=== PATIENT | female | born 1985 | race Caucasian/White ===

== ENCOUNTER → 2016-11-27 | Outpatient (CLI) | payer OTHER ==
--- NOTE | 2016-11-27 10:11 | XR ---
EXAMINATION TYPE: XR ankle complete RT DATE OF EXAM: 11/27/2016 COMPARISON: NONE HISTORY: Pain FINDINGS: Three views of the ankle demonstrate the ankle mortise to be intact and symmetric. The joint spaces are preserved. The osseous structures are intact. IMPRESSION: 1. No definite acute fracture or dislocation, if symptoms persist follow-up study in 7 to 10 days wou ld be suggested. Fifth metatarsals not adequately seen by x-ray the ankle. If there is concern for fi fth metatarsal injury correlate with dedicated foot series. 2. There does appear to be soft tissue edema surrounding the ankle.
== END | disposition home or self-care (01) ==
LOC: RADXRMAIN 09:34
PROVIDERS: ATTEND Physician Assistant
DX: S99.911D Unspecified injury of right ankle, subsequent encounter (principal)

== ENCOUNTER 2017-08-21 18:54 | Emergency (ER) | payer OTHER ==
[2017-08-21] MEDS ORDERED: SODIUM CHLORIDE 0.9% 1,000 ML IV STA ×2 (18:59)
[2017-08-21] MEDS ORDERED: ACETAMINOPHEN IV (For NPO) 1,000 MG in EMPTY BAG 1 BAG IVPB STA (18:59)
[2017-08-21 19:01] VITALS: RESP 18
[2017-08-21 19:12] LABS: Glucose,Whole Blood 115 mg/dL (75-99)
[2017-08-21 19:19] LABS: Basophils # (A) 0.1 k/uL (0-0.2); Basophils % (A) 1 %; Eosinophils # (A) 0.3 k/uL (0-0.7); Eosinophils % (A) 2 %; HCT 43.7 % (34.0-46.0); HGB 15.1 gm/dL (11.4-16.0); Lymphocytes # (A) 2.6 k/uL (1.0-4.8); Lymphocytes % (A) 16 %; MCH 33.1 pg (25.0-35.0); MCHC 34.5 g/dL (31.0-37.0); MCV 95.9 fL (80.0-100.0); Mean Platelet Volume 6.7; Monocytes # (A) 0.8 k/uL (0-1.0); Monocytes % (A) 5 %; Neutrophils # (A) 12.2 k/uL (1.3-7.7); Neutrophils % (A) 75 %; Platelet Count 430 k/uL (150-450); RBC 4.56 m/uL (3.80-5.40); RDW 12.6 % (11.5-15.5); WBC 16.2 k/uL (3.8-10.6)
[2017-08-21 19:28] LABS: ALT 69 U/L (9-52); AST 99 U/L (14-36); Albumin 4.8 g/dL (3.5-5.0); Alcohol <10 mg/dL; Alkaline Phosphatase 82 U/L (38-126); Amylase 52 U/L (30-110); Anion Gap 15 mmol/L; Blood Urea Nitrogen 18 mg/dL (7-17); Calcium 10.5 mg/dL (8.4-10.2); Carbon Dioxide 24 mmol/L (22-30); Chloride 98 mmol/L (98-107); Glucose 101 mg/dL (74-99); Lipase 133 U/L (23-300); Potassium 4.2 mmol/L (3.5-5.1); Sodium 137 mmol/L (137-145); Total Bilirubin 2.6 mg/dL (0.2-1.3); Total Protein 7.7 g/dL (6.3-8.2)
--- NOTE | 2017-08-21 19:35 | XR ---
EXAMINATION TYPE: XR chest 1V portable DATE OF EXAM: 08/21/2017 COMPARISON: 09/22/2013 HISTORY: Crushed by a horse pain TECHNIQUE: Single frontal view of the chest is obtained. FINDINGS: Heart and mediastinum are normal. Lungs are clear. Diaphragm is normal. There is no sign o f pleural effusion or pneumothorax. Bony thorax appears intact. IMPRESSION: Normal chest. No change.
[2017-08-21 19:36] LABS: Creatine Kinase 377 U/L (30-135); INR 1.1 (<1.2); Prothrombin Time 10.3 sec (9.0-12.0)
--- NOTE | 2017-08-21 19:36 | XR ---
EXAMINATION TYPE: XR pelvis AP view DATE OF EXAM: 08/21/2017 COMPARISON: NONE HISTORY: Trauma. Crush by worse TECHNIQUE: Single view FINDINGS: The pelvic ring is intact. Proximal femurs and hip joints appear normal. Sacroiliac joints appear normal. IMPRESSION: Normal pelvis
--- NOTE | 2017-08-21 19:42 | ED ---
General Adult HPI - General Chief complaint: Trauma Stated complaint: LOWER BACK INJURY, HORSE FELL ON HER Time Seen by Provider: 08/21/17 18:58 Source: patient, RN notes reviewed, old records reviewed Mode of arrival: wheelchair Limitations: no limitations - History of Present Illness Initial comments: This is a 32-year-old female to the ER for evaluation. This patient presents for evaluation regarding found. Patient is no real significant medical history , patient comes in by family car for evaluation regarding course on outpatient. Patient already is back pain. No loss conscious did not hit her head, patient denies taking any current medications. Denies drugs or alcohol today. Patient is alert and oriented to chest pain. No nausea vomiting. No active bleeding - Related Data Home Medications Medication Instructions Recorded Confirmed LORazepam [Ativan] 1 mg PO TID PRN 08/21/17 08/21/17 Allergies Allergy/AdvReac Type Severity Reaction Status Date / Time No Known Allergies Allergy Verified 09/22/13 19:23 Review of Systems ROS Statement: Those systems with pertinent positive or pertinent negative responses have been documented in the HPI. ROS Other: All systems not noted in ROS Statement are negative. Past Medical History Additional Past Medical History / Comment(s): PNEUMOTHORAX, lupus History of Any Multi-Drug Resistant Organisms: None Reported Additional Past Surgical History / Comment(s): CHEST TUBE INSERTION Past Psychological History: Anxiety Smoking Status: Current some day smoker Past Alcohol Use History: Occasional Past Drug Use History: Heroin General Exam Limitations: no limitations General appearance: alert, in no apparent distress, anxious Head exam: Present: atraumatic, normocephalic, normal inspection Eye exam: Present: normal appearance, PERRL, EOMI. Absent: scleral icterus, conjunctival injection, periorbital swelling ENT exam: Present: normal exam, mucous membranes moist Neck exam: Present: normal inspection. Absent: tenderness, meningismus, lymphadenopathy Respiratory exam: Present: normal lung sounds bilaterally. Absent: respiratory distress, wheezes, rales, rhonchi, stridor Cardiovascular Exam: Present: regular rate, normal rhythm, normal heart sounds. Absent: systolic murmur, diastolic murmur, rubs, gallop, clicks GI/Abdominal exam: Present: soft, normal bowel sounds. Absent: distended, tenderness, guarding, rebound, rigid Extremities exam: Present: normal inspection, full ROM, normal capillary refill. Absent: tenderness, pedal edema, joint swelling, calf tenderness Back exam: Present: normal inspection Neurological exam: Present: alert, oriented X3, CN II-XII intact Psychiatric exam: Present: normal affect, normal mood Skin exam: Present: warm, dry, intact, normal color. Absent: rash Course Vital Signs 08/21/17 18:59 Temperature 98.5 F Pulse Rate 76 Respiratory 18 Rate Blood Pressure 83/51 O2 Sat by Pulse 100 Oximetry - Reevaluation(s) Reevaluation #1: 08/21/17 20:01 Surgeries patient regarding symptoms and event. they are aware Reevaluation #2: 08/21/17 20:02 patient has adequate pain control EKG Findings - EKG Comments: EKG Findings:: EKG shows normal sinus rhythm rate of 75, TN 1:30, QRS 86, QTc 428 Medical Decision Making - Medical Decision Making 32 female the ER status post ORIF regarding injury, patient does have back pain , back contusion, possible hairline sacral fracture. No treatment needed. Patient given pain control here in the ER, Motrin, for pain at home. No neurological deficit. Patient can be discharged - Lab Data Result diagrams: 08/21/17 19:10 08/21/17 19:10 Lab Results 08/21/17 08/21/17 08/21/17 Range/Units 19:10 19:10 19:10 WBC 16.2 H (3.8-10.6) k/uL RBC 4.56 (3.80-5.40) m/uL Hgb 15.1 (11.4-16.0) gm/dL Hct 43.7 (34.0-46.0) % MCV 95.9 (80.0-100.0) fL MCH 33.1 (25.0-35.0) pg MCHC 34.5 (31.0-37.0) g/dL RDW 12.6 (11.5-15.5) % Plt Count 430 (150-450) k/uL Neutrophils % 75 % Lymphocytes % 16 % Monocytes % 5 % Eosinophils % 2 % Basophils % 1 % Neutrophils # 12.2 H (1.3-7.7) k/uL Lymphocytes # 2.6 (1.0-4.8) k/uL Monocytes # 0.8 (0-1.0) k/uL Eosinophils # 0.3 (0-0.7) k/uL Basophils # 0.1 (0-0.2) k/uL PT (9.0-12.0) sec INR (<1.2) APTT (22.0-30.0) sec Sodium 137 (137-145) mmol/L Potassium 4.2 (3.5-5.1) mmol/L Chloride 98 (98-107) mmol/L Carbon Dioxide 24 (22-30) mmol/L Anion Gap 15 mmol/L BUN 18 H (7-17) mg/dL Creatinine 0.90 (0.52-1.04) mg/dL Est GFR (CKD-EPI)AfAm >90 (>60 ml/min/1.73 sqM) Est GFR (CKD-EPI)NonAf 85 (>60 ml/min/1.73 sqM) Glucose 101 H (74-99) mg/dL POC Glucose (mg/dL) 115 H (75-99) mg/dL POC Glu Data Collection Technician ID Petitjayden Becky Plasma Lactic Acid Brayden (0.7-2.0) mmol/L Calcium 10.5 H (8.4-10.2) mg/dL Total Bilirubin 2.6 H (0.2-1.3) mg/dL AST 99 H (14-36) U/L ALT 69 H (9-52) U/L Alkaline Phosphatase 82 (38-126) U/L Total Creatine Kinase (30-135) U/L CK-MB (CK-2) (0.0-2.4) ng/mL CK-MB (CK-2) Rel Index Troponin I (0.000-0.034) ng/mL Total Protein 7.7 (6.3-8.2) g/dL Albumin 4.8 (3.5-5.0) g/dL Amylase 52 (30-110) U/L Lipase 133 (23-300) U/L Serum Alcohol <10 mg/dL Blood Type Blood Type Recheck Antibody Screen Spec Expiration Date 08/21/17 08/21/17 08/21/17 Range/Units 19:10 19:10 19:10 WBC (3.8-10.6) k/uL RBC (3.80-5.40) m/uL Hgb (11.4-16.0) gm/dL Hct (34.0-46.0) % MCV (80.0-100.0) fL MCH (25.0-35.0) pg MCHC (31.0-37.0) g/dL RDW (11.5-15.5) % Plt Count (150-450) k/uL Neutrophils % % Lymphocytes % % Monocytes % % Eosinophils % % Basophils % % Neutrophils # (1.3-7.7) k/uL Lymphocytes # (1.0-4.8) k/uL Monocytes # (0-1.0) k/uL Eosinophils # (0-0.7) k/uL Basophils # (0-0.2) k/uL PT 10.3 (9.0-12.0) sec INR 1.1 (<1.2) APTT 21.0 L (22.0-30.0) sec Sodium (137-145) mmol/L Potassium (3.5-5.1) mmol/L Chloride (98-107) mmol/L Carbon Dioxide (22-30) mmol/L Anion Gap mmol/L BUN (7-17) mg/dL Creatinine (0.52-1.04) mg/dL Est GFR (CKD-EPI)AfAm (>60 ml/min/1.73 sqM) Est GFR (CKD-EPI)NonAf (>60 ml/min/1.73 sqM) Glucose (74-99) mg/dL POC Glucose (mg/dL) (75-99) mg/dL POC Glu Data Collection Technician ID Plasma Lactic Acid Brayden 3.2 H* (0.7-2.0) mmol/L Calcium (8.4-10.2) mg/dL Total Bilirubin (0.2-1.3) mg/dL AST (14-36) U/L ALT (9-52) U/L Alkaline Phosphatase (38-126) U/L Total Creatine Kinase 377 H (30-135) U/L CK-MB (CK-2) 9.2 H* (0.0-2.4) ng/mL CK-MB (CK-2) Rel Index 2.4 Troponin I <0.012 (0.000-0.034) ng/mL Total Protein (6.3-8.2) g/dL Albumin (3.5-5.0) g/dL Amylase (30-110) U/L Lipase (23-300) U/L Serum Alcohol mg/dL Blood Type Blood Type Recheck Antibody Screen Spec Expiration Date 08/21/17 Range/Units 19:10 WBC (3.8-10.6) k/uL RBC (3.80-5.40) m/uL Hgb (11.4-16.0) gm/dL Hct (34.0-46.0) % MCV (80.0-100.0) fL MCH (25.0-35.0) pg MCHC (31.0-37.0) g/dL RDW (11.5-15.5) % Plt Count (150-450) k/uL Neutrophils % % Lymphocytes % % Monocytes % % Eosinophils % % Basophils % % Neutrophils # (1.3-7.7) k/uL Lymphocytes # (1.0-4.8) k/uL Monocytes # (0-1.0) k/uL Eosinophils # (0-0.7) k/uL Basophils # (0-0.2) k/uL PT (9.0-12.0) sec INR (<1.2) APTT (22.0-30.0) sec Sodium (137-145) mmol/L Potassium (3.5-5.1) mmol/L Chloride (98-107) mmol/L Carbon Dioxide (22-30) mmol/L Anion Gap mmol/L BUN (7-17) mg/dL Creatinine (0.52-1.04) mg/dL Est GFR (CKD-EPI)AfAm (>60 ml/min/1.73 sqM) Est GFR (CKD-EPI)NonAf (>60 ml/min/1.73 sqM) Glucose (74-99) mg/dL POC Glucose (mg/dL) (75-99) mg/dL POC Glu Data Collection Technician ID Plasma Lactic Acid Brayden (0.7-2.0) mmol/L Calcium (8.4-10.2) mg/dL Total Bilirubin (0.2-1.3) mg/dL AST (14-36) U/L ALT (9-52) U/L Alkaline Phosphatase (38-126) U/L Total Creatine Kinase (30-135) U/L CK-MB (CK-2) (0.0-2.4) ng/mL CK-MB (CK-2) Rel Index Troponin I (0.000-0.034) ng/mL Total Protein (6.3-8.2) g/dL Albumin (3.5-5.0) g/dL Amylase (30-110) U/L Lipase (23-300) U/L Serum Alcohol mg/dL Blood Type O Positive Blood Type Recheck No Antibody Screen NEGATIVE Spec Expiration Date 08/24/2017 - 2309 - Radiology Data Radiology results: report reviewed (CT chest and pelvis is negative for traumatic injury possible sacral hairline fracture), image reviewed Disposition Clinical Impression: Back contusion, Back pain, Injury while horseback riding Narrative: Possible Sacrum Fx Disposition: HOME SELF-CARE Condition: Good Instructions: Contusion in Adults (ED) Is patient prescribed a controlled substance at d/c from ED?: No Referrals: Jude Barksdale DO [Primary Care Provider] - 1-2 days
[2017-08-21 19:50] LABS: Troponin I <0.012 ng/mL (0.000-0.034)
[2017-08-21 20:09] LABS: Creatine Kinase MB 9.2 ng/mL (0.0-2.4)
[2017-08-21] MEDS ORDERED: MORPHINE SULFATE 2 MG/ML SYRINGE IVP STA (20:40)
--- NOTE | 2017-08-21 20:40 | CT ---
EXAMINATION TYPE: CT ChestAbdPelvis w con DATE OF EXAM: 08/21/2017 COMPARISON: NONE HISTORY: Horse fell on top of patient CT DLP: 1176 mGycm Automated exposure control for dose reduction was used. CONTRAST: CT scan of the chest, abdomen and pelvis is performed without Oral Contrast and with IV Contrast, pat ient injected with 100 mL of Isovue 300. FINDINGS: The lungs are clear. There is no evidence of pleural effusion or pneumothorax. Heart size is normal. Mediastinum is normal. Thoracic and abdominal aorta appear intact. Liver spleen pancreas gallbladder appear normal. Bile ducts are not dilated. There is no adrenal mass . Kidneys show satisfactory contrast opacification. There is no hydronephrosis. Appendix appears norm al. I see no intestinal wall thickening. There are no dilated loops. Bladder distends smoothly. There is no evidence of a pelvic mass. There is no free fluid in the pelvis. The thoracic and lumbar spine appear intact.: There is a lucent line through the S1 vertebral body in the sagittal plane midline that could be a naik irline fracture. IMPRESSION: No evidence of traumatic injury within the chest abdomen pelvis. Possible hairline nondisplaced fracture of the midline sacrum at the S1 level.
[2017-08-21 21:21] LABS: Appearance,Urine Clear (Clear); Bilirubin,Urine Negative (Negative); Blood,Urine Trace (Negative); Color,Urine Yellow; Glucose,Urine (UA) Negative (Negative); Hyaline Casts,Urine 5 /lpf (0-2); Ketones,Urine 1+ (Negative); Leukocyte Esterase,Urine Negative (Negative); Nitrite,Urine Negative (Negative); PH, Urine 7.5 (5.0-8.0); Protein,Urine 1+ (Negative); RBC,Urine 2 /hpf (0-5); Squamous Epithelial Cell,Urine 5 /hpf (0-4); WBC,Urine 3 /hpf (0-5)
[2017-08-21 21:34] LABS: Cocaine Screen,Urine Not Detected (NotDetected); Opiate Screen,Urine Detected (NotDetected); Phencyclidine Screen,Urine Not Detected (NotDetected); Urn Cannabinoid Scrn Not Detected (NotDetected)
[2017-08-21 21:35] LABS: Amphetamine Screen,Urine Not Detected (NotDetected); Barbiturate Screen,Urine Not Detected (NotDetected); Benzodiazepines Screen,Urine Not Detected (NotDetected); Methadone Screen, Urine Not Detected (NotDetected); Oxycodone Screen, Urine Not Detected (NotDetected); Tricyclic Antidepressant,Urine Not Detected (NotDetected)
[2017-08-21 21:47] LABS: Specific Gravity,Urine >1.050 (1.001-1.035)
[2017-08-21 22:01] VITALS: BP 110/59; PULSE 70; TEMP 98
== END 2017-08-21 21:45 | disposition home or self-care (01) ==
LOC: EC 18:54
DX: S20.229A Contusion of unspecified back wall of thorax, initial encounter (principal); F17.200 Nicotine dependence, unspecified, uncomplicated; V80.010A Animal-rider injured by fall from or being thrown from horse in noncollision accident, initial encounter; W55.12XA Struck by horse, initial encounter; Y93.52 Activity, horseback riding
CPT/HCPCS: 36415; 93005; 86900; 86901; 80053; 82150; 82550; 82553; 83605; 83690; 84484; 85025; 85610; 85730; 86850; 81001; 81025; 80306; 80320; 72170; 71045; 71260; 74177; 99284; 96374; 96375; 96361 ×2; J2270; J0131; Q9967

== ENCOUNTER → 2018-06-21 | Outpatient (CLI) | payer OTHER ==
--- NOTE | 2018-06-21 22:45 | MR ---
EXAMINATION TYPE: MR abdomen wo/w con DATE OF EXAM: 06/21/2018 COMPARISON: CT chest abdomen pelvis August 21, 2017. HISTORY: Acute pancreatitis CONTRAST: Standard multiplanar, multisequence MRI departmental protocol utilizing 10 mL intravenous Gadavist ga dolinium contrast. Imaging is performed on the abdomen focusing on the pancreas. FINDINGS: Pancreas: Pancreas is overall normal in size. Postcontrast images show uniform enhancement without ar eas of nonenhancement or necrosis. No surrounding fluid or mesenteric inflammation is present. No julia picious solid or cystic mass is seen. Pancreatic duct is not well seen due to small caliber. No suspi cious dilatation is noted. Other: Lung bases are clear, no pleural or pericardial effusion is seen. The liver, gallbladder, sple en, and both adrenal glands are normal in size. There is no concerning renal mass or hydronephrosis. There is no suspicious small or large bowel dilatation. Osseous structures are intact. No abdominal a scites is seen. No suspicious abdominal adenopathy is noted. IMPRESSION: No MRI evidence for complication related to acute pancreatitis. Unremarkable study.
== END ==
LOC: RADMRIMAIN 11:10
PROVIDERS: ATTEND Internal Medicine
DX: K85.90 Acute pancreatitis without necrosis or infection, unspecified (principal)
CPT/HCPCS: 74183; A9585

== ENCOUNTER → 2018-07-05 | Outpatient (CLI) | payer OTHER ==
--- NOTE | 2018-07-05 21:49 | EST ---
EXERCISE STRESS AGE: 33 SEX: Female HT: 69 WT: 215 PROTOCOL: Ralph STAGE: 3 DURATION OF EXERCISE: 8:00 HEART RATE REST: 87 BLOOD PRESSURE REST: 119/75 MAXIMUM HEART RATE ACHIEVED: 166 MAXIMUM BLOOD PRESSURE: 183/90 85% MPHR: 158 100% MPHR: 186 METS: 9.7 INDICATIONS: Chest pain. CLINICAL INFORMATION: Baseline heart rate 87 beats per minute. Baseline blood pressure 119/75 mmHg. Patient exercised on Ralph protocol for 8 minutes, achieving a peak heart rate of 166 beats per minute. Normal blood pressure response to exercise. There was no ECG evidence for ischemia. No arrhythmias were noted. The patient complained of shortness of breath and chest pain the procedure. IMPRESSION: Average exercise capacity. Normal heart rate and blood pressure response to exercise. No arrhythmias noted. No ECG evidence for ischemia noted. Patient complained of shortness of breath and chest pain the procedure. MMODL / IJN: [id number] /
== END | disposition home or self-care (01) ==
LOC: RADNMMAIN 08:37
PROVIDERS: ATTEND Family Medicine
DX: R07.1 Chest pain on breathing (principal)
CPT/HCPCS: 93017

== ENCOUNTER 2018-10-24 10:19 | Day surgery (SDC) | payer OTHER ==
[2018-10-20 10:12] VITALS: BMI 31.0
[~2018-10-24 10:19] MED LIST: LACTATED RINGERS 1,000 ML IV SCH
[2018-10-24 10:48] VITALS: RESP 16; TEMP 97.8
[2018-10-24] MEDS ORDERED: LIDOCAINE 1% 20 ML VIAL (10MG/ML) FOR IV START INTRADERMA ONE (10:58)
[2018-10-24] MEDS ORDERED: LIDOCAINE 1% INJ 10MG/ML (20 ML MDV) ONE (11:26)
[2018-10-24] MEDS ORDERED: MIDAZOLAM 2 MG/2 ML VIAL ONE (11:26)
[2018-10-24] MEDS ORDERED: PROPOFOL 10 MG/ML 20 ML VIAL IV ONE (11:26)
[2018-10-24] MEDS ORDERED: fentaNYL (PF) 50 MCG/ML 2 ML AMP ONE (11:26)
--- NOTE | 2018-10-24 12:18 | P.PCN ---
Date of Procedure: 10/24/18 Description of Procedure: Brief history: Patient is a pleasant scheduled for an elective upper endoscopy as well as colonoscopy as a part of evaluation of GERD and a change in bowel habits. The patient reports breakthrough reflux on a daily basis. Currently the patient is on omeprazole 40 mg twice daily and ranitidine twice daily. She also had reported altered bowel functions with alternating constipation and diarrhea. Loose stools will occur up to 10 times per day. Stool studies in the hospital have been negative. Procedure performed: Esophagogastroduodenoscopy with biopsy Colonoscopy with biopsy and polypectomy Estimated blood loss: Minimal. Preoperative diagnosis: Gastroesophageal reflux disease, altered bowel function, abdominal pain Anesthesia: MAC Procedure: After informed consent was obtained from the patient was brought into the endoscopy unit and IV sedation was administered by anesthesia under continuous monitoring. Initially upper endoscopy was done. The Olympus GF 190 video endoscope was inserted inserted into the mouth and esophagus intubated without any difficulty and was gradually advanced into the stomach and duodenum and carefully examined. The bulb and second part of the duodenum appeared normal, with biopsies taken. The scope was then withdrawn into the stomach adequately insufflated with air and upon careful examination the antrum and body, cardia and fundus appeared normal, except for some mild scattered erythema in the antr um and body suggestive of mild gastritis with biopsies taken. The scope was then withdrawn into the esophagus. A 3 cm hiatal hernia was noted. The GE junction was located at 37 cm to the incisors. It appeared regular with no erythema erosions or ulcerations. Rest of the esophagus appeared normal, with biopsies of the midesophagus taken. Patient tolerated the procedure well. At this time the patient continued to remain sedation. Initial digital rectal examination was normal. Olympus CF 190 video colonoscope was then inserted into the rectum and gradually advanced to the cecum without any difficulty. Careful examination was performed as the scope was gradually being withdrawn. The prep was excellent. The cecum, ascending colon, transverse colon, descending colon, sigmoid colon and rectum appeared normal, with random biopsies taken of the right colon and left colon. The terminal ileum was also intubated and appeared normal with biopsies taken. 2 diminutive 2 mm rectal polyp was removed with cold forceps. Retroflexion was performed in the rectum and no lesions were noted, with mild internal hemorrhoids seen. Patient tolerated the procedure well. Impression: 1. Mild gastritis antrum and body, biopsied. 3 cm hiatal hernia. Duodenal biopsies. Mid esophageal biopsies. 2. Normal-appearing colon and terminal ileum, with biopsies of the terminal ileum, right colon and left colon. Mild internal hemorrhoids. Diminutive rectal polyp removed with cold forcep. Recommendations: Findings of this examination were discussed with the patient as well as her mother. Okay to resume diet. Await pathology from biopsies and polypectomy. Follow up with gastroenterology as previously scheduled. Continue current medical management.
[2018-10-24 12:44] VITALS: BP 130/84; PULSE 56
== END 2018-10-24 12:45 | disposition home or self-care (01) ==
LOC: ORWHC2ENDO 10:19
PROVIDERS: ATTEND Internal Medicine
DX: K62.1 Rectal polyp (principal); K44.9 Diaphragmatic hernia without obstruction or gangrene; K21.0 Gastro-esophageal reflux disease with esophagitis; K29.50 Unspecified chronic gastritis without bleeding; K64.8 Other hemorrhoids; M32.9 Systemic lupus erythematosus, unspecified; Z79.1 Long term (current) use of non-steroidal anti-inflammatories (NSAID); Z79.899 Other long term (current) drug therapy; Z87.891 Personal history of nicotine dependence; Z80.8 Family history of malignant neoplasm of other organs or systems
CPT/HCPCS: 81025; 88305; 45380; 43239; J2250; J2001; J3010; J2704

== ENCOUNTER 2019-03-01 01:42 | Observation (INO) | payer OTHER ==
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
[2019-03-01 02:59] LABS: Basophils # (A) 0.1 k/uL (0-0.2); Basophils % (A) 2 %; Eosinophils # (A) 0.2 k/uL (0-0.7); Eosinophils % (A) 4 %; HCT 44.1 % (34.0-46.0); HGB 14.9 gm/dL (11.4-16.0); Lymphocytes # (A) 2.5 k/uL (1.0-4.8); Lymphocytes % (A) 40 %; MCH 34.7 pg (25.0-35.0); MCHC 33.9 g/dL (31.0-37.0); MCV 102.5 fL (80.0-100.0); Mean Platelet Volume 7.1; Monocytes # (A) 0.4 k/uL (0-1.0); Monocytes % (A) 6 %; Neutrophils # (A) 2.8 k/uL (1.3-7.7); Neutrophils % (A) 46 %; Platelet Count 419 k/uL (150-450); RDW 11.8 % (11.5-15.5); WBC 6.2 k/uL (3.8-10.6)
[2019-03-01 03:07] LABS: ALT 57 U/L (4-34); AST 59 U/L (14-36); Acetaminophen <10.0 ug/mL; African American GFR (CKD) >90 (>60 ml/min/1.73 sqM); Albumin 4.6 g/dL (3.5-5.0); Alkaline Phosphatase 79 U/L (38-126); Anion Gap 12 mmol/L; Blood Urea Nitrogen 17 mg/dL (7-17); Calcium 9.7 mg/dL (8.4-10.2); Carbon Dioxide 24 mmol/L (22-30); Chloride 111 mmol/L (98-107); Glucose 121 mg/dL (74-99); Non-African American GFR(CKD) >90 (>60 ml/min/1.73 sqM); Salicylate <1.0 mg/dL; Sodium 147 mmol/L (137-145); Total Bilirubin 0.5 mg/dL (0.2-1.3); Total Protein 7.8 g/dL (6.3-8.2)
[2019-03-01 03:20] LABS: Alcohol 318 mg/dL
[2019-03-01] MEDS ORDERED: NALOXONE 0.4 MG/ML 1 ML VIAL IV PRN (03:29)
[2019-03-01] MEDS ORDERED: ONDANSETRON 4 MG/2 ML VIAL IVP PRN (04:54)
[2019-03-01] MEDS: diphenhydrAMINE 25 MG CAP PO STA ×2 (10:01→10:05)
[2019-03-01 13:33] VITALS: BP 109/74; PULSE 94; RESP 20; TEMP 97.8
--- NOTE | 2019-03-01 14:23 | P.CN ---
Psychiatric Consult - . Consult date: 03/01/19 Consult:: Reason for consultation: Suicidal ideation. Identifying data: Patient is a 33-year-old single female who currently lives with her boyfriend and 14-year-old daughter, and he reported history of depression and anxiety disorders. The patient was seen while she was at again floor. Chief complaint and history of present illness: The patient was admitted to observation unit because of alcohol intoxication, and she was brought to the hospital for psychiatric evaluation after what reported suicidal attempt. Patient was drowsy and not able to give informative history, but she minimizes the incident and he reports didn't intend to hurt herself but she was very agitated after had an argument with her 14-year-old daughter and felt nobody helps her or supports her at home. According to nursing staff and the medical floor the patient took extra Klonopin and he told the family that she doesn't want to wake up. The patient was brought into the hospital by police and petitioned for intoxication and suicidal attempt as per petition paper. Patient was very superficial and vague in her answers today, and even she tried to minimize the incident but continued to present depressed and probably she tried to overdose of impulsively overdosed in context of severe agitation and conflict with her family members. Patient couldn't recall how much Klonopin she talked last night or how much alcohol she drunk, but apparently she was intoxicated when she came to the hospital and her BAL was more than 300. Patient reports previous episodes of depression with lack of motivation, depressed mood, sometimes feeling hopeless and worthless which could last for a few days. She reports symptoms of severe anxiety for most of the days with racing thoughts, feeling tense and not easy to relax. She reports very severe panic attacks for which she takes Klonopin. She reports history of nightmares but she couldn't give any further information. She denies current or history of psychotic or manic symptoms. Patient reports sleep problems and history of depression and anxiety disorders. She reports been treated for depression in the past and she is currently prescribed Klonopin for anxiety symptoms. Past psychiatric history: Previous psychiatric hospitalization: Denies any previous hospitalizations. Previous suicidal attempts: Denies. Previous psychiatric treatment: Previous treatment for depression with [facility] but couldn't give further information. Used to see psychiatrist when she was younger and last time saw counselor was 8 months ago. Substance use history: Nicotine: Reports to smoking cigarettes "off and on. Alcohol: Reports history of severe alcohol use disorder, and she is trying to stop drinking. She was very vague about recent use of alcohol. Reports history of DUI, severe intoxication and previous treatment for alcohol use disorder. Denies history of severe alcohol withdrawal or previous detoxification. Cannabis: Reports previous use of marijuana with the last time long time ago. Reports history of using street drugs but she was very vague and did not give informative history. As per chart review the patient has history of opioid withdrawal in the past. Family history of psychiatric illness: Denies any family history of mental illness, substance use disorder, or suicide. Brief social history: Patient is currently living with her boyfriend and her 14-year-old daughter. She is currently unemployed. History of being in care home due to DUI. Mental status examination; Appearance: The patient appears stated age, fairly groomed, above average body built, no specific features. Gait/posture: Patient was lying in bed. Attitude and behavior: Not fully engaged, not fully cooperative, intermittent eye contact. Motor activity: Decreased psychomotor activity Speech: Slow rate, low volume, not pressured Mood: Anxious, irritable Affect: Restricted Thought form: goal-directed, linear, coherent. Thought content: Non-delusional, denies suicidal thoughts, denies homicidal thoughts, denies intentions or plans. Perception: Denies any auditory or visual hallucinations Attention: Impaired, drowsy. Orientation: Patient was oriented to time place person and situation. Insight: Patient has limited insight about her psychiatric disorder. Judgment: Patient has limited judgment about her psychiatric treatment. Assessment: Unspecified depressive disorder. Rule out generalized anxiety disorder. Alcohol use disorder, severe. Rule out alcohol withdrawal. Recommendations: Addressed and ensured patient's safety, even patient denies active suicidal thoughts, intention or plan, but she was brought to the hospital after what reported suicidal attempt by overdose on alcohol and prescription benzodiazepines. The patient was very vague giving the history and has limited insight about her act by overdosing on medications. No reports about social support at home, and even her daughter and boyfriend were the trigger for her to feel agitated and overdosed on pills. Patient is not psychiatrically stable, and does meet the criteria for psychiatric hospitalization. Transfer the patient to psychiatric unit once she is medically stable. Medication management: None at this time Continue one to one observation for safety. Continue monitoring for Alcohol withdrawal symptoms and consider PRN Ativan based on CIWA score. Discussed the treatment plan with the requesting physician/service. Brief supportive psychotherapy was provided regarding patient's acute and chronic stressors. Psychoeducation was provided to the patient. Thank you for permitting me to assist in this patient's treatment. Please call psychiatry department if you have any question or need further help with this case.
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
--- NOTE | 2019-03-01 14:50 | P.DS ---
Providers Date of admission: 03/01/19 03:29 Attending physician: Hero Pedersen Consults: 03/01/19 03:29 Consult Physician Urgent Consulting Provider: Jemima Arellano Consult Reason/Comments: suicidal, attempted sucide by alcohol and benzo Do you want consulting provider notified?: Yes, Notify in am Primary care physician: Jude Barksdale [place] [facility] Course: Refer to [facility] for further details Patient Condition at Discharge: Fair Plan - Discharge Summary New Discharge Prescriptions: Continue clonazePAM [KlonoPIN] 1 mg PO TID Ergocalciferol [Vitamin D2 (DRISDOL)] 50,000 unit PO Q7D Pantoprazole [Protonix] 40 mg PO DAILY Omeprazole 20 mg PO DAILY metFORMIN HCL ER [Glucophage Xr] 500 mg PO BID Estarylla 0.25mg-35mcg 1 tab PO DAILY Escitalopram [Lexapro] 10 mg PO DAILY Melatonin 10 mg PO HS Discharge Medication List Ergocalciferol [Vitamin D2 (DRISDOL)] 50,000 unit PO Q7D 10/20/18 [History] clonazePAM [KlonoPIN] 1 mg PO TID 10/20/18 [History] Escitalopram [Lexapro] 10 mg PO DAILY 03/01/19 [History] Estarylla 0.25mg-35mcg 1 tab PO DAILY 03/01/19 [History] Melatonin 10 mg PO HS 03/01/19 [History] Omeprazole 20 mg PO DAILY 03/01/19 [History] Pantoprazole [Protonix] 40 mg PO DAILY 03/01/19 [History] metFORMIN HCL ER [Glucophage Xr] 500 mg PO BID 03/01/19 [History] Follow up Appointment(s)/Referral(s): Jude Barksdale DO [Primary Care Provider] - 1-2 days Discharge Disposition: TRANSFER TO PSYCH HOSP/UNIT
== END 2019-03-01 16:33 ==
LOC: EC 01:42 → 6NMEDSUR 03:29
PROVIDERS: ADMIT Hospitalist; ATTEND Hospitalist
DX: F32.9 Major depressive disorder, single episode, unspecified (principal); F10.929 Alcohol use, unspecified with intoxication, unspecified; K70.10 Alcoholic hepatitis without ascites; K21.9 Gastro-esophageal reflux disease without esophagitis; M32.9 Systemic lupus erythematosus, unspecified; K44.9 Diaphragmatic hernia without obstruction or gangrene; F41.9 Anxiety disorder, unspecified; F41.0 Panic disorder [episodic paroxysmal anxiety]; F17.210 Nicotine dependence, cigarettes, uncomplicated; E66.9 Obesity, unspecified; Z68.30 Body mass index [BMI] 30.0-30.9, adult; Z79.899 Other long term (current) drug therapy; Z87.09 Personal history of other diseases of the respiratory system; Z87.19 Personal history of other diseases of the digestive system; Z86.19 Personal history of other infectious and parasitic diseases; Z87.440 Personal history of urinary (tract) infections; Z98.890 Other specified postprocedural states; Z87.898 Personal history of other specified conditions; Z79.84 Long term (current) use of oral hypoglycemic drugs; Y90.8 Blood alcohol level of 240 mg/100 ml or more
CPT/HCPCS: 82075; 99285; 36415; 80053; 85025; 83520; G0378; G0480 ×2; 80320; 80329

== ENCOUNTER 2019-03-01 15:21 | Inpatient (IN) | payer MEDICAID ==
[2019-03-01] MEDS ORDERED: ZIPRASIDONE 20 MG VIAL IM PRN (16:38)
[2019-03-01] MEDS ORDERED: MAGNESIUM HYDROXIDE 2,400 MG/10 ML CUP PO PRN (16:38)
[2019-03-01] MEDS ORDERED: MAG HYDROX/AL HYDROX/SIMETH 30 ML CUP PO PRN (16:38)
[2019-03-01] MEDS ORDERED: LORazepam 1 MG TAB PO PRN (16:38)
[2019-03-01] MEDS ORDERED: traZODone HCL 50 MG TAB PO PRN (16:42)
[2019-03-01] MEDS: ACETAMINOPHEN TAB 325 MG TAB PO PRN ×2 (17:16→20:08)
[2019-03-01] MEDS: LORazepam 1 MG TAB PO PRN (20:10)
[2019-03-02] MEDS: ACETAMINOPHEN TAB 325 MG TAB PO PRN ×3 (01:57→20:33)
[2019-03-02] MEDS: LORazepam 1 MG TAB PO PRN (01:58)
[2019-03-02] MEDS: NICOTINE 14MG/24HR PATCH TRANSDERM SCH (09:49)
[2019-03-02] MEDS: hydrOXYzine PAMOATE 25 MG CAP PO PRN (09:49)
[2019-03-02] MEDS: VORTIOXETINE HYDROBROMIDE 10 MG TABLET PO SCH (10:28)
--- NOTE | 2019-03-02 10:55 | P.HP ---
Psychiatric H&P - . 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 The patient has been admitted to our inpatient psychiatric services after been transferred from medical floor-observation unit-at the patient was initially admitted because of alcohol intoxication and possible suicidal behavior. The patient has been admitted on voluntary basis to our service. CHIEF COMPLAINT: "I just was overwhelmed and frustrated." HISTORY OF PRESENT ILLNESS: I evaluated the patient yesterday for psychiatric consultation when she was at the medical floor, and she was drowsy, not able to give informative history, with very superficial and vague answers. Today the patient is fully alert, oriented, and fully engaged and cooperative with the evaluation. Patient reports that she never tried to kill herself and she never meant to end her life when she told her daughter "I don't want to be around anymore". Patient explained that she was feeling overwhelmed and distressed because she didn't get any help from her daughter or her boyfriend and she was extremely frustrated and upset. Patient admitted that because she talk all her medications (Trintillex, omeprazole, control, metformin, and Klonopin) after the argument with her daughter, so her daughter thought that she tried to overdose. Patient admitted that she took 1 extra tablet of Klonopin to help with the anxiety and agitation. Patient admits for drinking heavily same night she came to the hospital and explained that she was invited to constitution party for [employer] and she lost control and drunk more than she should. She reports history of alcohol use disorder and she has been sober for more than 6 years besides a few incidents of heavy drinking mainly because of loss of control and feel pressured to drink during events or parts. She reports the last time she had similar incident of heavy drinking was 6 months ago. Patient denies any suicidal thoughts, intention, or plan currently or when she broke her medications before this hospitalization. She denies any previous suicidal thoughts, or attempt. Patient reports she would never think about hurting herself because she loves her life, her daughter and she was stalking very positive about her daughter "she is the sweetest and his smartest girl", and patient reports her Sabianism believes are against suicide. Patient reports history of depression symptoms with times feeling loss of motivation, depressed mood, and isolating herself which usually lasts for 1 or 2 days, and she reports Trintillex is helping with her depression symptoms. She reports history of severe anxiety for most of the days with racing thoughts, sometimes feeling extremely tense and not easy to relax. She reports history of severe panic attacks and she is prescribed Klonopin to help with these attacks. She denies any history of nightmares, flashbacks, avoidance behavior or other PTSD symptoms. She denies history of psychosis including auditory, visual hallucinations, paranoid ideation, and no delusions could be elicited. She denies any current or previous symptoms of eleanor including euphoric mood, bouts of unusual increased energy, lack need to sleep due to increased activities, grandiosity, or irrational behavior. She denies any history of self-injurious behavior. Patient denies any current symptoms of alcohol withdrawal. PAST PSYCHIATRIC HISTORY: Previous diagnoses: Depression, anxiety disorders Previous psychiatric hospitalizations: Denies any previous psychiatric hospitalizations. Previous suicide attempts: Denies. Previous outpatient psychiatric treatment: History of previous counseling and therapy, last time was few month ago. Current psychiatric medications: Currently receives antidepressant medication Trintillex, and Klonopin as needed for panic attacks. SUBSTANCE ABUSE HISTORY: Nicotine: Occasionally smokes cigarettes. Alcohol: Admitted for history of alcohol use disorder. She has been sober for more than 6 years besides a few incidents of heavy drinking "almost 1 or 2 incidents every year". 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 Reports history of inpatient alcohol use disorder treatment 6 years ago. History of previous DUIs. Denies any current history of using street drugs including marijuana Social History: Patient was born in [place] and raised up by both parents. Parents are still . Housing: Currently lives with her boyfriend and 14-year-old daughter. The patient is currently for 3 years. 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 Receives Social Security Education: Patient reports attaining an educational level of high school and some college. Children: Patient reports having 1 child 14-year-old daughter Legal history: Reveals addressed and being in snf due to DUIs, last time was more than 6 years ago History of psychological trauma: Denies any history of abuse or psychological trauma FAMILY HISTORY: Psychiatric Illness: Reports her mother and 2 sisters suffering from depression symptoms. Substance abuse: Her paternal grandmother was suffering from alcohol problems. Completed Suicides: Denies. Medical History: Systemic lupus, polycystic ovary MENTAL STATUS EVALUATION: Appearance: Appears stated age, fairly groomed, above average body built, and no specific features. Gait/ posture: Steady gait, normal arm swinging, no abnormal movements, with relaxed posture. Attitude and Behavior: Cooperative , fairly related to the interviewer in socially accepted manner, fair eye contact during course of interview. Motor Activity: normal psychomotor activity. Speech: spontaneous, normal rate, rhythm, and articulation. normal volume. not pressured. Language: Articulating, naming objects and repeat phrases. Mood: "fine" Affect: Appropriate. Thought process: Linear, goal-directed. Association: Intact. Thought content: no delusions, Denies suicidal thoughts, Denies homicidal thoughts, Denies intentions, or plans. Perception: Denies any hallucinations Alertness: No impairment. Concentration: No impairment Orientation: Oriented to time, person, place and situation Insight regarding psychiatric condition: fair Judgment regarding daily activities and social situation: fair Impulse control: fair Strengths: Housing. Social support. Financial stability. Stable general medical condition Challenges: Alcohol drinking. Poor coping skills Review of Lab results: Assessment: Unspecified depressive disorder. Rule out generalized anxiety disorder. Alcohol use disorder, severe. Rule out alcohol withdrawal. TREATMENT PLAN/RECOMMENDATIONS: Medical Decision making: The patient presented with severe alcohol intoxication and it was reported patient had suicidal ideation. The patient is showing stability of her psychiatric symptoms, and currently denies any suicidal or homicidal thoughts, intention, or plan. The patient was admitted to the psychiatric floor for further monitoring and arrange for safe discharge. Therefore, the patient could be discharged tomorrow. Continue the patient inpatient for safety. Continue the patient under 15 minutes safe check for safety. The patient will also be provided with individual therapy, group therapy, substance abuse counseling, gain insight, and coping skills. Consider medical consultation if any acute medical issue arise. Medications: Continue Trintellix 10 mg daily for depression and anxiety symptoms. Continue Vistaril when necessary for anxiety. Continue monitoring for alcohol withdrawal symptoms and use when necessary Ativan based on CIWA score. Patient didn't show any severe withdrawal symptoms. Prognosis is fair, contingent on patient has been compliant with his medications and has been followed up closely with outpatient mental health provider after discharge. The patient will be assessed on daily basis for his depression, suicidal ideation, and will be discharged back to his outpatient mental health provider upon stabilization. EXPECTED LENGTH OF STAY: 1-2 days. Allergies Allergy/AdvReac Type Severity Reaction Status Date / Time No Known Allergies Allergy Verified 03/01/19 18:33 Vital Signs Temp 100.1 F H 03/02/19 09:52 Pulse 115 H 03/02/19 09:52 Resp 20 03/02/19 09:52 BP 153/85 03/02/19 09:52 Pulse Ox 97 03/02/19 09:52 Intake & Output 03/01/19 03/02/19 03/02/19 18:59 06:59 18:59 Weight 94.34 kg Laboratory Last Values Triglycerides 558 mg/dL (<150) H 03/01/19 02:46 Cholesterol 164 mg/dL (<200) 03/01/19 02:46 LDL Cholesterol, Calc mg/dL (0-99) 03/01/19 02:46 HDL Cholesterol 48 mg/dL (40-60) 03/01/19 02:46 TSH 0.496 mIU/L (0.465-4.680) 03/01/19 02:46 03/02/19 10:26
[2019-03-02 12:57] VITALS: TEMP 99.1
[2019-03-02] MEDS ORDERED: MELATONIN 5 MG TABLET PO SCH (21:00)
[2019-03-02] MEDS ORDERED: diphenhydrAMINE 50 MG CAP PO SCH (21:00)
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
[2019-03-03] MEDS: hydrOXYzine PAMOATE 25 MG CAP PO PRN ×2 (02:35→09:28)
[2019-03-03] MEDS: LORazepam 1 MG TAB PO PRN ×2 (02:35→10:08)
[2019-03-03 04:11] VITALS: BP 126/79; PULSE 96; RESP 16
[2019-03-03] MEDS: VORTIOXETINE HYDROBROMIDE 10 MG TABLET PO SCH (09:26)
[2019-03-03] MEDS: NICOTINE 14MG/24HR PATCH TRANSDERM SCH (09:26)
[2019-03-03 09:56] LABS: Albumin 4.4 g/dL (3.5-5.0); Bilirubin,Unconjugated 0.9 mg/dL (0.0-1.1); Total Bilirubin 1.2 mg/dL (0.2-1.3); Total Protein 7.5 g/dL (6.3-8.2)
[2019-03-03 09:57] LABS: Bilirubin, Delta 0.3 mg/dL (0.0-0.2)
--- NOTE | 2019-03-03 11:22 | P.DS ---
Providers Date of admission: 03/01/19 16:31 Expected date of discharge: 03/03/19 Attending physician: Elizabeth Sanchez MD Consults: 03/01/19 16:38 Consult Physician Routine Consulting Provider: Hero Pedersen Consult Reason/Comments: H & P and medical care Do you want consulting provider notified?: Yes Primary care physician: [facility] Course: Brief HPI: As per the HPI from initial psychiatric evaluation during this hospital stay: " I evaluated the patient yesterday for psychiatric consultation when she was at the medical floor, and she was drowsy, not able to give informative history, with very superficial and vague answers. Today the patient is fully alert, oriented, and fully engaged and cooperative with the evaluation. Patient reports that she never tried to kill herself and she never meant to end her life when she told her daughter "I don't want to be around anymore". Patient explained that she was feeling overwhelmed and distressed because she didn't get any help from her daughter or her boyfriend and she was extremely frustrated and upset. Patient admitted that because she talk all her medications (Trintillex, omeprazole, control, metformin, and Klonopin) after the argument with her daughter, so her daughter thought that she tried to overdose. Patient admitted that she took 1 extra tablet of Klonopin to help with the anxiety and agitation. Patient admits for drinking heavily same night she came to the hospital and explained that she was invited to alliance party for [employer] and she lost control and drunk more than she should. She reports history of alcohol use disorder and she has been sober for more than 6 years besides a few incidents of heavy drinking mainly because of loss of control and feel pressured to drink during events or parts. She reports the last time she had similar incident of heavy drinking was 6 months ago. Patient denies any suicidal thoughts, intention, or plan currently or when she broke her medications before this hospitalization. She denies any previous suicidal thoughts, or attempt. Patient reports she would never think about hurting herself because she loves her life, her daughter and she was stalking very positive about her daughter "she is the sweetest and his smartest girl", and patient reports her Worship believes are against suicide. Patient reports history of depression symptoms with times feeling loss of motivation, depressed mood, and isolating herself which usually lasts for 1 or 2 days, and she reports Trintillex is helping with her depression symptoms. She reports history of severe anxiety for most of the days with racing thoughts, sometimes feeling extremely tense and not easy to relax. She reports history of severe panic attacks and she is prescribed Klonopin to help with these attacks. She denies any history of nightmares, flashbacks, avoidance behavior or other PTSD symptoms. She denies history of psychosis including auditory, visual naik llucinations, paranoid ideation, and no delusions could be elicited. She denies any current or previous symptoms of eleanor including euphoric mood, bouts of unusual increased energy, lack need to sleep due to increased activities, grandiosity, or irrational behavior. She denies any history of self-injurious behavior. Patient denies any current symptoms of alcohol withdrawal. " Hospital Course: Psychiatric: The patient was continued on Trintillex which was home medication, and Benadryl was added to help with insomnia. The medication doses has been adjusted to optimize the stability of the psychiatric symptoms, and to avoid side effects. Patient tolerated the above medication/s very well, without side effects. The patient was admitted for a safe and supportive environment. A psychiatric, medical, and psychosocial evaluations were done on admission. The patient's hospital stay is unremarkable. Patient did not exhibit any aggression towards herself or others during this hospitalization, and there was no requirements for emergency medications or restraints. The patient attended groups to obtain coping skills and process stress. Patient was compliant with her medications. Patient got along with peers and staff. The objective signs of depression and anxiety have been improved. She denies any suicidal ideation, not made any hopelessness/helplessness statements for more than 2 days prior to discharge. Maximum hospitalization benefit was reached and subsequently discharge was planned, and patient is appropriate to continue treatment on an outpatient basis. On the day of discharge the patient was able to create an appropriate safety plan and denies any side effect of medications. Discussion was held about need to stop use of alcohol , including its effects on mood, interaction with psychiatric medications, and its role in events leading up to admission. Patient is in the contemplative stage of a change. Medical: Patient continued the medical management of her medical conditions. Patient will continued managing her medical condition as per her outpatient PCP including Metformin for PCO and omeprazole/ pantoprazole for GERD. Patient was educated about lab results for TG which was elevated and need to follow up with her PCP after discharge. Patient was educated about smoking cessation and a prescription for nicotine replacement therapy was given at time of discharge. Assessment: Assessment at the day of discharge: The patient was seen at the day of discharge. Patient denies any sleep or appetite disturbances, denies feeling hopeless, worthless or helpless. Also, patient denies any other depressive or manic symptoms. Patient denies any psychotic symptoms. Patient denies suicidal or homicidal thoughts, intention or plans. Nurses and therapist reported patient is psychiatrically stable, and agreed to discharge plan. Mental status examination on discharge: Appearance: The patient appears stated age, adequately groomed and dressed, no specific features. Gait/posture: Normal gait, Normal arm swinging: No abnormal movements. Attitude and behavior: engaged, cooperative, eye contact. Motor activity: Normal psychomotor activity Speech: Normal rate, tone. Mood: "good" Affect: Constricted Thought form: goal-directed, linear, coherent. Thought content: Non-delusional, denies suicidal thoughts, denies homicidal thoughts, denies intentions or plans. Perception: Denies any auditory or visual hallucinations Attention: No impairment. Orientation: Patient patient was fully oriented to time place person and situation. Insight: Patient has fair insight about her psychiatric disorder. Judgment: Patient has fair judgment about her psychiatric treatment. Discharge diagnoses: Unspecified depressive disorder. Rule out generalized anxiety disorder. Alcohol use disorder, severe. Rule out alcohol withdrawal. Health Concerns: Activity: as tolerated Diet: Regular. Educated about managing weight, portions, and healthy life style. Special Instructions: Labs to be completed after discharge: As clinically indicated by outpatient psychiatrist and PCP. Discharge checklist for suicide and violence to determine stability: Safety plan was discussed with the patient. Patient denies any current suicidal/ homicidal or violent ideation/plan/ intent. Patient has ability to address stressors/emotions. Patient understands and is comfortable with discharge plan. Outpatient appointments is [facility] Emergency number (911, crisis number) provided to the patient. Avoid the use of street drugs and alcohol. Take all medications as prescribed. When you are in need of refills please contact your medical provider and/or outpatient psychiatrist to have this done. Please go to scheduled outpatient appointment for aftercare. If symptoms return or become worse call the crisis line at and/or go to the nearest emergency room for an evaluation. Pertinent Studies: Laboratory Tests Range/Units 03/01/19 03/01/19 03/03/19 02:46 02:46 09:[address] Glu mg/dL 97 Hemoglobin A1c (4.0-6.0) % 5.0 Total Bilirubin (0.2-1.3) mg/dL 1.2 Conjugated Bilirubin (0.0-0.3) mg/dL 0.0 Unconjugated Bilirubin (0.0-1.1) mg/dL 0.9 Delta Bilirubin (0.0-0.2) mg/dL 0.3 H AST (14-36) U/L 87 H ALT (4-34) U/L 51 H Alkaline Phosphatase (38-126) U/L 75 Total Protein (6.3-8.2) g/dL 7.5 Albumin (3.5-5.0) g/dL 4.4 Triglycerides (<150) mg/dL 558 H Cholesterol (<200) mg/dL 164 LDL Cholesterol, Calc (0-99) mg/dL HDL Cholesterol (40-60) mg/dL 48 TSH (0.465-4.680) mIU/L 0.496 Procedures: Plan: Patient will continue follow-up at-. As per discharge plan Continue the following medications: As per discharge plan Patient Condition at Discharge: Stable Patient will be discharge to home Patient Condition at Discharge: Stable Plan - Discharge Summary New Discharge Prescriptions: New diphenhydrAMINE [Benadryl] 50 mg PO HS #30 cap Nicotine 14Mg/24Hr Patch [Habitrol] 1 patch TRANSDERM DAILY #30 patch Vortioxetine Hydrobromide [Trintellix] 10 mg PO DAILY #30 tablet hydrOXYzine PAMOATE [Vistaril] 25 mg PO QID PRN #120 cap PRN Reason: Anxiety Continue clonazePAM [KlonoPIN] 1 mg PO TID Ergocalciferol [Vitamin D2 (DRISDOL)] 50,000 unit PO Q7D Pantoprazole [Protonix] 40 mg PO DAILY Omeprazole 20 mg PO DAILY metFORMIN HCL ER [Glucophage Xr] 500 mg PO BID Estarylla 0.25mg-35mcg 1 tab PO DAILY Melatonin 10 mg PO HS #30 tab Discontinued Escitalopram [Lexapro] 10 mg PO DAILY Discharge Medication List Ergocalciferol [Vitamin D2 (DRISDOL)] 50,000 unit PO Q7D 10/20/18 [History] clonazePAM [KlonoPIN] 1 mg PO TID 10/20/18 [History] Estarylla 0.25mg-35mcg 1 tab PO DAILY 03/01/19 [History] Omeprazole 20 mg PO DAILY 03/01/19 [History] Pantoprazole [Protonix] 40 mg PO DAILY 03/01/19 [History] metFORMIN HCL ER [Glucophage Xr] 500 mg PO BID 03/01/19 [History] Melatonin 10 mg PO HS #30 tab 03/03/19 [Rx] Nicotine 14Mg/24Hr Patch [Habitrol] 1 patch TRANSDERM DAILY #30 patch 03/03/19 [Rx] Vortioxetine Hydrobromide [Trintellix] 10 mg PO DAILY #30 tablet 03/03/19 [Rx] diphenhydrAMINE [Benadryl] 50 mg PO HS #30 cap 03/03/19 [Rx] hydrOXYzine PAMOATE [Vistaril] 25 mg PO QID PRN #120 cap 03/03/19 [Rx] Follow up Appointment(s)/Referral(s): [facility]Outside[facility] - 03/14/19 10:30 am ([facility]) Discharge Disposition: HOME SELF-CARE
[2019-03-03] MEDS: ACETAMINOPHEN TAB 325 MG TAB PO PRN (13:05)
== END 2019-03-03 14:45 | disposition home or self-care (01) | DRG 881 ==
LOC: 3MHU 16:31
PROVIDERS: ADMIT Psychiatry & Neurology Psychiatry; ATTEND Psychiatry & Neurology Psychiatry
DX: F32.9 Major depressive disorder, single episode, unspecified (principal); R45.851 Suicidal ideations; F10.239 Alcohol dependence with withdrawal, unspecified; F41.0 Panic disorder [episodic paroxysmal anxiety]; G47.00 Insomnia, unspecified; F10.229 Alcohol dependence with intoxication, unspecified; Z71.6 Tobacco abuse counseling; F17.210 Nicotine dependence, cigarettes, uncomplicated; K21.9 Gastro-esophageal reflux disease without esophagitis; M32.9 Systemic lupus erythematosus, unspecified; Z79.84 Long term (current) use of oral hypoglycemic drugs; Z79.899 Other long term (current) drug therapy; Z87.440 Personal history of urinary (tract) infections; F11.11 Opioid abuse, in remission; R94.5 Abnormal results of liver function studies; E28.2 Polycystic ovarian syndrome
CPT/HCPCS: 80061; 80076; 83036; 84443

== ENCOUNTER 2020-08-26 08:57 | Inpatient (IN) | payer OTHER ==
[2020-08-26] MEDS ORDERED: SODIUM CHLORIDE 0.9% 1,000 ML IV STA (09:14)
[2020-08-26] MEDS ORDERED: MORPHINE SULFATE 4 MG/ML SYRINGE IV STA (09:14)
[2020-08-26] MEDS ORDERED: ONDANSETRON 4 MG/2 ML VIAL IVP STA (09:14)
[2020-08-26] MEDS ORDERED: HYDROmorphone 1 MG/ML 1 ML SYRINGE IVP STA ×2 (09:23→11:03)
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
[2020-08-26 09:52] LABS: Basophils # (A) 0.1 k/uL (0-0.2); Basophils % (A) 1 %; Eosinophils # (A) 0.2 k/uL (0-0.7); Eosinophils % (A) 2 %; HCT 38.6 % (34.0-46.0); HGB 13.2 gm/dL (11.4-16.0); Lymphocytes # (A) 1.3 k/uL (1.0-4.8); Lymphocytes % (A) 14 %; MCHC 34.2 g/dL (31.0-37.0); MCV 96.5 fL (80.0-100.0); Mean Platelet Volume 6.7; Monocytes # (A) 0.4 k/uL (0-1.0); Monocytes % (A) 4 %; Neutrophils # (A) 7.3 k/uL (1.3-7.7); Neutrophils % (A) 78 %; Platelet Count 433 k/uL (150-450); WBC 9.3 k/uL (3.8-10.6)
[2020-08-26 09:56] LABS: Appearance,Urine Clear (Clear); Bacteria,Urine Occasional /hpf; Bilirubin,Urine Negative (Negative); Blood,Urine Negative (Negative); Color,Urine Yellow; Glucose,Urine (UA) Negative (Negative); Ketones,Urine Trace (Negative); Leukocyte Esterase,Urine Small (Negative); Nitrite,Urine Positive (Negative); Protein,Urine Trace (Negative); RBC,Urine 2 /hpf (0-5); Squamous Epithelial Cell,Urine 2 /hpf (0-4); Urobilinogen,Urine <2.0 mg/dL (<2.0); WBC,Urine 12 /hpf (0-5)
[2020-08-26 10:05] LABS: ALT 40 U/L (4-34); AST 67 U/L (14-36); African American GFR (CKD) >90 (>60 ml/min/1.73 sqM); Albumin 4.2 g/dL (3.5-5.0); Alkaline Phosphatase 90 U/L (38-126); Amylase 117 U/L (30-110); Anion Gap 10 mmol/L; Blood Urea Nitrogen 8 mg/dL (7-17); Carbon Dioxide 22 mmol/L (22-30); Chloride 107 mmol/L (98-107); Glucose 116 mg/dL (74-99); Lipase 662 U/L (23-300); Non-African American GFR(CKD) >90 (>60 ml/min/1.73 sqM); Partial Thromboplastin Time 24.2 sec (22.0-30.0); Potassium 4.3 mmol/L (3.5-5.1); Prothrombin Time 10.6 sec (9.0-12.0); Sodium 139 mmol/L (137-145); Total Bilirubin 1.8 mg/dL (0.2-1.3); Total Protein 7.4 g/dL (6.3-8.2)
[2020-08-26] MEDS ORDERED: cefTRIAXone IN SWFI 1,000 MG/10 ML SYRINGE IVP STA (10:14)
[2020-08-26] MEDS ORDERED: KETOROLAC 15 MG/ML 1 ML VIAL IVP STA (10:14)
--- NOTE | 2020-08-26 10:52 | XR ---
EXAMINATION TYPE: XR KUB DATE OF EXAM: 08/26/2020 Comparison: Correlation CT 08/21/2017 Clinical History: 35-year-old female abdominal pain Findings: There is some mild patchy density in the periphery of both lung bases. No evidence for free intraperitoneal air. No dilated small bowel or air-fluid levels. No significant stool burden. Scattered air is present thr oughout the colon. Faint pelvic phleboliths. Old healed fracture deformities of the right superior and inferior pubic rami. Impression: 1. Mild patchy density in the periphery of both lung bases, either mild or early infiltrates or areas of atelectasis. Clinically correlate. 2. No evidence for free air or bowel obstruction. No significant stool burden. 3. Old healed fracture deformities of the right superior and inferior pubic rami.
[2020-08-26 11:05] LABS: Amphetamine Screen,Urine Not Detected (NotDetected); Barbiturate Screen,Urine Not Detected (NotDetected); Benzodiazepines Screen,Urine Not Detected (NotDetected); Cocaine Screen,Urine Not Detected (NotDetected); Methadone Screen, Urine Not Detected (NotDetected); Opiate Screen,Urine Detected (NotDetected); Oxycodone Screen, Urine Not Detected (NotDetected); Phencyclidine Screen,Urine Not Detected (NotDetected); Tricyclic Antidepressant,Urine Not Detected (NotDetected); Urn Cannabinoid Scrn Not Detected (NotDetected)
[2020-08-26] MEDS ORDERED: diphenhydrAMINE 50 MG/ML 1 ML VIAL IVP STA (11:09)
[2020-08-26] MEDS ORDERED: ONDANSETRON 4 MG/2 ML VIAL IVP PRN (11:22)
[2020-08-26] MEDS ORDERED: MORPHINE SULFATE 4 MG/ML SYRINGE IV PRN (11:22)
[2020-08-26] MEDS ORDERED: NALOXONE 0.4 MG/ML 1 ML VIAL IV PRN (11:22)
[2020-08-26] MEDS: SODIUM CHLORIDE 0.9% 1,000 ML IV SCH ×2 (12:39→22:00)
[2020-08-26] MEDS: HYDROmorphone 0.5 MG/0.5 ML SYRINGE IVP PRN ×2 (13:47→17:58)
[2020-08-26] MEDS: KETOROLAC 15 MG/ML 1 ML VIAL IVP PRN ×2 (15:15→21:59)
[2020-08-26] MEDS ORDERED: ACETAMINOPHEN IV (For NPO) 1,000 MG in EMPTY BAG 1 BAG IVPB PRN (15:47)
[2020-08-26] MEDS ORDERED: LOPERAMIDE 2 MG CAP PO PRN (19:42)
[2020-08-26] MEDS ORDERED: FLUTICASONE 50MCG/SPRAY NASAL 16GM EA NOSTRIL PRN (19:42)
[2020-08-26] MEDS ORDERED: BACLOFEN 10 MG TAB PO PRN (19:42)
[2020-08-26] MEDS ORDERED: Acetaminophen-Codeine 300-30mg TAB PO PRN (19:42)
[2020-08-26] MEDS ORDERED: hydrOXYzine pamoate 25 MG CAP PO PRN (19:42)
[2020-08-26] MEDS: HYDROmorphone 1 MG/ML 1 ML SYRINGE IVP PRN (20:32)
[2020-08-26] MEDS: PANTOPRAZOLE 40 MG/10 ML VIAL IVP SCH (20:33)
[2020-08-26] MEDS: HEPARIN SODIUM,PORCINE/PF 5,000 UNIT/0.5 ML SYRINGE SQ SCH (20:33)
[2020-08-26 20:45] LABS: ALT 30 U/L (4-34); AST 49 U/L (14-36); African American GFR (CKD) >90 (>60 ml/min/1.73 sqM); Albumin 3.6 g/dL (3.5-5.0); Albumin/Globulin Ratio 1.2; Alkaline Phosphatase 79 U/L (38-126); Amylase 135 U/L (30-110); Anion Gap 9 mmol/L; Blood Urea Nitrogen 10 mg/dL (7-17); Carbon Dioxide 21 mmol/L (22-30); Chloride 107 mmol/L (98-107); Glucose 168 mg/dL (74-99); Lipase 960 U/L (23-300); Non-African American GFR(CKD) >90 (>60 ml/min/1.73 sqM); Potassium 3.8 mmol/L (3.5-5.1); Sodium 137 mmol/L (137-145); Total Bilirubin 1.1 mg/dL (0.2-1.3); Total Protein 6.6 g/dL (6.3-8.2)
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
[2020-08-26] MEDS: MEROPENEM 2 GM in SODIUM CHLORIDE 0.9% 100 ML IVPB SCH (21:59)
[2020-08-26] MEDS: LORazepam 2 MG/ML INJ IV PRN (22:14)
[2020-08-27] MEDS: HYDROmorphone 1 MG/ML 1 ML SYRINGE IVP PRN ×8 (00:10→22:47)
[2020-08-27] MEDS: clonazePAM 1 MG TAB PO PRN (00:18)
[2020-08-27] MEDS: LORazepam 2 MG/ML INJ IV PRN ×3 (04:22→21:40)
[2020-08-27] MEDS: MEROPENEM 2 GM in SODIUM CHLORIDE 0.9% 100 ML IVPB SCH ×3 (04:27→21:26)
[2020-08-27] MEDS: KETOROLAC 15 MG/ML 1 ML VIAL IVP PRN ×3 (05:29→20:25)
[2020-08-27 06:06] LABS: Basophils # (A) 0.1 k/uL (0-0.2); Basophils % (A) 1 %; Eosinophils # (A) 0.2 k/uL (0-0.7); Eosinophils % (A) 4 %; HCT 38.5 % (34.0-46.0); HGB 12.3 gm/dL (11.4-16.0); Lymphocytes # (A) 1.7 k/uL (1.0-4.8); Lymphocytes % (A) 30 %; MCH 32.8 pg (25.0-35.0); MCHC 32.1 g/dL (31.0-37.0); Macrocytosis Slight; Monocytes # (A) 0.5 k/uL (0-1.0); Monocytes % (A) 9 %; Neutrophils % (A) 54 %; Platelet Count 313 k/uL (150-450); RBC 3.76 m/uL (3.80-5.40); RDW 13.8 % (11.5-15.5); WBC 5.6 k/uL (3.8-10.6)
[2020-08-27 06:20] LABS: MCV 102.4 fL (80.0-100.0)
[2020-08-27] MEDS: SODIUM CHLORIDE 0.9% 1,000 ML IV SCH ×2 (07:07→21:27)
[2020-08-27] MEDS: PANTOPRAZOLE 40 MG/10 ML VIAL IVP SCH (07:07)
[2020-08-27] MEDS: CHOLECALCIFEROL 25 MCG (1000 IU) TABLET PO SCH (07:07)
[2020-08-27] MEDS: SPIRONOLACTONE 25 MG TAB PO SCH (07:07)
[2020-08-27] MEDS: HEPARIN SODIUM,PORCINE/PF 5,000 UNIT/0.5 ML SYRINGE SQ SCH ×2 (07:08→21:26)
[2020-08-27] MEDS ORDERED: LORazepam 2 MG/ML INJ ONE (11:42)
[2020-08-27] MEDS: IOPAMIDOL CONTRAST (ORAL USE) VIAL PO PRN ×2 (12:42→13:36)
[2020-08-27] MEDS: FOLIC ACID 1 MG TAB PO SCH (12:44)
--- NOTE | 2020-08-27 14:39 | CT ---
EXAMINATION TYPE: CT abdomen pelvis wo con DATE OF EXAM: 08/27/2020 COMPARISON: 08/21/2017 HISTORY: Pancreatitis, abdominal pain. CT DLP: 904.60 mGycm Examination of the solid and hollow viscera is limited given the lack of contrast. FINDINGS: LUNG BASES: Basilar infiltrates and linear atelectasis noted. LIVER/GB: The gallbladder is unremarkable. No space-occupying hepatic lesion. PANCREAS: Mild peripancreatic stranding suggested. Correlate with amylase and lipase to exclude acute pancreatitis. A couple focal calcifications within the pancreatic head may reflect changes of early chronic pancreatitis. SPLEEN: No evidence for splenomegaly. No intrasplenic lesions seen. ADRENALS: No adrenal nodules identified. No evidence for thickening. KIDNEYS: No evidence for renal mass. No nephrolithiasis. No hydronephrosis. BOWEL: Appendix has a normal appearance. No evidence of bowel obstruction. No inflammatory process. Lymph nodes: No evidence for adenopathy greater than 1 cm. Abdominal aorta: Atheromatous changes seen. No evidence for aneurysm. Genital organs: No significant abnormality. Other: No significant abnormality. IMPRESSION: 1.Mild peripancreatic stranding suggested. Correlate with amylase and lipase to exclude acute pancrea titis. 2.Basilar infiltrates and linear atelectasis noted.
[2020-08-27 17:10] LABS: ALT 30 U/L (4-34); AST 54 U/L (14-36); African American GFR (CKD) >90 (>60 ml/min/1.73 sqM); Albumin 3.4 g/dL (3.5-5.0); Albumin/Globulin Ratio 1.1; Alkaline Phosphatase 70 U/L (38-126); Anion Gap 9 mmol/L; Blood Urea Nitrogen 11 mg/dL (7-17); Calcium 9.2 mg/dL (8.4-10.2); Carbon Dioxide 21 mmol/L (22-30); Chloride 109 mmol/L (98-107); Globulin 3.2 g/dL; Glucose 116 mg/dL (74-99); Lipase 461 U/L (23-300); Non-African American GFR(CKD) >90 (>60 ml/min/1.73 sqM); Sodium 139 mmol/L (137-145); Total Bilirubin 0.9 mg/dL (0.2-1.3); Total Protein 6.6 g/dL (6.3-8.2)
[2020-08-27 17:14] LABS: Potassium 4.2 mmol/L (3.5-5.1)
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
[2020-08-27] MEDS: PANTOPRAZOLE 40 MG TABLET PO SCH (21:26)
[2020-08-28] MEDS: HYDROmorphone 1 MG/ML 1 ML SYRINGE IVP PRN ×3 (02:32→08:42)
[2020-08-28] MEDS: KETOROLAC 15 MG/ML 1 ML VIAL IVP PRN ×2 (02:52→11:45)
[2020-08-28] MEDS: MEROPENEM 2 GM in SODIUM CHLORIDE 0.9% 100 ML IVPB SCH (04:58)
[2020-08-28] MEDS: SODIUM CHLORIDE 0.9% 1,000 ML IV SCH ×2 (05:39→12:56)
[2020-08-28 05:59] LABS: Basophils # (A) 0.1 k/uL (0-0.2); Basophils % (A) 1 %; Eosinophils # (A) 0.2 k/uL (0-0.7); Eosinophils % (A) 3 %; HCT 37.7 % (34.0-46.0); HGB 12.2 gm/dL (11.4-16.0); Lymphocytes # (A) 1.8 k/uL (1.0-4.8); Lymphocytes % (A) 27 %; MCH 32.8 pg (25.0-35.0); MCHC 32.4 g/dL (31.0-37.0); MCV 101.1 fL (80.0-100.0); Macrocytosis Slight; Mean Platelet Volume 6.9; Monocytes # (A) 0.5 k/uL (0-1.0); Monocytes % (A) 8 %; Neutrophils # (A) 3.9 k/uL (1.3-7.7); Neutrophils % (A) 59 %; Platelet Count 348 k/uL (150-450); RBC 3.73 m/uL (3.80-5.40); RDW 13.7 % (11.5-15.5); WBC 6.5 k/uL (3.8-10.6)
[2020-08-28] MEDS: HYDROcodone/APAP 5-325MG 1 EACH TAB PO PRN ×2 (07:28→13:46)
[2020-08-28] MEDS: CHOLECALCIFEROL 25 MCG (1000 IU) TABLET PO SCH (07:29)
[2020-08-28] MEDS: SPIRONOLACTONE 25 MG TAB PO SCH (07:30)
[2020-08-28] MEDS: PANTOPRAZOLE 40 MG TABLET PO SCH (07:30)
[2020-08-28] MEDS: HEPARIN SODIUM,PORCINE/PF 5,000 UNIT/0.5 ML SYRINGE SQ SCH (07:40)
[2020-08-28 09:06] LABS: ALT 27 U/L (4-34); AST 46 U/L (14-36); African American GFR (CKD) >90 (>60 ml/min/1.73 sqM); Albumin 3.5 g/dL (3.5-5.0); Albumin/Globulin Ratio 1.2; Alkaline Phosphatase 71 U/L (38-126); Amylase 69 U/L (30-110); Anion Gap 7 mmol/L; Blood Urea Nitrogen 9 mg/dL (7-17); Calcium 9.3 mg/dL (8.4-10.2); Carbon Dioxide 22 mmol/L (22-30); Chloride 110 mmol/L (98-107); Globulin 2.9 g/dL; Glucose 131 mg/dL (74-99); Lipase 520 U/L (23-300); Non-African American GFR(CKD) >90 (>60 ml/min/1.73 sqM); Potassium 4.6 mmol/L (3.5-5.1); Sodium 139 mmol/L (137-145); Total Bilirubin 0.6 mg/dL (0.2-1.3); Total Protein 6.4 g/dL (6.3-8.2)
[2020-08-28] MEDS: clonazePAM 1 MG TAB PO PRN (09:47)
[2020-08-28 11:28] VITALS: BP 106/66; PULSE 72; RESP 20; TEMP 98.6
[2020-08-28] MEDS: FOLIC ACID 1 MG TAB PO SCH (11:45)
[2020-08-28] MEDS ORDERED: FLUCONAZOLE 100 MG TAB PO ONE (14:00)
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
--- NOTE | 2020-08-28 17:43 | P.DS ---
Providers Date of admission: 08/26/20 11:20 Attending physician: Hero Pedersen Consults: 08/27/20 15:25 Consult Physician Routine Consulting Provider: Cornelio Wing Consult Reason/Comments: pancreatitis Do you want consulting provider notified?: Yes Primary care physician: Jude Shamir [facility] Course: 35-year-old the female was admitted for a pancreatitis patient had multiple hospitalizations for pancreatitis. Patient lipase is only minimally elevated. Patient does have some fast stranding on the CT although that was minimal. Patient will not require any meropenem this will be discontinued. Patient urine did show E. coli pansensitive unsure whether patient had symptoms on admission. We'll give 1 more dose of Rocephin thereby patient will complete 3 days of antibiotic and patient will be discharged today patient is able to tolerate full liquid diet. Patient was evaluated by gastroenterology no further recommendations from their perspective recommended follow-up as an outpatient. Patient is on 2 pump inhibitors one of which will be discontinued. PHYSICAL EXAMINATION: GENERAL: The patient is alert and oriented x3, not in any acute distress. Well developed, well nourished. HEENT: Pupils are round and equally reacting to light. EOMI. No scleral icterus. No conjunctival pallor. Normocephalic, atraumatic. No pharyngeal erythema. No thyromegaly. CARDIOVASCULAR: S1 and S2 present. No murmurs, rubs, or gallops. PULMONARY: Chest is clear to auscultation, no wheezing or crackles. ABDOMEN: Soft, nontender, nondistended, normoactive bowel sounds. No palpable organomegaly. MUSCULOSKELETAL: No joint swelling or deformity. EXTREMITIES: No cyanosis, clubbing, or pedal edema. NEUROLOGICAL: Gross neurological examination did not reveal any focal deficits. SKIN: No rashes. -Abdominal pain with mildly elevated lipase, low suspicion for pancreatitis -Gastroesophageal reflux disease -Possibility of urinary tract infection -Hiatal hernia -Anxiety disorder Patient Condition at Discharge: Stable Plan - Discharge Summary Discharge Rx Participant: No New Discharge Prescriptions: Continue clonazePAM [KlonoPIN] 1 mg PO TID PRN PRN Reason: Anxiety Pantoprazole [Protonix] 40 mg PO DAILY Vortioxetine Hydrobromide [Trintellix] 10 mg PO DAILY #30 tablet hydrOXYzine pamoate [Vistaril] 25 mg PO QID PRN #120 cap PRN Reason: Anxiety Folic Acid (Unknown Dose) 1 tab PO DAILY Cholecalciferol (Vitamin D3) [Vitamin D3 (3000 Iu)] 75 mcg PO DAILY Baclofen [Lioresal] 5 - 10 mg PO TID PRN PRN Reason: Muscle Spasm Fluticasone Nasal [place] [Flonase Nasal [place]] 1 spray EA NOSTRIL DAILY PRN PRN Reason: Congestion Loperamide HCl [Loperamide] 4 mg PO QID PRN PRN Reason: Diarrhea Spironolactone [Aldactone] 25 mg PO DAILY Acetaminophen with Codeine [Tylenol w/Codeine #4 Tablet] 1 tab PO Q8H PRN PRN Reason: Pain Discontinued Omeprazole 20 mg PO DAILY Discharge Medication List clonazePAM [KlonoPIN] 1 mg PO TID PRN 10/20/18 [History] Pantoprazole [Protonix] 40 mg PO DAILY 03/01/19 [History] Vortioxetine Hydrobromide [Trintellix] 10 mg PO DAILY #30 tablet 03/03/19 [Rx] hydrOXYzine pamoate [Vistaril] 25 mg PO QID PRN #120 cap 03/03/19 [Rx] Acetaminophen with Codeine [Tylenol w/Codeine #4 Tablet] 1 tab PO Q8H PRN 08/26/20 [History] Baclofen [Lioresal] 5 - 10 mg PO TID PRN 08/26/20 [History] Cholecalciferol (Vitamin D3) [Vitamin D3 (3000 Iu)] 75 mcg PO DAILY 08/26/20 [Hi story] Fluticasone Nasal [place] [Flonase Nasal [place]] 1 spray EA NOSTRIL DAILY PRN 08/26/20 [History] Folic Acid (Unknown Dose) 1 tab PO DAILY 08/26/20 [History] Loperamide HCl [Loperamide] 4 mg PO QID PRN 08/26/20 [History] Spironolactone [Aldactone] 25 mg PO DAILY 08/26/20 [History] Follow up Appointment(s)/Referral(s): Jude Barksdale DO [Primary Care Provider] - 3 Days Sharon Rios NPC [Nurse Practitioner] - 1 Week Patient Instructions/Handouts: Pancreatitis (DC), Urinary Tract Infection in Women (DC) Discharge Disposition: HOME SELF-CARE
--- NOTE | 2020-09-17 10:06 | CDI ---
Documentation Clarification Form Date: 09/17/2020 09:55:00 AM From: Karin Borrero Admit Date: 08/26/2020 11:20:00 AM Patient Name: Chantel Delgado Visit Number: [id number] Discharge Date: 08/28/2020 06:16:00 PM ATTENTION: The Clinical Documentation Specialists (CDI) and [facility] Coding Staff appreciate your assistance in clarifying documentation. Please respond to the clarification below the line at the bottom and electronically sign. The CDI & [facility] Coding staff will review the response and follow-up if needed. Please note: Queries are made part of the Legal Health Record. If you have any questions, please contact the author of this message via ITS. Dr. Hero Pedersen Pancreatitis is documented throughout the chart. PER [facility] "suspicion for pancreatitis is low". Please clarify if patient had pancreatitis or was it ruled out. History/risk factors: Clinical Indicators: Radiology: mild peripancreatic stranding Amylase/Lipase: amylase 117 and Lipase 662-960 Treatment: IV fluids clear liquid diet advanced pain medications Please clarify if the patient had acute pancreatitis or was it ruled out. Acuity [ ] Acute pancreatitis [ ] Acute on Chronic pancreatitis [ ] Chronic pancreatitis [ ] Pancreatitis ruled out [ ] Other, please specify ____ [ ] Unable to determine Etiology [ ] Alcohol induced pancreatitis [ ] Biliary pancreatitis [ ] Cytomegaloviral pancreatitis [ ] Drug induced pancreatitis [ ] Gallstone pancreatitis [ ] Idiopathic pancreatitis [ ] Other, please specify [ ] Unable to determine Acute pancreatitis Unable to determine MTDD
--- NOTE | 2020-09-17 10:16 | CDI ---
Documentation Clarification Form Date: 09/17/2020 10:06:00 AM From: Karin Borrero Admit Date: 08/26/2020 11:20:00 AM Patient Name: Chantel Delgado Visit Number: [id number] Discharge Date: 08/28/2020 06:16:00 PM ATTENTION: The Clinical Documentation Specialists (CDI) and [facility] Coding Staff appreciate your assistance in clarifying documentation. Please respond to the clarification below the line at the bottom and electronically sign. The CDI & [facility] Coding staff will review the response and follow-up if needed. Please note: Queries are made part of the Legal Health Record. If you have any questions, please contact the author of this message via ITS. Dr. Hero Pedersen Documentation of possible sepsis due to pancreatitis is in the H and P and progress notes. Sepsis is not carried to [facility]. Please clarify if patient had sepsis or was it ruled out. History/Risk Factors: Patient with UTI Clinical Indicators: WBC: 9.3 Lactic acid: 1.0 Vitals signs: 98.2 F, - 102.2F, 102, 18, 119/85, 96% RA Treatment: IV bolus, IV antibiotics positive UTI Antibiotics: broad spectrum In your professional opinion, please clarify if these findings signify one of the following conditions: [ ] Sepsis POA [ ] Sepsis, Not POA [ ] Sepsis ruled out [ ] Severe Sepsis with organ failure [ ] Septic Shock [ ] SIRS, without underlying infectious process [ ] Other, please specify [ ] Unable to determine SIRS Criteria: 2 or more of the following may indicate SIRS -Temperature < 96.8F (36C) or > 101.0F (38.3C) -Heart Rate > 90 bpm -Respiratory Rate > 20 breaths/min or PaCO2 < 32 mmHg -White Blood Cell Count > 12,000 or < 4,000 cells/mm3 or > 10% bands Unable to determine MTDD
== END 2020-08-28 18:16 | disposition home or self-care (01) | DRG 689 ==
LOC: EC 08:57 → 5NMEDONC 11:20
PROVIDERS: ADMIT Hospitalist; ATTEND Hospitalist
DX: N39.0 Urinary tract infection, site not specified (principal); K85.90 Acute pancreatitis without necrosis or infection, unspecified; J98.11 Atelectasis; B17.9 Acute viral hepatitis, unspecified; F32.9 Major depressive disorder, single episode, unspecified; B96.20 Unspecified Escherichia coli [E. coli] as the cause of diseases classified elsewhere; F11.11 Opioid abuse, in remission; E66.9 Obesity, unspecified; F41.9 Anxiety disorder, unspecified; F17.210 Nicotine dependence, cigarettes, uncomplicated; K21.9 Gastro-esophageal reflux disease without esophagitis; K44.9 Diaphragmatic hernia without obstruction or gangrene; Z87.19 Personal history of other diseases of the digestive system; Z87.11 Personal history of peptic ulcer disease; Z79.899 Other long term (current) drug therapy; Z20.822 Contact with and (suspected) exposure to COVID-19; Z68.31 Body mass index [BMI] 31.0-31.9, adult; Z81.8 Family history of other mental and behavioral disorders; Z82.49 Family history of ischemic heart disease and other diseases of the circulatory system; Z82.0 Family history of epilepsy and other diseases of the nervous system; Z88.5 Allergy status to narcotic agent
CPT/HCPCS: 36415; 74018; 74176; 80053; 80306; 81001; 81025; 82140; 82150; 83605; 83690; 84484; 85025; 85610; 85730; 87040; 87077; 87086; 87186; 87635; 93005; 96361; 96374; 96375; 96376; 99285

== ENCOUNTER 2020-09-11 05:02 | Inpatient (IN) | payer OTHER ==
[2020-09-11] MEDS ORDERED: ACETAMINOPHEN IV (For NPO) 1,000 MG in EMPTY BAG 1 BAG IVPB STA (05:31)
[2020-09-11] MEDS ORDERED: SODIUM CHLORIDE 0.9% 1,000 ML IV STA ×3 (05:31→07:20)
[2020-09-11] MEDS ORDERED: IBUPROFEN IV 800 MG in SODIUM CHLORIDE 0.9% 250 ML IV ONE (05:31)
[2020-09-11] MEDS ORDERED: SODIUM CHLORIDE 0.9% 500 ML 500 ML IV STA (05:31)
[2020-09-11] MEDS ORDERED: MORPHINE SULFATE 4 MG/ML SYRINGE IVP STA (05:31)
[2020-09-11] MEDS ORDERED: HYDROmorphone 1 MG/ML 1 ML SYRINGE IVP STA ×2 (05:32→07:16)
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
[2020-09-11] MEDS ORDERED: ONDANSETRON 4 MG/2 ML VIAL IVP STA (05:52)
[2020-09-11] MEDS ORDERED: LORazepam 2 MG/ML INJ IV STA (05:52)
[2020-09-11 06:11] LABS: Basophils # (A) 0.1 k/uL (0-0.2); Basophils % (A) 1 %; Eosinophils # (A) 0.1 k/uL (0-0.7); Eosinophils % (A) 1 %; HCT 42.5 % (34.0-46.0); HGB 14.2 gm/dL (11.4-16.0); Lymphocytes # (A) 1.1 k/uL (1.0-4.8); Lymphocytes % (A) 8 %; MCH 32.7 pg (25.0-35.0); MCHC 33.4 g/dL (31.0-37.0); MCV 97.8 fL (80.0-100.0); Mean Platelet Volume 7.2; Monocytes # (A) 0.7 k/uL (0-1.0); Monocytes % (A) 5 %; Neutrophils # (A) 12.3 k/uL (1.3-7.7); Neutrophils % (A) 85 %; Platelet Count 429 k/uL (150-450); RBC 4.35 m/uL (3.80-5.40); RDW 13.5 % (11.5-15.5); WBC 14.5 k/uL (3.8-10.6)
[2020-09-11 06:13] LABS: AST 57 U/L (14-36); African American GFR (CKD) >90 (>60 ml/min/1.73 sqM); Albumin 4.2 g/dL (3.5-5.0); Alcohol <10 mg/dL; Alkaline Phosphatase 109 U/L (38-126); Anion Gap 14 mmol/L; Blood Urea Nitrogen 3 mg/dL (7-17); C Reactive Protein 4.2 mg/dL (<1.0); Calcium 9.4 mg/dL (8.4-10.2); Carbon Dioxide 19 mmol/L (22-30); Chloride 101 mmol/L (98-107); Creatine Kinase 40 U/L (30-135); Glucose 116 mg/dL (74-99); LDH 621 U/L (313-618); Magnesium 1.2 mg/dL (1.6-2.3); Non-African American GFR(CKD) >90 (>60 ml/min/1.73 sqM); Phosphorus 2.8 mg/dL (2.5-4.5); Potassium 4.7 mmol/L (3.5-5.1); Sodium 134 mmol/L (137-145); Total Bilirubin 1.3 mg/dL (0.2-1.3); Total Protein 7.7 g/dL (6.3-8.2)
[2020-09-11 06:19] LABS: Partial Thromboplastin Time 23.2 sec (22.0-30.0); Prothrombin Time 10.3 sec (9.0-12.0)
[2020-09-11 06:20] LABS: ALT 36 U/L (4-34)
--- NOTE | 2020-09-11 06:48 | XR ---
EXAMINATION TYPE: XR chest 2V DATE OF EXAM: 09/11/2020 COMPARISON: 08/21/2017 HISTORY: Abdominal pain TECHNIQUE: 2 views FINDINGS: Heart and mediastinum are normal. There is some increased linear density left lower lobe. T he other lung jimenez are clear. There are no hilar masses. Bony thorax is intact. IMPRESSION: There is some new mild atelectasis left lower lobe compared to old exam. Normal heart.
--- NOTE | 2020-09-11 07:04 | CT ---
EXAMINATION TYPE: CT abdomen pelvis w con DATE OF EXAM: 09/11/2020 HISTORY: Abdominal pain and fever CT DLP: 1329.1mGycm Automated Exposure Control for Dose Reduction was Utilized. CONTRAST: CT scan of the abdomen and pelvis is performed without oral but with IV Contrast, patient injected wi th 100 ml mL of Isovue 300. COMPARISON: CT abdomen and pelvis August 27, 2020 FINDINGS: LUNG BASES: Some scattered dependent and linear atelectasis improved from prior. LIVER/GB: Mild Hepatomegaly redemonstrated. Liver diffusely low density consistent with diffuse fatty infiltration. PANCREAS: No significant abnormality is seen currently. SPLEEN: No significant abnormality is seen. ADRENALS: No significant abnormality is seen. KIDNEYS: No significant abnormality is seen. BOWEL: Suboptimal evaluation without enteric contrast. No suspicious small or large bowel dilatation. Fairly moderately wall thickening throughout majority of colon. Normal-appearing appendix. No free a ir. No significant fat stranding. UTERUS/ADNEXA: No gross abnormality seen. LYMPH NODES: No greater than 1cm abdominal or pelvic lymph nodes are appreciated. OSSEOUS STRUCTURES: No significant abnormality is seen. OTHER: No significant additional abnormality is seen. IMPRESSION: New fairly moderate diffuse colonic wall thickening consistent with colitis. Consider inf ectious, inflammatory, and/or ischemic etiologies. Pseudomembranous colitis is in differential.
[2020-09-11] MEDS ORDERED: AMPICILLIN-SULBACTAM 3 GM in SODIUM CHLORIDE 0.9% 100 ML IVPB STA (07:12)
[2020-09-11] MEDS ORDERED: AZITHROMYCIN 500 MG in SODIUM CHLORIDE 0.9% 250 ML IVPB STA (07:12)
[2020-09-11] MEDS ORDERED: ONDANSETRON 4 MG/2 ML VIAL IVP PRN (07:16)
[2020-09-11] MEDS ORDERED: KETOROLAC 15 MG/ML 1 ML VIAL IVP STA (07:17)
[2020-09-11] MEDS ORDERED: PROCHLORPERAZINE INJ 10 MG/2 ML VIAL IVP PRN (07:17)
[2020-09-11] MEDS ORDERED: PROCHLORPERAZINE INJ 10 MG/2 ML VIAL IVP STA (07:17)
[2020-09-11] MEDS ORDERED: NALOXONE 0.4 MG/ML 1 ML VIAL IV PRN (07:23)
[2020-09-11] MEDS ORDERED: ACETAMINOPHEN TAB 325 MG TAB PO PRN (07:23)
[2020-09-11] MEDS ORDERED: LORazepam 2 MG/ML INJ IV PRN ×3 (07:24)
[2020-09-11] MEDS ORDERED: THIAMINE 100 MG/ML 2 ML VIAL IM STA (07:24)
[2020-09-11] MEDS: MAGNESIUM SULFATE-D5W PMX 1 GM in DEXTROSE/WATER 1 100ML.BAG IVPB SCH ×3 (07:43→11:23)
[2020-09-11 08:36] LABS: Appearance,Urine Cloudy (Clear); Bacteria,Urine Occasional /hpf; Bilirubin,Urine Negative (Negative); Blood,Urine Moderate (Negative); Color,Urine Yellow; Glucose,Urine (UA) Negative (Negative); Ketones,Urine Negative (Negative); Leukocyte Esterase,Urine Trace (Negative); Mucus,Urine Rare /hpf; Nitrite,Urine Negative (Negative); PH, Urine 8.5 (5.0-8.0); Protein,Urine Trace (Negative); RBC,Urine 2 /hpf (0-5); Squamous Epithelial Cell,Urine 44 /hpf (0-4); Urobilinogen,Urine <2.0 mg/dL (<2.0); WBC,Urine 1 /hpf (0-5)
[2020-09-11 09:17] LABS: Specific Gravity,Urine >1.050 (1.001-1.035)
[2020-09-11] MEDS: HYDROmorphone 1 MG/ML 1 ML SYRINGE IVP PRN ×3 (12:10→20:39)
[2020-09-11] MEDS: VANCOMYCIN 125 MG CAPSULE PO SCH ×3 (15:12→22:27)
[2020-09-11] MEDS: IBUPROFEN 400 MG TAB PO PRN (15:12)
[2020-09-11] MEDS: AMPICILLIN-SULBACTAM 3 GM in SODIUM CHLORIDE 0.9% 100 ML IVPB SCH (15:13)
[2020-09-11] MEDS: THIAMINE 100 MG TAB PO SCH (16:35)
[2020-09-11] MEDS ORDERED: MAGNESIUM SULFATE-D5W PMX 1 GM in DEXTROSE/WATER 1 100ML.BAG IVPB ONE (16:54)
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
[2020-09-11] MEDS: SODIUM CHLORIDE 0.9% 1,000 ML IV SCH (17:36)
[2020-09-12] MEDS: HYDROmorphone 1 MG/ML 1 ML SYRINGE IVP PRN ×7 (00:04→21:45)
[2020-09-12] MEDS: AMPICILLIN-SULBACTAM 3 GM in SODIUM CHLORIDE 0.9% 100 ML IVPB SCH ×3 (00:05→15:38)
[2020-09-12] MEDS: SODIUM CHLORIDE 0.9% 1,000 ML IV SCH ×4 (04:35→20:24)
[2020-09-12] MEDS: THIAMINE 100 MG TAB PO SCH ×2 (07:59→17:10)
[2020-09-12] MEDS: VANCOMYCIN 125 MG CAPSULE PO SCH ×4 (08:33→20:23)
[2020-09-12] MEDS: IBUPROFEN 400 MG TAB PO PRN (10:28)
[2020-09-12] MEDS: PANTOPRAZOLE 40 MG/10 ML VIAL IVP SCH ×2 (10:28→20:23)
[2020-09-12 11:36] LABS: Basophils # (A) 0.04 X 10*3/uL (0.00-0.10); Basophils % (A) 0.5 %; Eosinophils # (A) 0.11 X 10*3/uL (0.04-0.35); Eosinophils % (A) 1.4 %; HCT 35.3 % (37.2-46.3); HGB 11.4 g/dL (12.0-15.0); Lymphocytes # (A) 1.68 X 10*3/uL (0.90-5.00); Lymphocytes % (A) 21.6 %; MCH 32.8 pg (27.0-32.0); MCHC 32.3 g/dL (32.0-37.0); MCV 101.4 fL (80.0-97.0); Monocytes # (A) 0.67 X 10*3/uL (0.20-1.00); Monocytes % (A) 8.6 %; Neutrophils # (A) 5.23 X 10*3/uL (1.80-7.70); Neutrophils % (A) 67.5 %; Platelet Count 354 X 10*3/uL (140-440); RBC 3.48 X 10*6/uL (4.10-5.20); RDW 13.2 % (11.5-14.5); WBC 7.76 X 10*3/uL (4.50-10.00)
[2020-09-12 14:03] LABS: African American GFR (CKD) 144.3 (60.0-200.0); Albumin 3.2 g/dL (3.80-4.90); Albumin/Globulin Ratio 1.28 (1.60-3.17); Anion Gap 5.9 mmol/L (4.00-12.00); Calcium 8.1 mg/dL (8.7-10.3); Carbon Dioxide 21.1 mmol/L (21.6-31.8); Globulin 2.5 g/dL (1.6-3.3); Non-African American GFR(CKD) 124.5 (60.0-200.0); Potassium 4.1 mmol/L (3.5-5.5); Total Bilirubin 0.8 mg/dL (0.2-1.2); Total Protein 5.7 g/dL (6.2-8.2)
[2020-09-12] MEDS: HYDROmorphone 0.5 MG/0.5 ML SYRINGE IVP PRN ×3 (14:21→20:24)
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
[2020-09-12] MEDS: LACTOBACILLUS ACIDOPH & BULGAR 1 EACH PACKET PO SCH ×2 (15:38→20:23)
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
[2020-09-12] MEDS: diphenhydrAMINE 50 MG CAP PO PRN (21:53)
--- NOTE | 2020-09-12 22:51 | P.PN ---
Subjective Progress Note Date: 09/12/20 Principal diagnosis: Acute Colitis Ms. Delgado is a 35-year-old female with a past medical history of GERD, hiatal hernia, gastric ulcers, mortality, lack stent at age 16 years with bilateral pneumothorax/bilateral chest tubes, anxiety with depression coming into the hospital with a chief complaint of abdominal pain, nausea and vomiting. Patient states for the past 3-4 days she had decreased appetite along with fevers then eventually she noticed that she was having diffuse abdominal pain. Patient states that she could not eat or keep anything down for the past 2 days. She was throwing up yellow colored stuff which she thinks is bile. Patient denies having any blood in her vomitus. She had a recent hospital admission one week back and was treated for acute pancreatitis and also for UTI with ceftriaxone and also received meropenem. She denies any sick contacts or recent travel. Patient states that she has history of GERD and takes Protonix on and off. Patient denied having any constipation or diarrhea. She states that her abdominal pain is diffuse, in all quadrants, feels like cramping pain. She states that the pain medications given in the ED help her and her pain is little better. Patient denied having any chest pain or palpitations. No cough or d ifficulty in breathing. No dysuria or hematuria. She denies having any headaches, blurring of vision or weakness in her extremities. She denies having any joint swelling or pain. In the ER, patient at the time of admission had a fever of 103.3, heart rate 133, respiratory 28, blood pressure 117/71, saturating at 98% on room air. She had a CAT scan of the abdomen showing mild left lower lobe atelectasis. CAT scan of the abdomen and pelvis showed fairly moderate diffuse colonic wall thickening consistent with colitis, constant infectious, inflammatory and or ischemic etiologies. Pseudomembranous colitis is in differential. On reviewing her labs white count of 14.5, hemoglobin 14.2, platelets 429. Sodium 134, potential 4.7, chloride 101, bicarb 19, BUN 3, creatinine 0.57 magnesium 1.2 . CRP 4.2, LDH 621, AST 57, ALT 36. Coronary negative serum alcohol less than 10 urine analysis negative for nitrites, trace leukocyte esterase. On 09/12/2020 -patient is grandson at bedside she states her abdominal pain is much better. She denies having any fevers chills or rigors denies having any chest pain or palpitations. No cough or difficulty in breathing. No dysuria and hematuria. On reviewing the vitals T-max 99.2, heart rate 70s to 80s, respiratory rate 16, blood pressure 113/76 saturating at 97% on room air. Reviewing the patient's labs white count of 7.6, hemoglobin 9.4, platelets 354 macrocytosis with MCV of 100.4 sodium 140, potassium 4.1, chloride 13, bicarb 21, BUN 6, creatinine 0.5. Albumin 3.2. Patient's medications have been reviewed she is on Tylenol, Zosyn, Benadryl, Dilaudid, Motrin, lactobacillus, Ativan, Narcan, Zofran, Protonix, thiamine, van comycin p.o. Objective - Vital Signs Vital signs: Vital Signs Temp 97.9 F 09/12/20 07:54 Pulse 73 09/12/20 07:54 Resp 16 09/12/20 07:54 BP 120/81 09/12/20 07:54 Pulse Ox 98 09/12/20 07:54 Intake & Output 09/11/20 09/12/20 09/12/20 18:59 06:59 18:59 Intake Total 20 Balance 20 Weight 97.522 kg Intake: Oral 20 Other: Voiding Method Toilet # Voids 3 - Exam PHYSICAL EXAMINATION: GENERAL: Acutely ill-appearing, covered in blankets HEENT: Pupils are round and equally reacting to light. EOMI. No scleral icterus. No conjunctival pallor. CARDIOVASCULAR: S1 and S2 present. Tachycardia PULMONARY: Bilateral breath sounds positive. No wheeze or crackles.. ABDOMEN: Soft, positive for tenderness in left lower quadrant mostly . hyperactive bowel sounds MUSCULOSKELETAL: No joint swelling or deformity. EXTREMITIES: No edema NEUROLOGICAL: Alert awake oriented 3. Gross neurological examination did not reveal any focal deficits. SKIN:No rash - Labs CBC & Chem 7: 09/12/20 07:03 09/12/20 07:03 Labs: Abnormal Lab Results - Last 24 Hours (Table) 09/12/20 09/12/20 Range/Units 07:03 07:03 RBC 3.48 L (4.10-5.20) X 10*6/uL Hgb 11.4 L (12.0-15.0) g/dL Hct 35.3 L (37.2-46.3) % MCV 101.4 H (80.0-97.0) fL MCH 32.8 H (27.0-32.0) pg Chloride 113 H (96-109) mmol/L Carbon Dioxide 21.1 L (21.6-31.8) mmol/L BUN 6.0 L (9.0-27.0) mg/dL Creatinine 0.5 L (0.6-1.5) mg/dL Calcium 8.1 L (8.7-10.3) mg/dL Total Protein 5.7 L (6.2-8.2) g/dL Albumin 3.20 L (3.80-4.90) g/dL Albumin/Globulin Ratio 1.28 L (1.60-3.17) g/dL Assessment and Plan Assessment: ASSESSMENT Sepsis-secondary to colitis Abdominal pain due to acute colitis Recent antibiotic use concerns for pseudomembranous colitis Hypomagnesemia Hyponatremia-hypovolemic Elevated AST ALT Elevated lactate dehydrogenase Recent UTI History of recurrent pancreatitis Alcohol dependence Anxiety with depression History of gastric ulcers GERD History of hiatal hernia History of bilateral pneumothorax and bilateral chest tube placement History of nicotine dependence History of marijuana abuse Obesity with BMI of 31.7 PLAN: Patient had a CAT scan of the abdomen and pelvis showing concerns for colitis, possibility of pseudomembranous colitis. Patient received a dose of Unasyn in the ED, which be being continued C.diff negative, stool studies pending Continue vancomycin 125 mg by mouth 4 times a day. Continue with IV fluids. Advance the diet as tolerated Symptomatic management of nausea and vomiting with antiemetics GI and surgery on board and following Overall prognosis is guarded because of multiple complex medical issues Further recommendations to follow depending on the progress of the patient Treatment plan discussed with the patient and mom at bed side.
[2020-09-13] MEDS: HYDROmorphone 1 MG/ML 1 ML SYRINGE IVP PRN ×8 (00:56→22:38)
[2020-09-13] MEDS: AMPICILLIN-SULBACTAM 3 GM in SODIUM CHLORIDE 0.9% 100 ML IVPB SCH ×4 (00:56→23:11)
[2020-09-13] MEDS: HYDROmorphone 0.5 MG/0.5 ML SYRINGE IVP PRN ×7 (02:36→21:01)
[2020-09-13] MEDS: SODIUM CHLORIDE 0.9% 1,000 ML IV SCH ×3 (04:00→21:02)
[2020-09-13] MEDS: LACTOBACILLUS ACIDOPH & BULGAR 1 EACH PACKET PO SCH ×3 (07:22→21:02)
[2020-09-13] MEDS: THIAMINE 100 MG TAB PO SCH ×2 (07:22→16:34)
[2020-09-13] MEDS: diphenhydrAMINE 50 MG CAP PO PRN ×2 (07:57→21:02)
[2020-09-13 09:17] LABS: Basophils # (A) 0.04 X 10*3/uL (0.00-0.10); Basophils % (A) 0.9 %; Eosinophils # (A) 0.18 X 10*3/uL (0.04-0.35); Eosinophils % (A) 3.9 %; HCT 34.3 % (37.2-46.3); HGB 10.9 g/dL (12.0-15.0); Lymphocytes # (A) 2.31 X 10*3/uL (0.90-5.00); Lymphocytes % (A) 49.7 %; MCH 32.6 pg (27.0-32.0); MCHC 31.8 g/dL (32.0-37.0); MCV 102.7 fL (80.0-97.0); Mean Platelet Volume 10.1 fL (9.5-12.2); Monocytes # (A) 0.45 X 10*3/uL (0.20-1.00); Monocytes % (A) 9.7 %; Neutrophils # (A) 1.66 X 10*3/uL (1.80-7.70); Neutrophils % (A) 35.6 %; Platelet Count 319 X 10*3/uL (140-440); RBC 3.34 X 10*6/uL (4.10-5.20); RDW 13.1 % (11.5-14.5); WBC 4.65 X 10*3/uL (4.50-10.00)
[2020-09-13] MEDS: PANTOPRAZOLE 40 MG/10 ML VIAL IVP SCH ×2 (09:17→21:00)
[2020-09-13] MEDS: VANCOMYCIN 125 MG CAPSULE PO SCH (09:17)
--- NOTE | 2020-09-13 10:05 | P.PN ---
Subjective Progress Note Date: 09/13/20 Principal diagnosis: Colitis, abdominal pain Patient seen and examined lying in bed. States she still having severe pain, now also in the epigastric region. States her bowel movements are improving she had only 3-4 through the night with less amount of stool, no blood in her stool. Has some nausea but no vomiting. She has been afebrile. Objective - Vital Signs Vital signs: Vital Signs Temp 98.4 F 09/13/20 07:25 Pulse 70 09/13/20 07:25 Resp 18 09/13/20 07:25 BP 129/88 09/13/20 07:25 Pulse Ox 98 09/13/20 07:25 Intake & Output 09/12/20 09/13/20 09/13/20 18:59 06:59 18:59 Other: Voiding Method Toilet Toilet # Voids 3 1 # Bowel Movements 2 - Exam General appearance: The patient is alert, oriented, appears in no acute distress. HET: Head is normocephalic and atraumatic. Conjunctiva pink. Sclera anicteric. Neck: Supple without lymphadenopathy. Abdomen: Soft, epigastric and lower abdominal tenderness, nondistended with bowel sounds. No guarding or rigidity. Extremities: Normal skin color and turgor. No pedal edema Skin: No rashes, no jaundice Neurological: No focal deficits. Alert and oriented 3. - Labs CBC & Chem 7: 09/13/20 06:14 09/13/20 06:14 Labs: Abnormal Lab Results - Last 24 Hours (Table) 09/12/20 09/12/20 09/13/20 Range/Units 07:03 07:03 06:14 RBC 3.48 L 3.34 L (4.10-5.20) X 10*6/uL Hgb 11.4 L 10.9 L (12.0-15.0) g/dL Hct 35.3 L 34.3 L (37.2-46.3) % MCV 101.4 H 102.7 H (80.0-97.0) fL MCH 32.8 H 32.6 H (27.0-32.0) pg MCHC 31.8 L (32.0-37.0) g/dL Neutrophils # 1.66 L (1.80-7.70) X 10*3/uL Chloride 113 H (96-109) mmol/L Carbon Dioxide 21.1 L (21.6-31.8) mmol/L BUN 6.0 L (9.0-27.0) mg/dL Creatinine 0.5 L (0.6-1.5) mg/dL Calcium 8.1 L (8.7-10.3) mg/dL Total Protein 5.7 L (6.2-8.2) g/dL Albumin 3.20 L (3.80-4.90) g/dL Albumin/Globulin Ratio 1.28 L (1.60-3.17) g/dL Microbiology - Last 24 Hours (Table) 09/12/20 18:49 Stool Culture - Preliminary Stool 09/11/20 13:07 Blood Culture - Preliminary Blood No Growth after 24 hours 09/11/20 13:06 Blood Culture - Preliminary Blood No Growth after 24 hours Assessment and Plan (1) Colitis Narrative/Plan: 35-year-old female presented to the emergency department with complaints of sharp abdominal pain associated with nausea, vomiting, and fever. Patient was recently admitted for acute pancreatitis and urinary tract infection and was on ceftriaxone and meropenen area she has a history of heavy alcohol use and multiple episodes of pancreatitis. She had a max temperature of 103.3 on admission, she's had abdominal pain for 2-3 days associated with nausea and vomiting that has been nonbloody as well as diarrhea up to 60 times a day with no reported blood in stool or per rectum. She had a previous EGD and colonoscop and 10/2018 showing mild gastritis in antrum and body, hiatal hernia, and a normal colon with mild internal hemorrhoids and a diminutive rectal polyp. CT of the abdomen showed new fairly moderate diffuse colonic wall thickening consistent with colitis. Infectious, inflammatory, and or ischemic etiologies are possible. Pseudomembranous colitis is in the differential. Likely we are dealing with infectious colitis related to recent antibiotic use, however need to consider inflammatory and ischemic etiologies as well. Continue current IV antibiotics, no plans on endoscopic evaluation at this time. Current Visit: Yes Status: Acute Code(s): K52.9 - NONINFECTIVE GASTROENTERITIS AND COLITIS, UNSPECIFIED SNOMED Code(s): 60014837 (2) Community acquired pneumonia Current Visit: Yes Status: Acute Code(s): J18.9 - PNEUMONIA, UNSPECIFIED ORGANISM SNOMED Code(s): 315303410 (3) Fever Current Visit: Yes Status: Acute Code(s): R50.9 - FEVER, UNSPECIFIED SN OMED Code(s): 255359921 (4) Abdominal pain Current Visit: No Status: Acute Code(s): R10.9 - UNSPECIFIED ABDOMINAL PAIN SNOMED Code(s): 51346816 Plan: 1. May advance to full liquid 2. Continue IV antibiotics as ordered 3. Protonix 40 mg twice a day 4. Stool studies ordered but pending 5. Antiemetics as needed 6. No plans on endoscopic evaluation at this time, patient will need outpatient colonoscopy in 6-8 weeks 7. Continue pain medication as needed per primary medicine team Thank you for this consultation, we will continue to follow Dr. Elvin Hutson I agree with the dictator's note, documented as a scribe by Madison Black.
[2020-09-13 10:47] LABS: ALT 19 U/L (8-44); AST 24 U/L (13-35); African American GFR (CKD) 144.3 (60.0-200.0); Albumin/Globulin Ratio 1.35 (1.60-3.17); Alkaline Phosphatase 69 U/L (41-126); Blood Urea Nitrogen <5.0 mg/dL (9.0-27.0); Calcium 8.2 mg/dL (8.7-10.3); Carbon Dioxide 16.3 mmol/L (21.6-31.8); Chloride 112 mmol/L (96-109); Globulin 2.3 g/dL (1.6-3.3); Glucose 85 mg/dL (70-110); Non-African American GFR(CKD) 124.5 (60.0-200.0); Potassium 4.1 mmol/L (3.5-5.5); Sodium 138 mmol/L (135-145); Total Bilirubin 0.4 mg/dL (0.2-1.2); Total Protein 5.4 g/dL (6.2-8.2)
--- NOTE | 2020-09-13 13:41 | P.PN ---
Subjective Progress Note Date: 09/13/20 CHIEF COMPLAINT: Abdominal pain HISTORY OF PRESENT ILLNESS: Surgical service is following regards to patient's colitis. Patient is complaining of diffuse abdominal pain. Patient is still having diarrhea. But she reports a decrease in frequency of stools. She denies any vomiting. She has been having some nausea. Patient is complaining that the nurses are not giving her the pain medication as prescribed. Patient asking for more pain medication. Afebrile. WBC is 4.65 hemoglobin 10.9 platelets 319 sodium 138 potassium 4.1 creatinine 0.5 Patient seen and examined with Dr. redd PHYSICAL EXAM: VITAL SIGNS: Reviewed. GENERAL: Well-developed in no acute distress. HEENT: No sclera icterus. Extraocular movements grossly intact. Moist buccal mucosa. Head is atraumatic, normocephalic. ABDOMEN: Soft. Nondistended. Diffuse tenderness NEUROLOGIC: Alert and oriented. Cranial nerves II through XII grossly intact. ASSESSMENT: 1. Colitis 2. Abdominal pain with nausea, vomiting and diarrhea PLAN: -No surgical intervention planned -Patient will need outpatient colonoscopy in about 6 weeks after current infection is treated -Agree with advancing diet to full liquids -Continue antibiotics -Continue IV fluids Physician Form Setter/Driver note has been reviewed by physician. Signing provider agrees with the documented findings, assessment, and plan of care. Objective - Vital Signs Vital signs: Vital Signs Temp 98.4 F 09/13/20 07:25 Pulse 70 09/13/20 07:25 Resp 18 09/13/20 07:25 BP 129/88 09/13/20 07:25 Pulse Ox 98 09/13/20 07:25 Intake & Output 09/12/20 09/13/20 09/13/20 18:59 06:59 18:59 Other: Voiding Method Toilet Toilet # Voids 3 1 # Bowel Movements 2 - Labs CBC & Chem 7: 09/13/20 06:14 09/13/20 06:14 Labs: Abnormal Lab Results - Last 24 Hours (Table) 09/12/20 09/13/20 09/13/20 Range/Units 07:03 06:14 06:14 RBC 3.34 L (4.10-5.20) X 10*6/uL Hgb 10.9 L (12.0-15.0) g/dL Hct 34.3 L (37.2-46.3) % MCV 102.7 H (80.0-97.0) fL MCH 32.6 H (27.0-32.0) pg MCHC 31.8 L (32.0-37.0) g/dL Neutrophils # 1.66 L (1.80-7.70) X 10*3/uL Chloride 113 H 112 H (96-109) mmol/L Carbon Dioxide 21.1 L 16.3 L (21.6-31.8) mmol/L BUN 6.0 L <5.0 L (9.0-27.0) mg/dL Creatinine 0.5 L 0.5 L (0.6-1.5) mg/dL Calcium 8.1 L 8.2 L (8.7-10.3) mg/dL Total Protein 5.7 L 5.4 L (6.2-8.2) g/dL Albumin 3.20 L 3.10 L (3.80-4.90) g/dL Albumin/Globulin Ratio 1.28 L 1.35 L (1.60-3.17) g/dL Microbiology - Last 24 Hours (Table) 09/12/20 18:49 Stool Culture - Preliminary Stool 09/11/20 13:07 Blood Culture - Preliminary Blood No Growth after 24 hours 09/11/20 13:06 Blood Culture - Preliminary Blood No Growth after 24 hours
[2020-09-13] MEDS: HYDROcodone/APAP 5-325MG 1 EACH TAB PO PRN ×2 (15:08→23:11)
[2020-09-14] MEDS: HYDROmorphone 0.5 MG/0.5 ML SYRINGE IVP PRN ×6 (01:26→18:13)
[2020-09-14] MEDS: HYDROmorphone 1 MG/ML 1 ML SYRINGE IVP PRN ×8 (02:16→23:24)
[2020-09-14] MEDS: SODIUM CHLORIDE 0.9% 1,000 ML IV SCH ×3 (05:07→22:19)
[2020-09-14] MEDS: LACTOBACILLUS ACIDOPH & BULGAR 1 EACH PACKET PO SCH ×3 (08:19→20:28)
[2020-09-14] MEDS: PANTOPRAZOLE 40 MG/10 ML VIAL IVP SCH (08:19)
[2020-09-14] MEDS: THIAMINE 100 MG TAB PO SCH ×2 (08:19→15:56)
[2020-09-14] MEDS: HEPARIN SODIUM,PORCINE/PF 5,000 UNIT/0.5 ML SYRINGE SQ SCH ×3 (08:19→23:05)
[2020-09-14] MEDS: AMPICILLIN-SULBACTAM 3 GM in SODIUM CHLORIDE 0.9% 100 ML IVPB SCH ×3 (08:20→23:24)
[2020-09-14] MEDS: HYDROcodone/APAP 5-325MG 1 EACH TAB PO PRN (08:33)
[2020-09-14 08:47] LABS: Basophils # (A) 0.1 k/uL (0-0.2); Basophils % (A) 1 %; Eosinophils # (A) 0.2 k/uL (0-0.7); Eosinophils % (A) 4 %; HCT 36.3 % (34.0-46.0); HGB 12.1 gm/dL (11.4-16.0); Lymphocytes # (A) 2.1 k/uL (1.0-4.8); Lymphocytes % (A) 44 %; MCH 33.5 pg (25.0-35.0); MCHC 33.2 g/dL (31.0-37.0); MCV 100.8 fL (80.0-100.0); Mean Platelet Volume 8.9; Monocytes # (A) 0.3 k/uL (0-1.0); Monocytes % (A) 6 %; Neutrophils # (A) 2.1 k/uL (1.3-7.7); Neutrophils % (A) 43 %; Platelet Count 330 k/uL (150-450); RDW 12.9 % (11.5-15.5); WBC 4.8 k/uL (3.8-10.6)
--- NOTE | 2020-09-14 10:11 | P.PN ---
Subjective Progress Note Date: 09/14/20 Principal diagnosis: Colitis Patient says her pain is somewhat improved. She had about 7 episodes of diarrhea yesterday. Requesting more to eat. No nausea or vomiting. Objective - Vital Signs Vital signs: Vital Signs Temp 98.5 F 09/14/20 06:39 Pulse 56 L 09/14/20 06:39 Resp 18 09/14/20 06:39 BP 142/89 09/14/20 06:39 Pulse Ox 96 09/14/20 06:39 Intake & Output 09/13/20 09/14/20 09/14/20 18:59 06:59 18:59 Other: Voiding Method Toilet # Voids 3 4 - Exam Abdomen: Soft, nondistended, mild diffuse tenderness - Labs CBC & Chem 7: 09/14/20 07:46 09/13/20 06:14 Labs: Abnormal Lab Results - Last 24 Hours (Table) 09/13/20 09/14/20 Range/Units 06:14 07:46 RBC 3.60 L (3.80-5.40) m/uL MCV 100.8 H (80.0-100.0) fL Chloride 112 H (96-109) mmol/L Carbon Dioxide 16.3 L (21.6-31.8) mmol/L BUN <5.0 L (9.0-27.0) mg/dL Creatinine 0.5 L (0.6-1.5) mg/dL Calcium 8.2 L (8.7-10.3) mg/dL Total Protein 5.4 L (6.2-8.2) g/dL Albumin 3.10 L (3.80-4.90) g/dL Albumin/Globulin Ratio 1.35 L (1.60-3.17) g/dL Microbiology - Last 24 Hours (Table) 09/11/20 13:07 Blood Culture - Preliminary Blood No Growth after 48 hours 09/11/20 13:06 Blood Culture - Preliminary Blood No Growth after 48 hours Assessment and Plan (1) Colitis Narrative/Plan: Patient gradually improving. Continue antibiotics. Follow stool cultures. Agree with advancing diet. Will follow. Current Visit: Yes Status: Acute Code(s): K52.9 - NONINFECTIVE GASTROENT ERITIS AND COLITIS, UNSPECIFIED SNOMED Code(s): 27417086
--- NOTE | 2020-09-14 11:16 | P.PN ---
Subjective Acute Colitis Ms. Delgado is a 35-year-old female with a past medical history of GERD, hiatal hernia, gastric ulcers, mortality, lack stent at age 16 years with bilateral pneumothorax/bilateral chest tubes, anxiety with depression coming into the hospital with a chief complaint of abdominal pain, nausea and vomiting. Patient states for the past 3-4 days she had decreased appetite along with fevers then eventually she noticed that she was having diffuse abdominal pain. Patient states that she could not eat or keep anything down for the past 2 days. She was throwing up yellow colored stuff which she thinks is bile. Patient denies having any blood in her vomitus. She had a recent hospital admission one week back and was treated for acute pancreatitis and also for UTI with ceftriaxone and also received meropenem. She denies any sick contacts or recent travel. Patient states that she has history of GERD and takes Protonix on and off. Patient denied having any constipation or diarrhea. She states that her abdominal pain is diffuse, in all quadrants, feels like cramping pain. She states that the pain medications given in the ED help her and her pain is little better. Patient denied having any chest pain or palpitations. No cough or difficulty in breathing. No dysuria or hematuria. She denies having any headaches, blurring of vision or weakness in her extremities. She denies having any joint swelling or pain. In the ER, patient at the time of admission had a fever of 103.3, heart rate 133, respiratory 28, blood pressure 117/71, saturating at 98% on room air. She had a CAT scan of the abdomen showing mild left lower lobe atelectasis. CAT scan of the abdomen and pelvis showed fairly moderate diffuse colonic wall thickening consistent with colitis, constant infectious, inflammatory and or ischemic etiologies. Pseudomembranous colitis is in differential. On reviewing her labs white count of 14.5, hemoglobin 14.2, platelets 429. Sodium 134, potential 4.7, chloride 101, bicarb 19, BUN 3, creatinine 0.57 magnesium 1.2 . CRP 4.2, LDH 621, AST 57, ALT 36. Coronary negative serum alcohol less than 10 urine analysis negative for nitrites, trace leukocyte esterase. On 09/12/2020 -patient is grandson at bedside she states her abdominal pain is much better. She denies having any fevers chills or rigors denies having any chest pain or palpitations. No cough or difficulty in breathing. No dysuria and hematuria. On reviewing the vitals T-max 99.2, heart rate 70s to 80s, respiratory rate 16, blood pressure 113/76 saturating at 97% on room air. Reviewing the patient's labs white count of 7.6, hemoglobin 9.4, platelets 354 macrocytosis with MCV of 100.4 sodium 140, potassium 4.1, chloride 13, bicarb 21, BUN 6, creatinine 0.5. Albumin 3.2. 09/14/2020 Patient's C. diff EIA is negative. Patient was later Unasyn or vancomycin was discussed in your. There is no evidence of pseudomembranous colitis clinically. Patient is still complaining of left lower quadrant abdominal pain. PHYSICAL EXAMINATION: GENERAL: Acutely ill-appearing, covered in blankets HEENT: Pupils are round and equally reacting to light. EOMI. No scleral icterus. No conjunctival pallor. CARDIOVASCULAR: S1 and S2 present. Tachycardia PULMONARY: Bilateral breath sounds positive. No wheeze or crackles.. ABDOMEN: Soft, positive for tenderness in left lower quadrant mostly . hyperactive bowel sounds MUSCULOSKELETAL: No joint swelling or deformity. EXTREMITIES: No edema NEUROLOGICAL: Alert awake oriented 3. Gross neurological examination did not reveal any focal deficits. SKIN:No rash Assessment and Plan Assessment: ASSESSMENT Sepsis-secondary to colitis and on Unasyn, ruled out for C. diff, patient is on diet now. Abdominal pain due to acute colitis Hypomagnesemia Hyponatremia-hypovolemic and can you with IV fluids Elevated AST ALT: Secondary to sepsis, only mild elevation improved now Recent UTI History of recurrent pancreatitis Alcohol dependence Anxiety with depression History of gastric ulcers GERD History of hiatal hernia History of bilateral pneumothorax and bilateral chest tube placement History of nicotine dependence History of marijuana abuse Obesity with BMI of 31.7 Objective - Vital Signs Vital signs: Vital Signs Temp 98.5 F 09/14/20 06:39 Pulse 56 L 09/14/20 06:39 Resp 18 09/14/20 06:39 BP 142/89 09/14/20 06:39 Pulse Ox 96 09/14/20 06:39 Intake & Output 09/13/20 09/14/20 09/14/20 18:59 06:59 18:59 Other: Voiding Method Toilet # Voids 3 4 - Labs CBC & Chem 7: 09/14/20 07:46 09/13/20 06:14 Labs: Abnormal Lab Results - Last 24 Hours (Table) 09/14/20 Range/Units 07:46 RBC 3.60 L (3.80-5.40) m/uL MCV 100.8 H (80.0-100.0) fL Microbiology - Last 24 Hours (Table) 09/11/20 13:07 Blood Culture - Preliminary Blood No Growth after 48 hours 09/11/20 13:06 Blood Culture - Preliminary Blood No Growth after 48 hours
--- NOTE | 2020-09-14 13:04 | PN ---
PROGRESS NOTE PROGRESS NOTE: Patient is a 35-year-old pleasant white female admitted to the hospital with abdominal pain, nausea, vomiting and diarrhea with a high-grade fever of 103.3. CT scan of the abdomen showed diffuse colitis. Patient presently on broad-spectrum antibiotics for acute infectious colitis. Stool studies so far have been negative. She is feeling much better. Nausea, vomiting have resolved. She still continues to have some abdominal pain. She had about 8 loose bowel movements yesterday and 2 so far this morning. On a clear liquid diet, tolerating well. PHYSICAL EXAMINATION: She appears comfortable. No apparent distress. Vital signs are stable. Blood pressure is 133/86, pulse rate 82 per minute and afebrile. HEENT Examination unremarkable. Conjunctivae pink. Sclerae anicteric. Oral cavity, no lesions. Neck: No JVD or lymph node enlargement. Chest: Clear to auscultation. Heart: Regular rate and rhythm. Abdomen: Soft, there was mild tenderness in the epigastric area. Rest of the abdomen was benign. Extremities: No pedal edema. Skin: No rashes. Neuro: She is alert and oriented x3. No focal deficits. LABS: Lab done today, WBC 4.8, hemoglobin 12.1, platelets are normal. Basic metabolic panel is within normal limits. IMPRESSION: 1. This is a lady who presents to the hospital with acute onset of diffuse abdominal pain associated with nausea, vomiting and diarrhea for the last 3 days' duration. Most likely, the clinical picture is consistent with acute infectious colitis. Patient on broad-spectrum antibiotics with Zofran. The symptoms are gradually improving. She continues to have persistent diarrhea, which is also improving. Stool studies so far have been negative. Cultures have been negative and C difficile toxin is negative. 2. Remote history of acute pancreatitis. 3. History of anxiety and depression. RECOMMENDATIONS: 1. Continue with broad-spectrum antibiotics. 2. Continue to advance diet as tolerated. 3. Repeat labs in the morning. 4. Will follow with you closely. Thank you for this consultation. MMODL / IJN: [id number] /
[2020-09-14 14:33] VITALS: RESP 17
[2020-09-14] MEDS: HYDROcodone/APAP 7.5-325MG 1 EACH TAB PO PRN ×2 (14:40→22:19)
[2020-09-14] MEDS: PANTOPRAZOLE 40 MG TABLET PO SCH (20:28)
[2020-09-15] MEDS: HYDROmorphone 1 MG/ML 1 ML SYRINGE IVP PRN ×2 (01:30→05:48)
[2020-09-15] MEDS: SODIUM CHLORIDE 0.9% 1,000 ML IV SCH (05:19)
[2020-09-15] MEDS: PANTOPRAZOLE 40 MG TABLET PO SCH (07:19)
[2020-09-15] MEDS: LACTOBACILLUS ACIDOPH & BULGAR 1 EACH PACKET PO SCH (07:19)
[2020-09-15] MEDS: THIAMINE 100 MG TAB PO SCH (07:19)
[2020-09-15] MEDS: HYDROmorphone 0.5 MG/0.5 ML SYRINGE IVP PRN (07:19)
[2020-09-15] MEDS: AMPICILLIN-SULBACTAM 3 GM in SODIUM CHLORIDE 0.9% 100 ML IVPB SCH (07:19)
[2020-09-15] MEDS: HEPARIN SODIUM,PORCINE/PF 5,000 UNIT/0.5 ML SYRINGE SQ SCH (07:20)
[2020-09-15 07:36] VITALS: PULSE 56; TEMP 98.3
[2020-09-15 07:58] VITALS: BP 134/90
--- NOTE | 2020-09-15 08:50 | P.PN ---
Subjective Progress Note Date: 09/15/20 Principal diagnosis: Colitis Patient says she feels slightly better today. Hepatitis improved. Still with crampy pain at times. Still with loose stools at times. She is afebrile. White blood cell count normal yesterday. Objective - Vital Signs Vital signs: Vital Signs Temp 98.3 F 09/15/20 06:50 Pulse 56 L 09/15/20 06:50 Resp 17 09/15/20 06:50 BP 134/90 09/15/20 07:57 Pulse Ox 95 09/15/20 06:50 Intake & Output 09/14/20 09/15/20 09/15/20 18:59 06:59 18:59 Intake Total 2009 Balance 2009 Intake: Intake, IV Titration 1330 Amount Sodium Chloride 0.9% 1, 1330 000 ml @ 130 mls/hr IV . Q7H42M [facility] Rx#:[id number] Oral 680 Other: Voiding Method Toilet Toilet # Voids 3 2 # Bowel Movements 1 - Exam Abdomen: Soft, nondistended, mild diffuse tenderness - Labs CBC & Chem 7: 09/14/20 07:46 09/13/20 06:14 Labs: Microbiology - Last 24 Hours (Table) 09/14/20 10:15 Urine Culture - Preliminary Urine,Clean Catch 09/11/20 13:07 Blood Culture - Preliminary Blood No Growth after 72 hours 09/11/20 13:06 Blood Culture - Preliminary Blood No Growth after 72 hours Assessment and Plan (1) Colitis Narrative/Plan: Patient gradually improving. Outpatient follow-up for endoscopy with either GI or Dr. George. Low fiber diet for now. Current Visit: Yes Status: Acute Code(s): K52.9 - NONINFECTIVE GASTROENTERITIS AND COLITIS, UNSPECIFIED SNOMED Code(s): 58188352
--- NOTE | 2020-09-15 09:26 | P.DS ---
Providers Date of admission: 09/11/20 07:23 Attending physician: Hero Pedersen Consults: 09/11/20 14:03 Consult Physician Urgent Consulting Provider: Cornelio Wing Consult Reason/Comments: colitis Do you want consulting provider notified?: Yes 09/11/20 14:49 Consult Physician Routine Consulting Provider: Min George Consult Reason/Comments: Psueudomembraneous colitis Do you want consulting provider notified?: Yes Primary care physician: [facility] Course: Ms. Delgado is a 35-year-old female with a past medical history of GERD, hiatal hernia, gastric ulcers, mortality, lack stent at age 16 years with bilateral pneumothorax/bilateral chest tubes, anxiety with depression coming into the hospital with a chief complaint of abdominal pain, nausea and vomiting. Patient states for the past 3-4 days she had decreased appetite along with fevers then eventually she noticed that she was having diffuse abdominal pain. Patient states that she could not eat or keep anything down for the past 2 days. She was throwing up yellow colored stuff which she thinks is bile. Patient denies having any blood in her vomitus. She had a recent hospital admission one week back and was treated for acute pancreatitis and also for UTI with ceftriaxone and also received meropenem. She denies any sick contacts or recent travel. Patient states that she has history of GERD and takes Protonix on and off. Patient denied having any constipation or diarrhea. She states that her abdominal pain is diffuse, in all quadrants, feels like cramping pain. She states that the pain medications given in the ED help her and her pain is little better. Patient denied having any chest pain or palpitations. No cough or difficulty in breathing. No dysuria or hematuria. She denies having any heada ches, blurring of vision or weakness in her extremities. She denies having any joint swelling or pain. In the ER, patient at the time of admission had a fever of 103.3, heart rate 133, respiratory 28, blood pressure 117/71, saturating at 98% on room air. She had a CAT scan of the abdomen showing mild left lower lobe atelectasis. CAT scan of the abdomen and pelvis showed fairly moderate diffuse colonic wall thickening consistent with colitis, constant infectious, inflammatory and or ischemic etiologies. Pseudomembranous colitis is in differential. On reviewing her labs white count of 14.5, hemoglobin 14.2, platelets 429. Sodium 134, potential 4.7, chloride 101, bicarb 19, BUN 3, creatinine 0.57 magnesium 1.2 . CRP 4.2, LDH 621, AST 57, ALT 36. Coronary negative serum alcohol less than 10 urine analysis negative for nitrites, trace leukocyte esterase. On 09/12/2020 -patient is grandson at bedside she states her abdominal pain is much better. She denies having any fevers chills or rigors denies having any chest pain or palpitations. No cough or difficulty in breathing. No dysuria and hematuria. On reviewing the vitals T-max 99.2, heart rate 70s to 80s, respiratory rate 16, blood pressure 113/76 saturating at 97% on room air. Reviewing the patient's labs white count of 7.6, hemoglobin 9.4, platelets 354 macrocytosis with MCV of 100.4 sodium 140, potassium 4.1, chloride 13, bicarb 21, BUN 6, creatinine 0.5. Albumin 3.2. 09/14/2020 Patient's C. diff EIA is negative. Patient was later Unasyn or vancomycin was discussed in your. There is no evidence of pseudomembranous colitis clinically. Patient is still complaining of left lower quadrant abdominal pain. 09/15/2020 Patient had overall significant improvement. Patient although still complaining of abdominal pain patient does have chronic pain. Patient will be discharged on Augmentin for 7 more days for infectious colitis. Patient will follow-up with her GI and general surgery as an outpatient PHYSICAL EXAMINATION: GENERAL: Acutely ill-appearing, covered in blankets HEENT: Pupils are round and equally reacting to light. EOMI. No scleral icterus. No conjunctival pallor. CARDIOVASCULAR: S1 and S2 present. Tachycardia PULMONARY: Bilateral breath sounds positive. No wheeze or crackles.. ABDOMEN: Soft, subjectively no tenderness. Normoactive bowel sounds MUSCULOSKELETAL: No joint swelling or deformity. EXTREMITIES: No edema NEUROLOGICAL: Alert awake oriented 3. Gross neurological examination did not reveal any focal deficits. SKIN:No rash Assessment and Plan Assessment: ASSESSMENT Sepsis-secondary to colitis and on Unasyn, ruled out for C. diff, patient is a softer diet which she will continue upon discharge Abdominal pain due to acute colitis and discharged on Augmentin Hypomagnesemia Hyponatremia-hypovolemic, improved with IV fluids Elevated AST ALT: Secondary to sepsis, only mild elevation improved now Recent UTI History of recurrent pancreatitis Alcohol dependence Anxiety with depression History of gastric ulcers GERD History of hiatal hernia History of bilateral pneumothorax and bilateral chest tube placement History of nicotine dependence History of marijuana abuse Obesity with BMI of 31.7 Patient Condition at Discharge: Fair Plan - Discharge Summary Discharge Rx Participant: No New Discharge Prescriptions: New Amoxic-Pot Clav 875-125Mg [Augmentin 875-125] 1 tab PO Q12HR 7 Days #14 tab Continue clonazePAM [KlonoPIN] 1 mg PO TID PRN PRN Reason: Anxiety Pantoprazole [Protonix] 40 mg PO DAILY Vortioxetine Hydrobromide [Trintellix] 10 mg PO DAILY #30 tablet hydrOXYzine pamoate [Vistaril] 25 mg PO QID PRN #120 cap PRN Reason: Anxiety Folic Acid (Unknown Dose) 1 tab PO DAILY Cholecalciferol (Vitamin D3) [Vitamin D3 (3000 Iu)] 75 mcg PO DAILY Baclofen [Lioresal] 5 - 10 mg PO TID PRN PRN Reason: Muscle Spasm Fluticasone Nasal [place] [Flonase Nasal [place]] 1 spray EA NOSTRIL DAILY PRN PRN Reason: Congestion Loperamide HCl [Loperamide] 4 mg PO QID PRN PRN Reason: Diarrhea Spironolactone [Aldactone] 25 mg PO DAILY Acetaminophen with Codeine [Tylenol w/Codeine #4 Tablet] 1 tab PO Q8H PRN PRN Reason: Pain Discharge Medication List clonazePAM [KlonoPIN] 1 mg PO TID PRN 10/20/18 [History] Pantoprazole [Protonix] 40 mg PO DAILY 03/01/19 [History] Vortioxetine Hydrobromide [Trintellix] 10 mg PO DAILY #30 tablet 03/03/19 [Rx] hydrOXYzine pamoate [Vistaril] 25 mg PO QID PRN #120 cap 03/03/19 [Rx] Acetaminophen with Codeine [Tylenol w/Codeine #4 Tablet] 1 tab PO Q8H PRN 0 08/26/20 [History] Baclofen [Lioresal] 5 - 10 mg PO TID PRN 08/26/20 [History] Cholecalciferol (Vitamin D3) [Vitamin D3 (3000 Iu)] 75 mcg PO DAILY 08/26/20 [History] Fluticasone Nasal [place] [Flonase Nasal [place]] 1 spray EA NOSTRIL DAILY PRN 08/26/20 [History] Folic Acid (Unknown Dose) 1 tab PO DAILY 08/26/20 [History] Loperamide HCl [Loperamide] 4 mg PO QID PRN 08/26/20 [History] Spironolactone [Aldactone] 25 mg PO DAILY 08/26/20 [History] Amoxic-Pot Clav 875-125Mg [Augmentin 875-125] 1 tab PO Q12HR 7 Days #14 tab 09/15/20 [Rx] Follow up Appointment(s)/Referral(s): Anabell Hutson MD [STAFF PHYSICIAN] - 1 Week Jude Barksdale DO [Primary Care Provider] - 3 Days Min George MD [STAFF PHYSICIAN] - 1 Week Patient Instructions/Handouts: Low Fiber Diet (GEN), Infectious Colitis (GEN) Discharge Disposition: HOME SELF-CARE
--- NOTE | 2020-09-15 10:01 | PN ---
PROGRESS NOTE DATE OF SERVICE: 09/15/2020 INTERVAL HISTORY: The patient is a 35-year-old white female admitted to the hospital with acute infectious colitis, on broad-spectrum antibiotics. Symptoms improving. Diarrhea has improved. She had 2 bowel movements today somewhat soft in consistency. She continues to have occasional nausea, vomiting. Has some epigastric pain. No fever, chills, night sweats. PHYSICAL EXAMINATION: GENERAL: Appears comfortable. VITAL SIGNS: Stable. Blood pressure 134/90, pulse rate 56, temperature 98.3 HEENT: Examination unremarkable. Conjunctivae are pink. Sclerae anicteric. Oral cavity no lesions. NECK: No JVD or lymph node enlargement. CHEST: Clear to auscultation. HEART: Regular rate and rhythm. ABDOMEN: Slightly distended. There was mild tenderness in the epigastric area. The rest of the abdomen was benign. Bowel sounds are positive. No organomegaly. EXTREMITIES: No pedal edema. NEURO: She is alert and oriented x3. No focal deficits. LABS: No labs available from today. IMPRESSION: 1. Acute infectious colitis on broad-spectrum antibiotics. Symptoms are gradually improving. 2. History of recurrent pancreatitis in the past with epigastric pain, improving. 3. History of anxiety and depression. RECOMMENDATIONS: 1. Advance diet as tolerated. 2. She can be discharged home today with outpatient followup in a couple of weeks. 3. Continue with antibiotics on an outpatient basis for 5 days. Thank you for this consultation. MMNAYANAL / MIGUELANGELN: [id number] /
== END 2020-09-15 09:51 | disposition home or self-care (01) | DRG 872 ==
LOC: EC 05:02 → 4SSUR 07:23
PROVIDERS: ADMIT Hospitalist; ATTEND Hospitalist
DX: A41.9 Sepsis, unspecified organism (principal); A09 Infectious gastroenteritis and colitis, unspecified; E87.1 Hypo-osmolality and hyponatremia; K86.1 Other chronic pancreatitis; J98.11 Atelectasis; R10.9 Unspecified abdominal pain; K21.9 Gastro-esophageal reflux disease without esophagitis; Z87.891 Personal history of nicotine dependence; G89.29 Other chronic pain; E83.42 Hypomagnesemia; F10.20 Alcohol dependence, uncomplicated; F41.9 Anxiety disorder, unspecified; F32.9 Major depressive disorder, single episode, unspecified; Z20.822 Contact with and (suspected) exposure to COVID-19; E66.9 Obesity, unspecified; Z68.31 Body mass index [BMI] 31.0-31.9, adult; Z87.11 Personal history of peptic ulcer disease; Z87.440 Personal history of urinary (tract) infections; K75.9 Inflammatory liver disease, unspecified; K44.9 Diaphragmatic hernia without obstruction or gangrene; Z86.010 Personal history of colon polyps; E86.1 Hypovolemia; Z79.899 Other long term (current) drug therapy
CPT/HCPCS: 36415; 71046; 74177; 80053; 80320; 81001; 82550; 83615; 83690; 83735; 84100; 84484; 85025; 85610; 85730; 86140; 87040; 87045; 87046; 87086; 87324; 87635; 93005; 94760; 96365; 96367; 96375; 99285

== ENCOUNTER 2020-09-19 16:55 | Observation (INO) | payer OTHER ==
[2020-09-19] MEDS ORDERED: ACETAMINOPHEN TAB 500 MG TAB PO STA (18:09)
[2020-09-19] MEDS ORDERED: SODIUM CHLORIDE 0.9% 1,000 ML IV STA (18:09)
[2020-09-19] MEDS ORDERED: HYDROmorphone 0.5 MG/0.5 ML SYRINGE IVP STA (18:10)
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
[2020-09-19 19:23] LABS: Basophils # (A) 0.2 k/uL (0-0.2); Basophils % (A) 1 %; Eosinophils # (A) 0.1 k/uL (0-0.7); Eosinophils % (A) 1 %; HCT 37.3 % (34.0-46.0); HGB 12.8 gm/dL (11.4-16.0); Lymphocytes # (A) 1.7 k/uL (1.0-4.8); Lymphocytes % (A) 14 %; MCH 32.9 pg (25.0-35.0); MCHC 34.4 g/dL (31.0-37.0); Mean Platelet Volume 6.9; Monocytes # (A) 0.7 k/uL (0-1.0); Monocytes % (A) 6 %; Neutrophils # (A) 9.5 k/uL (1.3-7.7); Neutrophils % (A) 77 %; Platelet Count 524 k/uL (150-450); RBC 3.89 m/uL (3.80-5.40); RDW 12.8 % (11.5-15.5); WBC 12.4 k/uL (3.8-10.6)
--- NOTE | 2020-09-19 19:27 | XR ---
EXAMINATION TYPE: XR chest 2V DATE OF EXAM: 09/19/2020 COMPARISON: NONE HISTORY: 09/11/2020 TECHNIQUE: 2 views FINDINGS: Heart and mediastinum are normal. Lungs are clear of infiltrate. There is no heart failure. There are no hilar masses. There is small linear density left lung base. IMPRESSION: Minimal subsegmental atelectasis left lung base.. Normal heart. No change.
[2020-09-19 19:34] LABS: ALT 27 U/L (4-34); AST 45 U/L (14-36); African American GFR (CKD) >90 (>60 ml/min/1.73 sqM); Albumin 4.3 g/dL (3.5-5.0); Alkaline Phosphatase 95 U/L (38-126); Anion Gap 12 mmol/L; Blood Urea Nitrogen 4 mg/dL (7-17); C Reactive Protein 3.7 mg/dL (<1.0); Calcium 10.3 mg/dL (8.4-10.2); Carbon Dioxide 26 mmol/L (22-30); Chloride 102 mmol/L (98-107); Glucose 107 mg/dL (74-99); Non-African American GFR(CKD) >90 (>60 ml/min/1.73 sqM); Potassium 3.9 mmol/L (3.5-5.1); Sodium 140 mmol/L (137-145); Total Bilirubin 1.6 mg/dL (0.2-1.3); Total Protein 7.5 g/dL (6.3-8.2)
[2020-09-19] MEDS ORDERED: KETOROLAC 15 MG/ML 1 ML VIAL IVP STA (20:01)
[2020-09-19] MEDS ORDERED: ONDANSETRON 4 MG/2 ML VIAL IVP STA (20:10)
[2020-09-19 20:15] LABS: Appearance,Urine Clear (Clear); Bilirubin,Urine Negative (Negative); Blood,Urine Large (Negative); Color,Urine Yellow; Glucose,Urine (UA) Negative (Negative); Ketones,Urine Negative (Negative); Leukocyte Esterase,Urine Trace (Negative); Mucus,Urine Rare /hpf; Nitrite,Urine Negative (Negative); Protein,Urine Negative (Negative); RBC,Urine 17 /hpf (0-5); Specific Gravity,Urine 1.009 (1.001-1.035); Squamous Epithelial Cell,Urine 3 /hpf (0-4); Urobilinogen,Urine <2.0 mg/dL (<2.0); WBC,Urine <1 /hpf (0-5)
[2020-09-19 20:29] LABS: MCV 95.8 fL (80.0-100.0)
[2020-09-19 20:30] LABS: Erythrocyte Sedimentation Rate 43 mm/hr (0-20)
[2020-09-19] MEDS ORDERED: ONDANSETRON 4 MG/2 ML VIAL IVP PRN ×2 (20:36→21:15)
[2020-09-19] MEDS ORDERED: NALOXONE 0.4 MG/ML 1 ML VIAL IV PRN ×3 (20:36→22:49)
[2020-09-19] MEDS ORDERED: KETOROLAC 15 MG/ML 1 ML VIAL IVP PRN (20:36)
[2020-09-19] MEDS ORDERED: ACETAMINOPHEN TAB 325 MG TAB PO PRN ×2 (20:36→21:15)
[2020-09-19] MEDS ORDERED: HYDROmorphone 0.5 MG/0.5 ML SYRINGE IVP PRN (20:36)
[2020-09-19] MEDS ORDERED: SODIUM CHLORIDE 0.9% 1,000 ML IV SCH (20:45)
[2020-09-19] MEDS ORDERED: IBUPROFEN 400 MG TAB PO PRN (21:15)
[2020-09-19] MEDS ORDERED: FAMOTIDINE 20 MG/2 ML VIAL IV STA (21:49)
[2020-09-19] MEDS: SODIUM CHLORIDE 0.9% 1,000 ML IV SCH (22:34)
[2020-09-19] MEDS: HYDROmorphone 0.5 MG/0.5 ML SYRINGE IVP PRN (22:35)
[2020-09-20] MEDS: HYDROmorphone 0.5 MG/0.5 ML SYRINGE IVP PRN ×3 (01:46→08:52)
[2020-09-20] MEDS ORDERED: AMOXIC-POT CLAV 875-125MG 1 EACH TAB PO SCH (09:00)
[2020-09-20] MEDS ORDERED: IOPAMIDOL CONTRAST (ORAL USE) VIAL PO PRN (10:41)
[2020-09-20] MEDS ORDERED: PANTOPRAZOLE 40 MG/10 ML VIAL IVP SCH (10:45)
[2020-09-20 12:28] LABS: HCT 38.1 % (34.0-46.0); HGB 12.3 gm/dL (11.4-16.0); MCH 32.3 pg (25.0-35.0); MCHC 32.3 g/dL (31.0-37.0); MCV 99.8 fL (80.0-100.0); Mean Platelet Volume 7.2; Platelet Count 437 k/uL (150-450); RBC 3.82 m/uL (3.80-5.40); RDW 13.3 % (11.5-15.5); WBC 5.7 k/uL (3.8-10.6)
[2020-09-20] MEDS ORDERED: DICYCLOMINE 20 MG TAB PO PRN (14:47)
[2020-09-20] MEDS ORDERED: FLUTICASONE 50MCG/SPRAY NASAL 16GM EA NOSTRIL PRN (14:47)
[2020-09-20] MEDS ORDERED: LOPERAMIDE 2 MG CAP PO PRN (14:47)
[2020-09-20] MEDS ORDERED: BACLOFEN 10 MG TAB PO PRN (14:47)
--- NOTE | 2020-09-20 14:51 | CT ---
EXAMINATION TYPE: CT abdomen pelvis w con DATE OF EXAM: 09/20/2020 COMPARISON: 09/12/2019 HISTORY: Generalized pain with nausea CT DLP: 1454.6 mGycm Automated exposure control for dose reduction was used. CONTRAST: CT scan of the abdomen pelvis is performed with IV Contrast, patient injected with 100 mL of Isovue 3 00. FINDINGS- LUNG BASES-subsegmental consolidation at both lung bases most typical of atelectasis. Underlying pneu monia not excluded. Heart is enlarged.. LIVER/GB-there are prominent sided 22 cm is reduced in attenuation correlate for hepatic steatosis. N o definite gallstones.. PANCREAS-punctate calcifications are seen in the head of the pancreas. Pancreatic duct is normal in s ize. No biliary obstruction identified.. SPLEEN-the spleen measures 13.5 cm and mildly enlarged. ADRENALS- No gross abnormality is seen. KIDNEYS/BLADDER- no hydronephrosis nephrolithiasis or renal mass. BOWEL-there is diffuse bowel wall thickening involving the transverse colon right and left colon. Cor relate for colitis. Appendix normal. Could not exclude blood callosal lesions correlate with direct v isualization as clinically warranted. LYMPH NODES- No greater than 1cm abdominal or pelvic lymph nodes areappreciated. OSSEOUS STRUCTURES-hypertrophic and degenerative changes of the spine sclerosis involving the sacrum likely degenerative but could be correlated with bone scan as clinically warranted.. OTHER- aorta of normal caliber. Small hiatal hernia noted. No free fluid or free air. IMPRESSION- 1. Diffuse colonic wall thickening correlate for colitis. Follow-up to resolution to exclude underlyi ng mucosal lesion. 2. Bilateral lower lobe infiltrate. 3. Hepatic steatosis correlate for hepatosplenomegaly.
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
--- NOTE | 2020-09-20 15:14 | P.DS ---
Providers Date of admission: 09/19/20 22:49 Attending physician: Hero Pedersen Primary care physician: [facility]– [place] Course: Refer to my history of present illness for further details Patient Condition at Discharge: Fair Plan - Discharge Summary Discharge Rx Participant: No New Discharge Prescriptions: Continue clonazePAM [KlonoPIN] 1 mg PO TID PRN PRN Reason: Anxiety Vortioxetine Hydrobromide [Trintellix] 10 mg PO DAILY #30 tablet hydrOXYzine pamoate [Vistaril] 25 mg PO QID PRN #120 cap PRN Reason: Anxiety Folic Acid (Unknown Dose) 1 tab PO DAILY Cholecalciferol (Vitamin D3) [Vitamin D3 (3000 Iu)] 75 mcg PO DAILY Baclofen [Lioresal] 5 - 10 mg PO TID PRN PRN Reason: Muscle Spasm Fluticasone Nasal [place] [Flonase Nasal [place]] 1 spray EA NOSTRIL DAILY PRN PRN Reason: Congestion Amoxic-Pot Clav 875-125Mg [Augmentin 875-125] 1 tab PO Q12HR 7 Days #14 tab Loperamide HCl [Loperamide] 4 mg PO QID PRN PRN Reason: Diarrhea Spironolactone [Aldactone] 25 mg PO DAILY Acetaminophen with Codeine [Tylenol w/Codeine #4 Tablet] 1 tab PO Q8H PRN PRN Reason: Pain Dicyclomine HCl 20 mg PO QID PRN PRN Reason: Gi Upset Changed Pantoprazole [Protonix] 40 mg PO BID #0 Discontinued Ibuprofen [Motrin Ib] 600 mg PO Q8H PRN PRN Reason: Pain Discharge Medication List clonazePAM [KlonoPIN] 1 mg PO TID PRN 10/20/18 [History] Vortioxetine Hydrobromide [Trintellix] 10 mg PO DAILY #30 tablet 03/03/19 [Rx] hydrOXYzine pamoate [Vistaril] 25 mg PO QID PRN #120 cap 03/03/19 [Rx] Acetaminophen with Codeine [Tylenol w/Codeine #4 Tablet] 1 tab PO Q8H PRN 08/26/20 [History] Baclofen [Lioresal] 5 - 10 mg PO TID PRN 08/26/20 [History] Cholecalciferol (Vitamin D3) [Vitamin D3 (3000 Iu)] 75 mcg PO DAILY 08/26/20 [History] Fluticasone Nasal [place] [Flonase Nasal [place]] 1 spray EA NOSTRIL DAILY PRN 08/26/20 [History] Folic Acid (Unknown Dose) 1 tab PO DAILY 08/26/20 [History] Loperamide HCl [Loperamide] 4 mg PO QID PRN 08/26/20 [History] Spironolactone [Aldactone] 25 mg PO DAILY 08/26/20 [History] Amoxic-Pot Clav 875-125Mg [Augmentin 875-125] 1 tab PO Q12HR 7 Days #14 tab 09/15/20 [Rx] Dicyclomine HCl 20 mg PO QID PRN 09/19/20 [History] Pantoprazole [Protonix] 40 mg PO BID #0 09/20/20 [Rx] Follow up Appointment(s)/Referral(s): Anabell Hutson MD [STAFF PHYSICIAN] - 1 Week Jude Barksdale DO [Primary Care Provider] - 3 Days Discharge Disposition: HOME SELF-CARE
[2020-09-20] MEDS: SODIUM CHLORIDE 0.9% 1,000 ML IV SCH (15:17)
[2020-09-20 15:23] VITALS: BP 137/90; PULSE 65; RESP 16; TEMP 98.8
[2020-09-20] MEDS ORDERED: traMADol 50 MG TAB PO STA (16:51)
[2020-09-21] MEDS ORDERED: PANTOPRAZOLE 40 MG TABLET PO SCH (07:30)
[2020-09-21] MEDS ORDERED: FOLIC ACID 1 MG TAB PO SCH (09:00)
[2020-09-21] MEDS ORDERED: VORTIOXETINE HYDROBROMIDE 10 MG TABLET PO SCH (09:00)
[2020-09-21] MEDS ORDERED: CHOLECALCIFEROL 25 MCG (1000 IU) TABLET PO SCH (09:00)
== END 2020-09-20 17:09 | disposition home or self-care (01) ==
LOC: EC 16:55 → 6NMEDSUR 22:49
PROVIDERS: ADMIT Hospitalist; ATTEND Hospitalist
DX: R10.13 Epigastric pain (principal); R50.9 Fever, unspecified; K21.9 Gastro-esophageal reflux disease without esophagitis; K44.9 Diaphragmatic hernia without obstruction or gangrene; M62.838 Other muscle spasm; R82.90 Unspecified abnormal findings in urine; J98.11 Atelectasis; F32.9 Major depressive disorder, single episode, unspecified; F41.9 Anxiety disorder, unspecified; K52.9 Noninfective gastroenteritis and colitis, unspecified; K76.0 Fatty (change of) liver, not elsewhere classified; L93.0 Discoid lupus erythematosus; E66.9 Obesity, unspecified; Z68.31 Body mass index [BMI] 31.0-31.9, adult; Z79.899 Other long term (current) drug therapy; Z88.5 Allergy status to narcotic agent; Z87.19 Personal history of other diseases of the digestive system; Z87.11 Personal history of peptic ulcer disease; Z87.891 Personal history of nicotine dependence; Z87.01 Personal history of pneumonia (recurrent); Z87.828 Personal history of other (healed) physical injury and trauma; Z82.49 Family history of ischemic heart disease and other diseases of the circulatory system; Z81.8 Family history of other mental and behavioral disorders; Z84.89 Family history of other specified conditions
CPT/HCPCS: 96376; 96361; 96374; 96375; 99285; 36415; 80053; 85652; 83605; 85025; 85027; 86140; 81001; 87040; 71046; 74177; G0378 ×2; J2405; J1885; J1170 ×2; Q9967

== ENCOUNTER 2020-09-30 20:52 | Observation (INO) | payer OTHER ==
[2020-09-30] MEDS ORDERED: diphenhydrAMINE 50 MG/ML 1 ML VIAL IVP STA (21:23)
[2020-09-30] MEDS ORDERED: METOCLOPRAMIDE 5 MG/ML 2 ML VIAL IVP STA (21:23)
[2020-09-30] MEDS ORDERED: ONDANSETRON ODT 8 MG TAB.RAPDIS PO STA (21:23)
[2020-09-30] MEDS ORDERED: HYDROmorphone 1 MG/ML 1 ML SYRINGE IVP STA (21:23)
[2020-09-30] MEDS ORDERED: SODIUM CHLORIDE 0.9% 1,000 ML IV STA ×2 (21:23)
[2020-09-30] MEDS ORDERED: ONDANSETRON ODT 4 MG TAB PO STA (22:10)
[2020-09-30 22:26] LABS: ALT 19 U/L (4-34); AST 47 U/L (14-36); African American GFR (CKD) >90 (>60 ml/min/1.73 sqM); Albumin 4.3 g/dL (3.5-5.0); Alkaline Phosphatase 84 U/L (38-126); Amylase 31 U/L (30-110); Anion Gap 12 mmol/L; Blood Urea Nitrogen 3 mg/dL (7-17); Calcium 9.9 mg/dL (8.4-10.2); Carbon Dioxide 25 mmol/L (22-30); Chloride 99 mmol/L (98-107); Glucose 122 mg/dL (74-99); Lipase 24 U/L (23-300); Magnesium 1.7 mg/dL (1.6-2.3); Non-African American GFR(CKD) >90 (>60 ml/min/1.73 sqM); Potassium 3.1 mmol/L (3.5-5.1); Sodium 136 mmol/L (137-145); Total Bilirubin 1.2 mg/dL (0.2-1.3); Total Protein 7.4 g/dL (6.3-8.2)
[2020-09-30 22:28] LABS: Appearance,Urine Cloudy (Clear); Bacteria,Urine Moderate /hpf; Bilirubin,Urine Negative (Negative); Blood,Urine Trace (Negative); Color,Urine Yellow; Glucose,Urine (UA) Negative (Negative); Ketones,Urine Trace (Negative); Leukocyte Esterase,Urine Negative (Negative); Mucus,Urine Occasional /hpf; Nitrite,Urine Negative (Negative); Protein,Urine Negative (Negative); RBC,Urine 1 /hpf (0-5); Squamous Epithelial Cell,Urine 9 /hpf (0-4); Urobilinogen,Urine <2.0 mg/dL (<2.0); WBC,Urine 3 /hpf (0-5)
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
[2020-09-30] MEDS ORDERED: ONDANSETRON 4 MG/2 ML VIAL IVP PRN (22:34)
[2020-09-30] MEDS ORDERED: NALOXONE 0.4 MG/ML 1 ML VIAL IV PRN (22:34)
[2020-09-30 22:59] LABS: HCT 35.8 % (34.0-46.0); HGB 12.1 gm/dL (11.4-16.0); MCH 32.4 pg (25.0-35.0); MCHC 33.6 g/dL (31.0-37.0); MCV 96.4 fL (80.0-100.0); Mean Platelet Volume 8.8; Platelet Count 364 k/uL (150-450); RBC 3.72 m/uL (3.80-5.40); RDW 12.6 % (11.5-15.5); WBC 8.5 k/uL (3.8-10.6)
[2020-10-01 00:12] LABS: Band Neutrophils % 4 %; Eosinophils # (M) 0.17 k/uL (0-0.7); Lymphocytes # (M) 2.47 k/uL (1.0-4.8); Neutrophils % (M) 58 %; Nucleated Red Blood Cells 0 /100 WBC (0-0); Total Cells Counted 100
[2020-10-01 00:18] LABS: Anisocytosis (M) Present
[2020-10-01] MEDS: SODIUM CHLORIDE 0.9% 1,000 ML IV SCH ×3 (00:34→12:28)
[2020-10-01] MEDS: HYDROmorphone 0.5 MG/0.5 ML SYRINGE IVP PRN ×5 (01:34→16:34)
[2020-10-01 08:23] LABS: ALT 16 U/L (4-34); AST 41 U/L (14-36); African American GFR (CKD) >90 (>60 ml/min/1.73 sqM); Albumin 3.3 g/dL (3.5-5.0); Alkaline Phosphatase 69 U/L (38-126); Anion Gap 8 mmol/L; Blood Urea Nitrogen 3 mg/dL (7-17); Calcium 9.2 mg/dL (8.4-10.2); Carbon Dioxide 25 mmol/L (22-30); Chloride 107 mmol/L (98-107); Glucose 106 mg/dL (74-99); Magnesium 1.8 mg/dL (1.6-2.3); Non-African American GFR(CKD) >90 (>60 ml/min/1.73 sqM); Phosphorus 3.9 mg/dL (2.5-4.5); Potassium 3.5 mmol/L (3.5-5.1); Sodium 140 mmol/L (137-145); Total Protein 6.3 g/dL (6.3-8.2)
[2020-10-01 08:31] LABS: HCT 34.6 % (34.0-46.0); HGB 11.3 gm/dL (11.4-16.0); MCH 32.7 pg (25.0-35.0); MCHC 32.8 g/dL (31.0-37.0); MCV 99.6 fL (80.0-100.0); Mean Platelet Volume 8.9; Platelet Count 388 k/uL (150-450); RBC 3.47 m/uL (3.80-5.40); RDW 13.2 % (11.5-15.5); WBC 5.4 k/uL (3.8-10.6)
[2020-10-01] MEDS ORDERED: PANTOPRAZOLE 40 MG/10 ML VIAL IV SCH (09:00)
[2020-10-01 09:02] LABS: Lymphocytes # (M) 1.62 k/uL (1.0-4.8); Neutrophils # (M) 3.08 k/uL (1.3-7.7); Neutrophils % (M) 57 %; Nucleated Red Blood Cells 0 /100 WBC (0-0); Total Cells Counted 100
[2020-10-01 16:27] LABS: Gliadin AB IgA, Deaminated NEGATIVE (NEGATIVE); Gliadin AB IgA, Unit 0.5 U/mL; Gliadin AB IgG, Deaminated NEGATIVE (NEGATIVE)
--- NOTE | 2020-10-01 18:55 | CONS ---
CONSULTATION DATE OF SERVICE: 10/01/2020 REASON FOR CONSULTATION: Nausea, vomiting and diarrhea. HISTORY OF PRESENT ILLNESS: The patient is a 35-year-old pleasant white female who came to the emergency room complaining of severe abdominal pain, mostly in the epigastric area associated with nausea, vomiting, fever, and diarrhea for the last few days. The patient has been in the hospital three different times in the last one month for the same reasons. She has been having about 3-4 episodes of emesis daily, low-grade fever at 99-100 at home, had about 6-7 loose watery bowel movements daily. She was recently discharged home from the hospital about a week ago at which time she was admitted for the same, treated symptomatic. During this hospitalization she had a CT of the abdomen and pelvis done that showed some thickening of the colon suspicious for acute colitis. Patient did have an EGD and colonoscopy by Dr. Wing in 2019 that showed some gastritis and small colon polyp. No history of inflammatory bowel disease. Patient has prior hospitalizations with pancreatitis related to alcohol use. PAST MEDICAL HISTORY: Significant for GERD, alcohol-related pancreatitis. PAST SURGICAL HISTORY: EGD, colonoscopy in 2019. SOCIAL HISTORY: Former smoker. She denies any drinking at this. FAMILY HISTORY: Mother has lupus and some heart problems. Father unremarkable. MEDICATIONS: Medications at home include Klonopin, Tylenol #4, baclofen, vitamin D3, Flonase, folic acid, loperamide, Aldactone, and dicyclomine. ALLERGIES: MORPHINE. REVIEW OF SYSTEMS: CARDIOPULMONARY: No chest pain, no shortness of breath. GENITOURINARY: No dysuria or hematuria. MUSCULOSKELETAL: Unremarkable. SKIN: Unremarkable. ENDOCRINE: Unremarkable. PSYCHIATRIC: Anxiety, depression. ENT/VISION: Unremarkable. CONSTITUTIONAL: No recent weight loss. No fever, chills, night sweats. HEMATOLOGY: Severe anemia. GI: As mentioned above. RHEUMATOLOGY: Unremarkable. PHYSICAL EXAMINATION: She appears comfortable. VITAL SIGNS: Stable. Blood pressure is 107/68, pulse rate 68, temperature 98.2. HEENT examination unremarkable. Conjunctivae pink. Sclerae anicteric. Oral cavity, no lesions. NECK: No JVD or lymph node enlargement. CHEST: Clear to auscultation. HEART: Regular rate and rhythm. ABDOMEN: Soft. There was tenderness in the epigastric area. The rest of the abdomen was slightly obese but there was no rebound or rigidity noted. EXTREMITIES: No pedal edema. NEUROLOGIC: Alert and oriented x3. No focal deficits. LABS: WBC 5.4, hemoglobin 11.3, platelets normal. Basic metabolic panel is all within normal limits. BUN and creatinine are within normal limits. AST 47, ALT 19, T bilirubin and alkaline phosphatase are normal. CRP is 6.4. Amylase and lipase are normal. Urinalysis is negative. C difficile toxin is negative. IMPRESSION: 1. Acute onset of nausea, vomiting, diarrhea for the last few days duration. Patient has been having these intermittent symptoms for the last one month. She has been to the ER three different times with hospitalization the last two times and treated symptomatically and was discharged home. During this hospitalization CT scan showed some thickening of the colon suspicious for colitis. Possibility of infectious colitis with irritable bowel syndrome versus inflammatory bowel disease needs to be considered. 2. History of anxiety and depression. 3. History of gastroesophageal reflux disease. 4. History of alcohol related pancreatitis in the past. RECOMMENDATIONS: 1. Start on clear liquid diet. 2. Await rest of the stool studies. 3. Protonix and IV antiemetics as needed. 4. Discussed with the patient possibility of EGD and colonoscopy if she continues to have persistent symptoms depending on stool results. We will follow with you closely. Thank you for this consultation. OSIEL / DREW: [id number] /
[2020-10-01] MEDS ORDERED: diphenhydrAMINE 25 MG CAP PO PRN (19:57)
[2020-10-01] MEDS: HYDROmorphone 1 MG/ML 1 ML SYRINGE IVP PRN (20:16)
[2020-10-01] MEDS: PANTOPRAZOLE 40 MG/10 ML VIAL IV SCH (20:20)
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
[2020-10-02] MEDS: SODIUM CHLORIDE 0.9% 1,000 ML IV SCH ×3 (06:39→09:18)
[2020-10-02] MEDS: PANTOPRAZOLE 40 MG/10 ML VIAL IV SCH ×2 (09:15→21:06)
[2020-10-02] MEDS: HYDROmorphone 1 MG/ML 1 ML SYRINGE IVP PRN ×4 (09:15→21:07)
[2020-10-02] MEDS: CHOLESTYRAMINE (WITH SUGAR) 4 GM PACKET PO SCH ×2 (09:51→18:29)
--- NOTE | 2020-10-02 16:04 | P.PN ---
Subjective Progress Note Date: 10/02/20 Patient is a 35 old female with a known history of hypertension, pancreatitis, hiatal hernia, GERD, history of gastric ulcers, history of lupus currently not on any medications, anxiety/depression and a sister smoking presents to ER with complaints of abdominal pain. Patient says that she started having epigastric abdominal pain along with question nausea and vomiting. Patient does have a history of peptic ulcer disease. Patient was recently admitted to the hospital for infectious colitis and C. diff was ruled out. Patient was started on antibiotics but she could not tolerate the antibiotics. Presented back to the hospital with epigastric abdominal pain. Patient had previous multiple admis sions with similar complaints. Laboratory data showed WBC 5.4 hemoglobin 11.3 and platelets 388 Sodium 140 potassium 3.5, chloride 107 BUN 3 and creatinine 0.4 Amylase 31 and lipase 24 Urinalysis is negative for infection. Patient has been afebrile. 10/02/2020 Patient is seen in follow-up this morning continues to request IV pain medication stating she is having upper abdominal epigastric discomfort and not understanding why she continues to have this pain with no relief. GI is following and plans are for EGD with colonoscopy and the bowel prep is being started. Patient states she is passing gas and having multiple episodes of diarrhea although they have lessened in severity. Patient is tolerating diet and continues to have intermittent periods of nausea with abdominal pain with no reported episodes of vomiting noted. Patient continues with Questran although will instruct nursing staff to hold while performing the bowel prep. Patient to continue with IV hydration and will follow-up with repeat labs in the morning. Patient will be nothing by mouth at midnight. Review of systems: Constitutional: reports of fatigue, no reports of fever, or chills Cardiovascular: No reports of chest pain or palpitations Respiratory: No reports of shortness of breath or cough GI: reports nausea, no reports of vomiting, reports loose stool : No reports of dysuria or retention Neurovascular: No reports of weakness or numbness All medications have been reviewed Objective - Vital Signs Vital signs: Vital Signs Temp 98.7 F 10/02/20 08:15 Pulse 75 10/02/20 08:15 Resp 17 10/02/20 08:15 BP 100/68 10/02/20 08:15 Pulse Ox 95 10/02/20 08:15 Intake & Output 10/01/20 10/02/20 10/02/20 18:59 06:59 18:59 Intake Total 500 Balance 500 Intake: Oral 500 Other: Voiding Method Toilet # Voids 3 - Exam Patient is lying in the bed comfortably, no acute distress, awake alert and oriented.. HEENT: Normocephalic. Neck is supple. Pupils reactive. Nostrils clear. Oral cavity is moist. Neck reveals no JVD, carotid bruits, or thyromegaly. CHEST EXAMINATION: Trachea is central. Symmetrical expansion. Lung jimenez clear to auscultation and percussion. CARDIAC: Normal S1, S2 with no gallops. No murmurs ABDOMEN: Soft. Epigastric abdominal tenderness. Bowel sounds normal. No organomegaly. No abdominal bruits. Extremities: reveal no edema. No clubbing or cyanosis Neurologically awake, alert, oriented x3 with well-coordinated movements. No focal deficits noted Skin: No rash or skin lesions. Psychiatric: Cooperative. Non-suicidal. Musculoskeletal: No joint swelling or deformity. Normal range of motion. - Labs CBC & Chem 7: 10/01/20 06:53 10/01/20 06:53 Labs: Microbiology - Last 24 Hours (Table) 10/01/20 11:40 Stool Culture - Preliminary Stool Assessment and Plan Assessment: Intractable Nausea vomiting and diarrhea and abdominal pain. Recent admission with colitis possible infectious with CT evidence of thickening of the colon. History of peptic ulcer disease/GERD Hiatal hernia Previous history of alcohol pancreatitis Anxiety/depression DVT prophylaxis with heparin subcu GI prophylaxis: Protonix Full code Plan: Patient will be continued IV hydration, IV pain medications and continue with IV Protonix. Patient will start bowel prep for EGD colonoscopy and GI following closely. Plans are for endoscopic intervention in the morning. Continue with symptomatic management for nausea. Instructed the patient increase activity and get up out of the bed more often. Stool studies are negative. Will repeat a.m. labs and continue to monitor closely.
--- NOTE | 2020-10-02 16:05 | P.PN ---
Subjective Progress Note Date: 10/02/20 Principal diagnosis: nausea, vomiting, diarrhea The patient is seen and examined lying in bed. She presented to the emergency department with complaints of ongoing abdominal pain with nausea and vomiting as well as diarrhea. Patient also states that she has been having intermittent fevers at home. She states her diarrhea is improving as well as her nausea and vomiting. However she states she is still having severe epigastric pain. Stool studies were ordered and are negative to date. Discussed with patient about proceeding with EGD and colonoscopy and patient states that she would like to proceed. Objective - Vital Signs Vital signs: Vital Signs Temp 98.3 F 10/02/20 02:00 Pulse 81 10/02/20 02:00 Resp 16 10/02/20 02:00 BP 102/64 10/02/20 02:00 Pulse Ox 94 L 10/02/20 02:00 Intake & Output 10/01/20 10/02/20 10/02/20 18:59 06:59 18:59 Intake Total 500 Balance 500 Intake: Oral 500 Other: Voiding Method Toilet # Voids 3 - Exam General appearance: The patient is alert, oriented, appears in no acute distress. HET: Head is normocephalic and atraumatic. Conjunctiva pink. Sclera anicteric. Neck: Supple without lymphadenopathy. Abdomen: Soft, epigastric tenderness, nondistended with bowel sounds. No guarding or rigidity. Extremities: Normal skin color and turgor. No pedal edema Skin: No rashes, no jaundice Neurological: No focal deficits. Alert and oriented 3. - Labs CBC & Chem 7: 10/01/20 06:53 10/01/20 06:53 Labs: Abnormal Lab Results - Last 24 Hours (Table) 10/01/20 10/01/20 Range/Units 06:53 06:53 ESR 58 H (0-20) mm/hr C-Reactive Protein 6.4 H (<1.0) mg/dL Microbiology - Last 24 Hours (Table) 10/01/20 11:40 Stool Culture - Preliminary Stool Assessment and Plan Assessment: 1. Acute onset nausea, vomiting, diarrhea for the last few days duration. Patient has been having these intermittent symptoms for the last 1 month. She has been in the ER 3 different times with hospitalization the last 2 times and treated symptomatically and was discharged home. During this past ho spitalization computed tomography scan showed some thickening of the colon suspicious for colitis. Possibility of infectious colitis with irritable bowel syndrome versus inflammatory bowel disease needs to be considered. 2. History of anxiety and depression 3. History of gastro-esophageal reflux disease 4. History of alcohol-related pancreatitis Plan: 1. Symptomatic and supportive care 2. Celiac panel, CRP and SED rate ordered 3. Stool studies ordered 4. Continue antiemetics as needed 5. Clear liquid diet, nothing by mouth after midnight 6. Will proceed with EGD and colonoscopy tomorrow 7. Bowel prep this evening Thank you for this consultation, we will continue to follow Dr. Elvin Hutson I agree with the dictator's note, documented as a scribe by Madison Black.
[2020-10-02] MEDS ORDERED: PEG 3350-NA SULF,BICARB,CL/KCL 4,000 ML BOTTLE PO ONE (17:00)
[2020-10-02] MEDS ORDERED: diphenhydrAMINE 25 MG CAP ONE (23:59)
[2020-10-02] MEDS ORDERED: HYDROmorphone 1 MG/ML 1 ML SYRINGE ONE (23:59)
[2020-10-03] MEDS: HYDROmorphone 1 MG/ML 1 ML SYRINGE IVP PRN ×5 (01:03→15:02)
[2020-10-03] MEDS: SODIUM CHLORIDE 0.9% 1,000 ML IV SCH ×3 (01:04→11:42)
[2020-10-03] MEDS ORDERED: LACTATED RINGERS 1,000 ML IV SCH ×2 (05:33)
[2020-10-03] MEDS: PANTOPRAZOLE 40 MG/10 ML VIAL IV SCH (08:37)
[2020-10-03 10:00] LABS: Basophils # (A) 0.1 k/uL (0-0.2); Basophils % (A) 1 %; Eosinophils # (A) 0.2 k/uL (0-0.7); Eosinophils % (A) 3 %; HCT 32.6 % (34.0-46.0); HGB 10.8 gm/dL (11.4-16.0); Lymphocytes # (A) 1.6 k/uL (1.0-4.8); Lymphocytes % (A) 28 %; MCH 32.8 pg (25.0-35.0); MCHC 33.1 g/dL (31.0-37.0); Mean Platelet Volume 7.3; Monocytes # (A) 0.3 k/uL (0-1.0); Monocytes % (A) 5 %; Neutrophils # (A) 3.3 k/uL (1.3-7.7); Neutrophils % (A) 59 %; Platelet Count 471 k/uL (150-450); RBC 3.29 m/uL (3.80-5.40); RDW 13.3 % (11.5-15.5); WBC 5.6 k/uL (3.8-10.6)
[2020-10-03 10:11] LABS: African American GFR (CKD) >90 (>60 ml/min/1.73 sqM); Anion Gap 9 mmol/L; Blood Urea Nitrogen <2 mg/dL (7-17); Calcium 9.1 mg/dL (8.4-10.2); Carbon Dioxide 17 mmol/L (22-30); Chloride 114 mmol/L (98-107); Glucose 93 mg/dL (74-99); Non-African American GFR(CKD) >90 (>60 ml/min/1.73 sqM); Potassium 3.6 mmol/L (3.5-5.1); Sodium 140 mmol/L (137-145)
[2020-10-03] MEDS ORDERED: HYDROmorphone 0.5 MG/0.5 ML SYRINGE IVP PRN (10:59)
[2020-10-03] MEDS: CHOLESTYRAMINE (WITH SUGAR) 4 GM PACKET PO SCH (11:41)
[2020-10-03] MEDS ORDERED: IV FLUID CONTINUATION 800 ML IV ONE (12:55)
[2020-10-03] MEDS ORDERED: LIDOCAINE 1% INJ 10MG/ML (20 ML MDV) ONE (13:01)
[2020-10-03] MEDS ORDERED: PROPOFOL 10 MG/ML 20 ML VIAL IV ONE (13:01)
--- NOTE | 2020-10-03 13:19 | P.PCN ---
Date of Procedure: 10/03/20 Procedure(s) Performed: Brief history: Patient is a pleasant 35-year-old white female admitted hospital with diffuse abdominal pain associated with nausea vomiting diarrhea on and off for the last 6 weeks duration. She is been the hospital 3 times in the last 6 weeks for similar symptoms. Recent CAT scan showed thickening of the colon suspicious for colitis. Because of the recurrent symptoms she is scheduled for an upper endoscopy as well as coloscopy to evaluate for inflammatory bowel disease Procedure performed: Esophagogastroduodenoscopy with biopsy Colonoscopy With biopsy Preoperative diagnosis: Abdominal pain, Nausea vomiting and diarrhea of several weeks duration Anesthesia: MAC Procedure: After informed consent was obtained from the patient was brought into the endoscopy unit and IV sedation was administered by anesthesia under continuous monitoring. Initially upper endoscopy was done. The Olympus GF 160 video endoscope was inserted inserted into the mouth and esophagus intubated without any difficulty and was gradually advanced into the stomach and duodenum and carefully examined. The bulb and second part of the duodenum appeared normal. The scope was then withdrawn into the stomach adequately insufflated with air and upon careful examination the antrum a had mild gastritis and biopsies were done from this area. The body, cardia and fundus appeared normal. The scope was then withdrawn into the esophagus. The GE junction was located at 40 cm to the incisors. It appeared regular with no erythema erosions or ulcerations. Rest of the esophagus appeared normal. Patient tolerated the procedure well. At this time the patient continued to remain sedation. Initial digital rectal examination was normal. Olympus CF 160 video colonoscope was then inserted into the rectum and gradually advanced to the cecum without any difficulty. Careful examination was performed as the scope was gradually being withdrawn. The prep was excellent. Terminal ileum wasn't intubated and 20 cm visualized and appeared normal. Random biopsies were done from the terminal ileum. Random biopsies were also done from the cecum and ascending colon to rule out microscopic/collagenous colitis The cecum, ascending colon, transverse colon, descending colon, sigmoid colon and rectum appeared normal. Retroflexion was performed in the rectum and no lesions were noted. Patient tolerated the procedure well. Impression: 1. Upper endoscopy revealed minimal antral gastritis, no evidence of esophagitis or peptic ulcer 2. Colonoscopy was within normal limits including the terminal ileum with no evidence of colitis or colorectal neoplasia Recommendations: Findings of this examination were discussed with the patient. Her symptoms are suggestive of irritable bowel syndrome. Continue with symptomatic and supportive care. Diet will be advanced as tolerated. Await biopsy results..
[2020-10-03 13:51] VITALS: RESP 18
[2020-10-03 14:52] VITALS: BP 136/88; PULSE 66; TEMP 98.4
--- NOTE | 2020-10-06 01:12 | P.DS ---
Providers Date of admission: 09/30/20 22:29 Expected date of discharge: 10/03/20 Attending physician: Hero Pedersen Consults: 09/30/20 22:35 Consult Physician Routine Consulting Provider: Cornelio Wing Consult Reason/Comments: pain Do you want consulting provider notified?: Yes Primary care physician: Jude Barksdale [facility] Course: Final diagnosis Intractable Nausea vomiting and diarrhea and abdominal pain. status post EGD/ Colonoscopy showing mild antral gastritis and no evidence of colitis or neoplasia. with biopsies Recent admission with colitis possible infectious with CT evidence of thickening of the colon. History of peptic ulcer disease/GERD Hiatal hernia Previous history of alcohol pancreatitis Anxiety/depression DVT prophylaxis GI prophylaxis Full code Discharge disposition Patient is being discharged in a stable condition with guarded prognosis to home. Patient will follow-up with Dr. Barksdale in the outpatient setting upon discharge. Patient is to also follow up with GI Dr. Hutson outpatient. Patient to continue with questran as needed. Total time taken is greater than 35 minutes. Hospital course Patient is a 35 old female with a known history of hypertension, pancreatitis, hiatal hernia, GERD, history of gastric ulcers, history of lupus currently not on any medications, anxiety/depression and a sister smoking presents to ER with complaints of abdominal pain. Patient says that she started having epigastric abdominal pain along with question nausea and vomiting. Patient does have a history of peptic ulcer disease. Patient was recently admitted to the hospital for infectious colitis and C. diff was ruled out. Patient was started on antibiotics but she could not tolerate the antibiotics. Presented back to the hospital with epigastric abdominal pain. Patient had previous multiple admissions with similar complaints. Laboratory data showed WBC 5.4 hemoglobin 11.3 and platelets 388 Sodium 140 potassium 3.5, chloride 107 BUN 3 and creatinine 0.4 Amylase 31 and lipase 24 Urinalysis is negative for infection. Patient has been afebrile. 10/02/2020 Patient is seen in follow-up this morning continues to request IV pain medica tion stating she is having upper abdominal epigastric discomfort and not understanding why she continues to have this pain with no relief. GI is following and plans are for EGD with colonoscopy and the bowel prep is being started. Patient states she is passing gas and having multiple episodes of diarrhea although they have lessened in severity. Patient is tolerating diet and continues to have intermittent periods of nausea with abdominal pain with no reported episodes of vomiting noted. Patient continues with Questran although will instruct nursing staff to hold while performing the bowel prep. Patient to continue with IV hydration and will follow-up with repeat labs in the morning. Patient will be nothing by mouth at midnight. 10/03/2020 Patient is seen in follow-up this morning and underwent colonoscopy and EGD showing mild antral gastritis and no evidence of colitis or neoplasia. Multiple biopsies obtained and patient will follow up outpatient for results. 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 Currently no reports of chest pain, shortness of breath, or palpitations. Patient is afebrile. No reports of nausea or vomiting and patient is tolerating diet. Patient will be discharged home today. Guarded prognosis due to multiple readmissions for this. On exam vital signs are stable. Cardio S1, S2 are muffled. Respiratory system shows diminished breath sounds at the bases with no wheezing or rhonchi noted. Abdomen is soft and nontender. Nervous system shows no focal deficit. Please refer to medication reconciliation sheet for a list of medications. Patient Condition at Discharge: Fair Plan - Discharge Summary New Discharge Prescriptions: New Cholestyramine (with Sugar) [Questran Packet] 4 gm PO BID@1000,1800 PRN #30 packet PRN Reason: Diarrhea Continue clonazePAM [KlonoPIN] 1 mg PO TID PRN PRN Reason: Anxiety Vortioxetine Hydrobromide [Trintellix] 10 mg PO DAILY #30 tablet hydrOXYzine pamoate [Vistaril] 25 mg PO QID PRN #120 cap PRN Reason: Anxiety Folic Acid (Unknown Dose) 1 tab PO DAILY Cholecalciferol (Vitamin D3) [Vitamin D3 (3000 Iu)] 75 mcg PO DAILY Baclofen [Lioresal] 5 - 10 mg PO TID PRN PRN Reason: Muscle Spasm Fluticasone Nasal [place] [Flonase Nasal [place]] 1 spray EA NOSTRIL DAILY PRN PRN Reason: Congestion Acetaminophen with Codeine [Tylenol w/Codeine #4 Tablet] 1 tab PO Q8H PRN #12 cap PRN Reason: Pain Loperamide HCl [Loperamide] 4 mg PO QID PRN PRN Reason: Diarrhea Spironolactone [Aldactone] 25 mg PO DAILY Dicyclomine HCl 20 mg PO QID PRN PRN Reason: Gi Upset Pantoprazole Sodium [Protonix] 40 mg PO BID #60 tablet.dr Discharge Medication List clonazePAM [KlonoPIN] 1 mg PO TID PRN 10/20/18 [History] Vortioxetine Hydrobromide [Trintellix] 10 mg PO DAILY #30 tablet 03/03/19 [Rx] hydrOXYzine pamoate [Vistaril] 25 mg PO QID PRN #120 cap 03/03/19 [Rx] Baclofen [Lioresal] 5 - 10 mg PO TID PRN 08/26/20 [History] Cholecalciferol (Vitamin D3) [Vitamin D3 (3000 Iu)] 75 mcg PO DAILY 08/26/20 [History] Fluticasone Nasal [place] [Flonase Nasal [place]] 1 spray EA NOSTRIL DAILY PRN 08/26/20 [History] Folic Acid (Unknown Dose) 1 tab PO DAILY 08/26/20 [History] Loperamide HCl [Loperamide] 4 mg PO QID PRN 08/26/20 [History] Spironolactone [Aldactone] 25 mg PO DAILY 08/26/20 [History] Dicyclomine HCl 20 mg PO QID PRN 09/19/20 [History] Pantoprazole Sodium [Protonix] 40 mg PO BID #60 tablet. 09/20/20 [Rx] Acetaminophen with Codeine [Tylenol w/Codeine #4 Tablet] 1 tab PO Q8H PRN #12 cap 10/03/20 [Rx] Cholestyramine (with Sugar) [Questran Packet] 4 gm PO BID@1000,1800 PRN #30 packet 10/03/20 [Rx] Follow up Appointment(s)/Referral(s): Anabell Hutson MD [STAFF PHYSICIAN] - 11/05/20 2:00 pm Jude Barksdale DO [Primary Care Provider] - 10/07/20 4:30 pm Patient Instructions/Handouts: Irritable Bowel Syndrome (ED), Irritable Bowel Syndrome (DC) Activity/Diet/Wound Care/Special Instructions: Activity Limited until follow-up Continue medications as prescribed Follow-up primary care provider upon discharge Follow-up with GI outpatient in one week Continue with Protonix twice daily Diet as tolerated. smaller meals with ways operator foods today.( keep a diary of foods that cause you issues.) last received pain meds at 3pm Discharge Disposition: HOME SELF-CARE
== END 2020-10-03 15:45 | disposition home or self-care (01) ==
LOC: EC 20:52 → 6PED 22:29
PROVIDERS: ADMIT Hospitalist; ATTEND Hospitalist
DX: R10.13 Epigastric pain (principal); R11.2 Nausea with vomiting, unspecified; R19.7 Diarrhea, unspecified; K29.70 Gastritis, unspecified, without bleeding; F32.9 Major depressive disorder, single episode, unspecified; F41.9 Anxiety disorder, unspecified; I10 Essential (primary) hypertension; Z79.899 Other long term (current) drug therapy; Z83.2 Family history of diseases of the blood and blood-forming organs and certain disorders involving the immune mechanism; Z87.11 Personal history of peptic ulcer disease; Z87.19 Personal history of other diseases of the digestive system; Z87.891 Personal history of nicotine dependence
CPT/HCPCS: 45380; 43239; 96361 ×3; 96375 ×2; 96376 ×2; 96523; 96374; 99285; 36415; 88305; 80053 ×2; 80048; 85652; 82150; 83605; 83690; 83735 ×2; 84100; 85025 ×3; 86140; 81001; 81025; 87324; 83516 ×4; 87045; 87329; 87328; 87046; G0378 ×4; J1200; J2765; J2001; J1170 ×5; J2704; C9113 ×3

== ENCOUNTER 2020-10-07 11:50 | Emergency (ER) | payer OTHER ==
[2020-10-07 12:10] VITALS: RESP 18; TEMP 98.6
[2020-10-07] MEDS ORDERED: diphenhydrAMINE 50 MG/ML 1 ML VIAL IVP STA (13:17)
[2020-10-07] MEDS ORDERED: KETOROLAC 15 MG/ML 1 ML VIAL IVP STA ×2 (13:17→14:52)
[2020-10-07] MEDS ORDERED: SODIUM CHLORIDE 0.9% 2,000 ML IV STA (13:17)
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
[2020-10-07 14:21] LABS: ALT 17 U/L (4-34); AST 30 U/L (14-36); African American GFR (CKD) >90 (>60 ml/min/1.73 sqM); Albumin 3.7 g/dL (3.5-5.0); Alkaline Phosphatase 71 U/L (38-126); Amylase 34 U/L (30-110); Anion Gap 12 mmol/L; Blood Urea Nitrogen 3 mg/dL (7-17); Calcium 9.8 mg/dL (8.4-10.2); Carbon Dioxide 28 mmol/L (22-30); Chloride 100 mmol/L (98-107); Glucose 113 mg/dL (74-99); Lipase 12 U/L (23-300); Non-African American GFR(CKD) >90 (>60 ml/min/1.73 sqM); Sodium 140 mmol/L (137-145); Total Bilirubin 1.9 mg/dL (0.2-1.3); Total Protein 6.9 g/dL (6.3-8.2)
[2020-10-07 14:24] LABS: HCT 35.8 % (34.0-46.0); HGB 12.3 gm/dL (11.4-16.0); MCH 33.2 pg (25.0-35.0); MCHC 34.3 g/dL (31.0-37.0); MCV 96.8 fL (80.0-100.0); Mean Platelet Volume 7.3; Platelet Count 550 k/uL (150-450); RDW 13.5 % (11.5-15.5)
[2020-10-07] MEDS ORDERED: POTASSIUM BICARBONATE/CIT AC 20 MEQ TABLET.EFF PO ONE (14:35)
[2020-10-07 14:42] LABS: Amphetamine Screen,Urine Not Detected (NotDetected); Barbiturate Screen,Urine Not Detected (NotDetected); Benzodiazepines Screen,Urine Not Detected (NotDetected); Cocaine Screen,Urine Not Detected (NotDetected); Methadone Screen, Urine Not Detected (NotDetected); Opiate Screen,Urine Detected (NotDetected); Oxycodone Screen, Urine Not Detected (NotDetected); Phencyclidine Screen,Urine Not Detected (NotDetected); Tricyclic Antidepressant,Urine Not Detected (NotDetected); Urn Cannabinoid Scrn Not Detected (NotDetected)
[2020-10-07 14:47] LABS: Bacteria,Urine Moderate /hpf; Budding Yeast,Urine Occasional /hpf; Mucus,Urine Few /hpf; RBC,Urine 11 /hpf (0-5); Squamous Epithelial Cell,Urine 53 /hpf (0-4); WBC,Urine 57 /hpf (0-5)
[2020-10-07 14:48] LABS: Appearance,Urine Slightly Cloudy (Clear); Color,Urine Yellow; PH, Urine 6.5 (5.0-8.0); Protein,Urine 1+ (Negative); Specific Gravity,Urine 1.018 (1.001-1.035)
[2020-10-07 14:49] LABS: Bilirubin,Urine Negative (Negative); Blood,Urine Trace (Negative); Glucose,Urine (UA) Negative (Negative); Ketones,Urine 2+ (Negative); Leukocyte Esterase,Urine Large (Negative); Nitrite,Urine Positive (Negative)
[2020-10-07 15:37] LABS: Lymphocytes # (M) 1.68 k/uL (1.0-4.8); Neutrophils # (M) 3.72 k/uL (1.3-7.7); Neutrophils % (M) 62 %; Nucleated Red Blood Cells 0 /100 WBC (0-0); Total Cells Counted 100
[2020-10-07 15:48] VITALS: BP 114/85; PULSE 74
== END 2020-10-07 15:50 | disposition home or self-care (01) ==
LOC: EC 11:50
DX: R10.9 Unspecified abdominal pain (principal); R11.2 Nausea with vomiting, unspecified; R19.7 Diarrhea, unspecified; K21.9 Gastro-esophageal reflux disease without esophagitis; F32.9 Major depressive disorder, single episode, unspecified; F41.9 Anxiety disorder, unspecified; Z87.891 Personal history of nicotine dependence; Z79.899 Other long term (current) drug therapy
CPT/HCPCS: 36415; 80053; 82150; 83690; 85025; 81001; 81025; 80306; 87086; 96374; 96375 ×2; 96376; 96361 ×2; 99284; J1200; J1885; J1790

== ENCOUNTER 2020-10-27 13:57 | Inpatient (IN) | payer OTHER ==
--- NOTE | 2020-10-27 16:08 | XR ---
EXAMINATION TYPE: XR KUB DATE OF EXAM: 10/27/2020 3:53 PM CLINICAL HISTORY: Abdominal pain TECHNIQUE: Two Upright KUB images of the abdomen are obtained. COMPARISON: CT abdomen/pelvis 09/20/2020 FINDINGS: Scattered gas is seen in non-distended small bowel loops. Gas and fecal material is seen in non-distended colon. There is no visceromegaly, pneumoperitoneum, or abnormal calcification apprecia lesa. The lung bases are clear and the osseous structures are intact. IMPRESSION: Overall nonobstructive bowel gas pattern.
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
[2020-10-27 17:35] LABS: Basophils # (A) 0.1 k/uL (0-0.2); Basophils % (A) 1 %; Eosinophils # (A) 0.4 k/uL (0-0.7); Eosinophils % (A) 4 %; HCT 46.1 % (34.0-46.0); Lymphocytes # (A) 2.5 k/uL (1.0-4.8); Lymphocytes % (A) 22 %; MCH 32.5 pg (25.0-35.0); MCHC 32.5 g/dL (31.0-37.0); MCV 100.2 fL (80.0-100.0); Macrocytosis Slight; Mean Platelet Volume 7.4; Monocytes # (A) 0.6 k/uL (0-1.0); Monocytes % (A) 5 %; Neutrophils # (A) 7.5 k/uL (1.3-7.7); Neutrophils % (A) 66 %; Platelet Count 539 k/uL (150-450); RBC 4.61 m/uL (3.80-5.40); RDW 13.6 % (11.5-15.5); WBC 11.4 k/uL (3.8-10.6)
[2020-10-27] MEDS ORDERED: SODIUM CHLORIDE 0.9% 1,000 ML IV STA (17:36)
[2020-10-27] MEDS ORDERED: ONDANSETRON 4 MG/2 ML VIAL IVP STA (17:36)
[2020-10-27] MEDS ORDERED: HYDROmorphone 0.5 MG/0.5 ML SYRINGE IVP STA ×2 (17:36→18:40)
[2020-10-27 18:08] LABS: Appearance,Urine Cloudy (Clear); Bacteria,Urine Rare /hpf; Bilirubin,Urine Negative (Negative); Blood,Urine Negative (Negative); Color,Urine Yellow; Glucose,Urine (UA) Negative (Negative); Ketones,Urine Negative (Negative); Leukocyte Esterase,Urine Negative (Negative); Mucus,Urine Moderate /hpf; Nitrite,Urine Negative (Negative); Protein,Urine 1+ (Negative); RBC,Urine 2 /hpf (0-5); Specific Gravity,Urine 1.031 (1.001-1.035); Squamous Epithelial Cell,Urine 4 /hpf (0-4); WBC,Urine 4 /hpf (0-5)
[2020-10-27 18:11] LABS: ALT 68 U/L (4-34); AST 133 U/L (14-36); African American GFR (CKD) >90 (>60 ml/min/1.73 sqM); Albumin 4.5 g/dL (3.5-5.0); Alkaline Phosphatase 128 U/L (38-126); Amylase 162 U/L (30-110); Anion Gap 15 mmol/L; Blood Urea Nitrogen 7 mg/dL (7-17); Calcium 10.1 mg/dL (8.4-10.2); Carbon Dioxide 21 mmol/L (22-30); Chloride 103 mmol/L (98-107); Glucose 146 mg/dL (74-99); Lipase 745 U/L (23-300); Non-African American GFR(CKD) >90 (>60 ml/min/1.73 sqM); Potassium 3.6 mmol/L (3.5-5.1); Sodium 139 mmol/L (137-145); Total Bilirubin 1.6 mg/dL (0.2-1.3); Total Protein 8.5 g/dL (6.3-8.2)
--- NOTE | 2020-10-27 18:42 | US ---
EXAMINATION TYPE: US gallbladder DATE OF EXAM: 10/27/2020 COMPARISON: CT abdomen/pelvis 09/20/2020 CLINICAL HISTORY: RUQ/epigastric pain. Epigastric pain, h/o pancreatitis EXAM MEASUREMENTS: Liver Length: 21.3 cm Gallbladder Wall: 0.2 cm CBD: 0.8 cm Right Kidney: 11.6 x 4.4 x 5.2 cm Pancreas: Body wnl, head and tail obscured by overlying bowel gas Liver: Enlarged, heterogeneous, difficult to penetrate Gallbladder: wnl Evidence for sonographic Bro's sign: Yes CBD: 9 mm diameter. Right Kidney: wnl IMPRESSION: 1. Enlarged coarse heterogeneous liver consistent with underlying hepatocellular disease most commonl y hepatic steatosis. 2. Common bile duct is mildly prominent measuring 9 mm in diameter, which is unchanged from most rece nt CT on 09/20/2020.
[2020-10-27] MEDS ORDERED: HYDROmorphone 0.5 MG/0.5 ML SYRINGE IVP PRN (19:24)
[2020-10-27] MEDS ORDERED: ONDANSETRON 4 MG/2 ML VIAL IVP PRN (19:24)
[2020-10-27] MEDS ORDERED: NALOXONE 0.4 MG/ML 1 ML VIAL IV PRN (19:24)
[2020-10-27] MEDS ORDERED: hydrOXYzine pamoate 25 MG CAP PO PRN (19:25)
[2020-10-27] MEDS ORDERED: FLUTICASONE 50MCG/SPRAY NASAL 16GM EA NOSTRIL PRN (19:25)
[2020-10-27] MEDS ORDERED: LOPERAMIDE 2 MG CAP PO PRN (19:25)
[2020-10-27] MEDS: DICYCLOMINE 20 MG TAB PO PRN (19:51)
[2020-10-27] MEDS ORDERED: KETOROLAC 15 MG/ML 1 ML VIAL IVP STA (20:09)
[2020-10-27] MEDS: SODIUM CHLORIDE 0.9% 1,000 ML IV SCH (20:18)
[2020-10-27] MEDS: HYDROmorphone 1 MG/ML 1 ML SYRINGE IVP PRN (21:58)
[2020-10-27] MEDS: PANTOPRAZOLE 40 MG TABLET PO SCH (22:00)
[2020-10-27] MEDS: LORazepam 2 MG/ML INJ IV PRN (22:47)
[2020-10-28] MEDS ORDERED: KETOROLAC 15 MG/ML 1 ML VIAL IVP SCH
[2020-10-28] MEDS: HYDROmorphone 1 MG/ML 1 ML SYRINGE IVP PRN ×8 (01:04→23:53)
[2020-10-28] MEDS: KETOROLAC 15 MG/ML 1 ML VIAL IVP PRN ×4 (02:47→22:29)
[2020-10-28] MEDS: SODIUM CHLORIDE 0.9% 1,000 ML IV SCH ×2 (02:48→19:57)
[2020-10-28] MEDS: PANTOPRAZOLE 40 MG TABLET PO SCH ×2 (05:34→16:52)
[2020-10-28] MEDS: VORTIOXETINE HYDROBROMIDE 10 MG TABLET PO SCH (09:00)
[2020-10-28] MEDS: FOLIC ACID 1 MG TAB PO SCH (09:00)
[2020-10-28] MEDS: SPIRONOLACTONE 25 MG TAB PO SCH (09:00)
[2020-10-28] MEDS: LORazepam 2 MG/ML INJ IV PRN ×3 (09:33→22:29)
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
[2020-10-28 16:29] LABS: Amylase 151 U/L (30-110); Lipase 987 U/L (23-300)
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
[2020-10-29] MEDS: HYDROmorphone 1 MG/ML 1 ML SYRINGE IVP PRN ×7 (03:02→21:04)
[2020-10-29] MEDS: SODIUM CHLORIDE 0.9% 1,000 ML IV SCH ×5 (03:04→21:05)
[2020-10-29] MEDS: KETOROLAC 15 MG/ML 1 ML VIAL IVP PRN ×4 (04:36→22:18)
--- NOTE | 2020-10-29 05:42 | MR ---
EXAMINATION TYPE: MR pancreas / mrcp wo/w con DATE OF EXAM: 10/28/2020 COMPARISON: 06/21/2018 HISTORY: Chronic relapsing pancreatitis, elevated LFTS. CONTRAST: Standard multiplanar, multisequence MRI departmental protocol utilizing 9 mL intravenous Gadavist kym olinium contrast. There is increased signal at the lung bases consistent with pulmonary infiltrates. Liver shows no foc al defect. Spleen is intact. Gallbladder appears normal. Bile ducts do not appear dilated. Pancreatic duct is difficult to visualize. There is increased fluid signal on the T2 images in the left anterio r pararenal space. There is also fluid around the spleen. There is some fluid posterior to the greate r curvature of the stomach. I see no discrete pancreatic mass. There is increased fluid signal in the anterior pararenal space on the right side as well. The contrast images show normal enhancement of t he kidneys. There is normal enhancement of the portal venous system. There is fairly uniform enhancem ent of the pancreas. Pancreatic margins are not sharp and consistent with some mild inflammation. No discrete pancreatic mass seen. There is loss of the normal lobulated pancreatic margin. IMPRESSION: Increased retroperitoneal fluid bilaterally. Pancreatic margins are not well defined. This is consist ent with pancreatitis. This is a change compared to old exam. Pancreatic duct does not appear dilated . No dilation of the intrahepatic bile ducts. Inflammatory changes also appear new compared to the CT scan of 09/20/2020. No suspicious pancreatic mass. There is evidence for some bilateral lower lobe pulmonary infiltrates similar to the CT scan of 2020..
[2020-10-29] MEDS: PANTOPRAZOLE 40 MG TABLET PO SCH ×2 (06:00→16:41)
[2020-10-29] MEDS: LORazepam 2 MG/ML INJ IV PRN ×2 (07:48→22:18)
[2020-10-29 08:05] LABS: ALT 35 U/L (4-34); AST 52 U/L (14-36); African American GFR (CKD) >90 (>60 ml/min/1.73 sqM); Alkaline Phosphatase 92 U/L (38-126); Anion Gap 7 mmol/L; Blood Urea Nitrogen 5 mg/dL (7-17); Carbon Dioxide 23 mmol/L (22-30); Chloride 109 mmol/L (98-107); Glucose 97 mg/dL (74-99); Non-African American GFR(CKD) >90 (>60 ml/min/1.73 sqM); Potassium 4.1 mmol/L (3.5-5.1); Sodium 139 mmol/L (137-145); Total Bilirubin 2.1 mg/dL (0.2-1.3); Total Protein 6.1 g/dL (6.3-8.2)
[2020-10-29] MEDS: VORTIOXETINE HYDROBROMIDE 10 MG TABLET PO SCH (09:02)
[2020-10-29] MEDS: SPIRONOLACTONE 25 MG TAB PO SCH (09:02)
[2020-10-29] MEDS: FOLIC ACID 1 MG TAB PO SCH (09:02)
--- NOTE | 2020-10-29 14:53 | P.PN ---
Subjective Progress Note Date: 10/29/20 Principal diagnosis: Pancreatitis 35-year-old female who presented to the emergency department 2 days ago with acute onset of epigastric and right upper quadrant pain. She has a history of alcohol pancreatitis and has had multiple admissions over the past 1-2 months. The patient is scheduled for appointment with [facility] on November 06 for further evaluation and possible EUS. Today the patient states abdominal pain is improving, nausea and vomiting has improved. Repeat lipase 987. She did have a slight increase in her total bilirubin to 2.1, otherwise AST, ALT, alkaline phosphatase all improving. MRI of the pancreas show some fluid collection consistent with pancreatitis, no masses seen. No biliary dilation. Objective - Vital Signs Vital signs: Vital Signs Temp 98.7 F 10/29/20 09:09 Pulse 77 10/29/20 09:09 Resp 16 10/29/20 09:09 BP 107/72 10/29/20 09:09 Pulse Ox 95 10/29/20 09:09 Intake & Output 10/28/20 10/29/20 10/29/20 18:59 06:59 18:59 Other: # Voids 1 1 - Exam General appearance: The patient is alert, oriented, appears in no acute distress. HET: Head is normocephalic and atraumatic. Conjunctiva pink. Sclera anicteric. Neck: Supple without lymphadenopathy. Abdomen: Soft, right upper quadrant and epigastric tenderness, nondistended with bowel sounds. No guarding or rigidity. Extremities: Normal skin color and turgor. No pedal edema Skin: No rashes, no jaundice Neurological: No focal deficits. Alert and oriented 3. - Labs CBC & Chem 7: 10/27/20 17:24 10/29/20 07:25 Labs: Abnormal Lab Results - Last 24 Hours (Table) 10/28/20 10/29/20 Range/Units 15:59 07:25 Chloride 109 H (98-107) mmol/L BUN 5 L (7-17) mg/dL Creatinine 0.46 L (0.52-1.04) mg/dL Total Bilirubin 2.1 H (0.2-1.3) mg/dL AST 52 H (14-36) U/L ALT 35 H (4-34) U/L Total Protein 6.1 L (6.3-8.2) g/dL Albumin 3.0 L (3.5-5.0) g/dL Amylase 151 H (30-110) U/L Lipase 987 H (23-300) U/L Assessment and Plan (1) Abdominal pain Narrative/Plan: This is a 35-year-old female who presented to the emergency department with complaints of severe abdominal pain associated with nausea and vomiting she was noted to have an elevation in her amylase and lipase, 162 and 745 respectively. She also had elevation in her LFTs with a total bilirubin 1.6, alkaline phosphatase 128, AST 133, ALT 63. She has a history of recurrent pancreatitis and has been hospitalized 3 times in the last 1-2 months for severe abdominal pain. She has a history of alcohol abuse however states she has not had any alcohol in months. During her last admission she had an EGD and colonoscopy on 10/03/2020. EGD showed mild antral gastritis, colonoscopy showed a normal colon. Biopsy results showed duodenal, terminal ileum, and colonic epithelial lymphocytosis which can be features of celiac disease, versus infectious etiology, versus drug-induced. Patient had celiac panel on 10/01/2020 which was negative. On this admission she had a ultrasound of the gallbladder showing enlarged coarse heterogeneous liver consistent with hepatocellular disease, CBD prominent which was unchanged from CT on 09/20/2020. Plan will be to order an MRCP/MRI of the pancreas. Patient states she does have an appointment with [facility] however she is not sure when. Current Visit: No Status: Acute Code(s): R10.9 - UNSPECIFIED ABDOMINAL PAIN SNOMED Code(s): 96915463 (2) Elevated LFTs Current Visit: Yes Status: Acute Code(s): R79.89 - OTHER SPECIFIED ABNORMAL FINDINGS OF BLOOD CHEMISTRY SNOMED Code(s): 223454020 (3) History of alcohol abuse Current Visit: Yes Status: Acute Code(s): F10.11 - ALCOHOL ABUSE, IN REMISSION SNOMED Code(s): 742050391 Plan: 1. Continue symptomatic and supportive care 2. Pain medication per primary medicine 3. Continue IV hydration and 150 mL per hour 4. Antiemetics as needed 5. Protonix 40 mg daily 6. MRCP/MRI of the pancreas ordered and reviewed 7. Patient may have to liquid diet, will advance in the morning 8. Repeat CMP in morning 9. Patient to follow up with [facility] as scheduled on November 06 Thank you for this consultation, we will continue to follow Dr. Elvin Hutson I agree with the dictator's note, documented as a scribe by Madison Black.
[2020-10-30] MEDS: HYDROmorphone 1 MG/ML 1 ML SYRINGE IVP PRN ×8 (02:55→22:49)
[2020-10-30] MEDS: KETOROLAC 15 MG/ML 1 ML VIAL IVP PRN ×3 (03:59→17:28)
[2020-10-30] MEDS: SODIUM CHLORIDE 0.9% 1,000 ML IV SCH ×4 (06:15→22:50)
[2020-10-30] MEDS: PANTOPRAZOLE 40 MG TABLET PO SCH ×2 (06:16→17:53)
[2020-10-30 06:58] LABS: Basophils # (A) 0.1 k/uL (0-0.2); Basophils % (A) 1 %; Eosinophils # (A) 0.4 k/uL (0-0.7); Eosinophils % (A) 7 %; HCT 36.4 % (34.0-46.0); Lymphocytes # (A) 2.3 k/uL (1.0-4.8); Lymphocytes % (A) 40 %; MCH 32.7 pg (25.0-35.0); MCHC 32.5 g/dL (31.0-37.0); MCV 100.6 fL (80.0-100.0); Macrocytosis Slight; Mean Platelet Volume 7.4; Monocytes # (A) 0.3 k/uL (0-1.0); Monocytes % (A) 6 %; Neutrophils # (A) 2.4 k/uL (1.3-7.7); Neutrophils % (A) 42 %; Platelet Count 347 k/uL (150-450); RBC 3.62 m/uL (3.80-5.40); RDW 13.5 % (11.5-15.5); WBC 5.7 k/uL (3.8-10.6)
[2020-10-30 07:01] LABS: HGB 11.8 gm/dL (11.4-16.0)
[2020-10-30 07:13] LABS: ALT 32 U/L (4-34); AST 59 U/L (14-36); African American GFR (CKD) >90 (>60 ml/min/1.73 sqM); Albumin 2.9 g/dL (3.5-5.0); Alkaline Phosphatase 93 U/L (38-126); Anion Gap 7 mmol/L; Blood Urea Nitrogen 3 mg/dL (7-17); Calcium 9.1 mg/dL (8.4-10.2); Carbon Dioxide 21 mmol/L (22-30); Chloride 110 mmol/L (98-107); Glucose 111 mg/dL (74-99); Non-African American GFR(CKD) >90 (>60 ml/min/1.73 sqM); Sodium 138 mmol/L (137-145); Total Bilirubin 1.2 mg/dL (0.2-1.3)
[2020-10-30] MEDS: VORTIOXETINE HYDROBROMIDE 10 MG TABLET PO SCH (08:22)
[2020-10-30] MEDS: FOLIC ACID 1 MG TAB PO SCH (08:23)
[2020-10-30] MEDS: SPIRONOLACTONE 25 MG TAB PO SCH (08:23)
--- NOTE | 2020-10-30 10:10 | P.PN ---
Subjective Progress Note Date: 10/30/20 Principal diagnosis: Pancreatitis 35-year-old female who presented to the emergency department 2 days ago with acute onset of epigastric and right upper quadrant pain. She has a history of alcohol pancreatitis and has had multiple admissions over the past 1-2 months. The patient is scheduled for appointment with [facility] on November 06 for further evaluation and possible EUS. Today the patient states abdominal pain is improving, nausea and vomiting has improved. Repeat lipase 987. She did have a slight increase in her total bilirubin to 2.1, otherwise AST, ALT, alkaline phosphatase all improving. MRI of the pancreas show some fluid collection consistent with pancreatitis, no masses seen. No biliary dilation. He has seen and examined today she still having quite a bit of pain. She was requesting IV pain medication every 3 hours through the night. States she has some mild nausea but no vomiting. States she had some increased discomfort this morning after her right breast. She is still on full liquid diet. LFTs continue to improve. Objective - Vital Signs Vital signs: Vital Signs Temp 98.4 F 10/30/20 08:30 Pulse 81 10/30/20 08:30 Resp 18 10/30/20 08:30 BP 129/82 10/30/20 08:30 Pulse Ox 95 10/30/20 08:30 Intake & Output 10/29/20 10/30/20 10/30/20 18:59 06:59 18:59 Intake Total 2820 Balance 2820 Intake: Intake, IV Titration 1500 Amount Sodium Chloride 0.9% 1, 1500 000 ml @ 150 mls/hr IV . [facility] Rx#:[id number] Oral 1320 Other: Voiding Method Toilet # Voids 2 1 - Exam General appearance: The patient is alert, oriented, appears in no acute distress. HET: Head is normocephalic and atraumatic. Conjunctiva pink. Sclera anicteric. Neck: Supple without lymphadenopathy. Abdomen: Soft, right upper quadrant and epigastric tenderness, nondistended with bowel sounds. No guarding or rigidity. Extremities: Normal skin color and turgor. No pedal edema Skin: No rashes, no jaundice Neurological: No focal deficits. Alert and oriented 3. - Labs CBC & Chem 7: 10/30/20 06:44 10/30/20 06:44 Labs: Abnormal Lab Results - Last 24 Hours (Table) 10/30/20 10/30/20 Range/Units 06:44 06:44 RBC 3.62 L (3.80-5.40) m/uL MCV 100.6 H (80.0-100.0) fL Chloride 110 H (98-107) mmol/L Carbon Dioxide 21 L (22-30) mmol/L BUN 3 L (7-17) mg/dL Creatinine 0.39 L (0.52-1.04) mg/dL Glucose 111 H (74-99) mg/dL AST 59 H (14-36) U/L Total Protein 6.0 L (6.3-8.2) g/dL Albumin 2.9 L (3.5-5.0) g/dL Assessment and Plan (1) Abdominal pain Narrative/Plan: This is a 35-year-old female who presented to the emergency department with complaints of severe abdominal pain associated with nausea and vomiting she was noted to have an elevation in her amylase and lipase, 162 and 745 respectively. She also had elevation in her LFTs with a total bilirubin 1.6, alkaline phosphatase 128, AST 133, ALT 63. She has a history of recurrent pancreatitis and has been hospitalized 3 times in the last 1-2 months for severe abdominal pain. She has a history of alcohol abuse however states she has not had any alcohol in months. During her last admission she had an EGD and colonoscopy on 10/03/2020. EGD showed mild antral gastritis, colonoscopy showed a normal colon. Biopsy results showed duodenal, terminal ileum, and colonic epithelial lymphocytosis which can be features of celiac disease, versus infectious etiology, versus drug-induced. Patient had celiac panel on 10/01/2020 which was negative. On this admission she had a ultrasound of the gallbladder showing enlarged coarse heterogeneous liver consistent with hepatocellular disease, CBD prominent which was unchanged from CT on 09/20/2020. Plan will be to order an MRCP/MRI of the pancreas. Patient states she does have an appointment with [facility] however she is not sure when. MRI/MRCP showed fluid surrounding the pancreas consistent with pancreatitis. Current Visit: No Status: Acute Code(s): R10.9 - UNSPECIFIED ABDOMINAL PAIN SNOMED Code(s): 39833017 (2) Elevated LFTs Narrative/Plan: Improving Current Visit: Yes Status: Acute Code(s): R79.89 - OTHER SPECIFIED ABNORMAL FINDINGS OF BLOOD CHEMISTRY SNOMED Code(s): 530243569 (3) History of alcohol abuse Current Visit: Yes Status: Acute Code(s): F10.11 - ALCOHOL ABUSE, IN REMISSION SNOMED Code(s): 647499062 Plan: 1. Continue symptomatic and supportive care 2. Pain medication per primary medicine would recommend adding oral pain medication and IV medication for breakthrough pain 3. Continue IV hydration 4. Antiemetics as needed 5. Protonix 40 mg daily 6. MRCP/MRI of the pancreas ordered and reviewed 7. Continue full liquid diet for now, advance as tolerated 8. Encourage ambulation 9. Patient to follow up with [facility] as scheduled on November 06 Thank you for this consultation, we will continue to follow Dr. Elvin Hutson I agree with the dictator's note, documented as a scribe by Madison Black.
[2020-10-30] MEDS: clonazePAM 1 MG TAB PO PRN (22:55)
[2020-10-31] MEDS: HYDROmorphone 1 MG/ML 1 ML SYRINGE IVP PRN ×7 (02:55→21:57)
[2020-10-31] MEDS: SODIUM CHLORIDE 0.9% 1,000 ML IV SCH ×2 (06:06→14:18)
[2020-10-31] MEDS: PANTOPRAZOLE 40 MG TABLET PO SCH ×2 (06:12→17:48)
[2020-10-31] MEDS: KETOROLAC 15 MG/ML 1 ML VIAL IVP PRN ×3 (07:22→20:35)
[2020-10-31] MEDS: VORTIOXETINE HYDROBROMIDE 10 MG TABLET PO SCH (08:02)
[2020-10-31] MEDS: FOLIC ACID 1 MG TAB PO SCH (08:02)
[2020-10-31] MEDS: clonazePAM 1 MG TAB PO PRN ×2 (08:03→21:56)
[2020-10-31] MEDS: DICYCLOMINE 20 MG TAB PO PRN (08:03)
[2020-10-31] MEDS: SPIRONOLACTONE 25 MG TAB PO SCH (09:09)
--- NOTE | 2020-10-31 15:07 | P.PN ---
Subjective Progress Note Date: 10/31/20 Principal diagnosis: Pancreatitis 35-year-old female who presented to the emergency department 2 days ago with acute onset of epigastric and right upper quadrant pain. She has a history of alcohol pancreatitis and has had multiple admissions over the past 1-2 months. The patient is scheduled for appointment with [facility] on November 06 for further evaluation and possible EUS. Today the patient states abdominal pain is improving, nausea and vomiting has improved. Repeat lipase 987. She did have a slight increase in her total bilirubin to 2.1, otherwise AST, ALT, alkaline phosphatase all improving. MRI of the pancreas show some fluid collection consistent with pancreatitis, no masses seen. No biliary dilation. He has seen and examined today she still having quite a bit of pain. She was requesting IV pain medication every 3 hours through the night. States she has some mild nausea but no vomiting. States she had some increased discomfort this morning after her right breast. She is still on full liquid diet. LFTs continue to improve. Objective - Vital Signs Vital signs: Vital Signs Temp 98.8 F 10/31/20 02:00 Pulse 55 L 10/31/20 08:25 Resp 18 10/31/20 08:25 BP 155/99 10/31/20 08:25 Pulse Ox 95 10/31/20 08:25 Intake & Output 10/30/20 10/31/20 10/31/20 18:59 06:59 18:59 Intake Total 900 Balance 900 Intake: Oral 900 Other: Voiding Method Toilet # Voids 3 2 - Labs CBC & Chem 7: 10/30/20 06:44 10/30/20 06:44 Labs: Abnormal Lab Results - Last 24 Hours (Table) 10/30/20 Range/Units 06:44 Lipase 403 H (23-300) U/L Assessment and Plan (1) Abdominal pain Narrative/Plan: This is a 35-year-old female who presented to the emergency department with complaints of severe abdominal pain associated with nausea and vomiting she was noted to have an elevation in her amylase and lipase, 162 and 745 respectively. She also had elevation in her LFTs with a total bilirubin 1.6, alkaline phosphatase 128, AST 133, ALT 63. She has a history of recurrent pancreatitis and has been hospitalized 3 times in the last 1-2 months for severe abdominal pain. She has a history of alcohol abuse however states she has not had any alcohol in months. During her last admission she had an EGD and colonoscopy on 10/03/2020. EGD showed mild antral gastritis, colonoscopy showed a normal colon. Biopsy results showed duodenal, terminal ileum, and colonic epithelial lymphocytosis which can be features of celiac disease, versus infectious etiology, versus drug-induced. Patient had celiac panel on 10/01/2020 which was negative. On this admission she had a ultrasound of the gallbladder showing enlarged coarse heterogeneous liver consistent with hepatocellular disease, CBD prominent which was unchanged from CT on 09/20/2020. Plan will be to order an MRCP/MRI of the pancreas. Patient states she does have an appointment with [facility] however she is not sure when. MRI/MRCP showed fluid surrounding the pancreas consistent with pancreatitis. Current Visit: No Status: Acute Code(s): R10.9 - UNSPECIFIED ABDOMINAL PAIN SNOMED Code(s): 06276722 (2) Elevated LFTs Narrative/Plan: Improving Current Visit: Yes Status: Acute Code(s): R79.89 - OTHER SPECIFIED ABNORMAL FINDINGS OF BLOOD CHEMISTRY SNOMED Code(s): 579250546 (3) History of alcohol abuse Current Visit: Yes Status: Acute Code(s): F10.11 - ALCOHOL ABUSE, IN REMISSION SNOMED Code(s): 986894550 Plan: 1. Continue symptomatic and supportive care 2. Pain medication per primary medicine would recommend adding oral pain medication and IV medication for breakthrough pain 3. Continue IV hydration 4. Antiemetics as needed 5. Protonix 40 mg daily 6. MRCP/MRI of the pancreas ordered and reviewed 7. Resume back to full liquid diet 8. Encourage ambulation 9. Patient to follow up with [facility] as scheduled on November 06 10. Hold discharge until pain improves and patient unable to advance diet Thank you for this consultation, we will continue to follow Dr. Elvin Hutson I agree with the dictator's note, documented as a scribe by Madison Black.
--- NOTE | 2020-11-01 00:54 | P.PN ---
Subjective Progress Note Date: 10/29/20 Principal diagnosis: Acute recurrent pancreatitis with prior history of alcohol abuse Patient is a 35-year-old female with a known history of chronic alcoholic pancreatitis, GERD, gastric ulcers, anxiety and history of lupus and chronic pain, anxiety/depression and previous history of smoking presents to ER with complaints of abdominal pain is worse with nausea and vomiting for the past 1 to 2 days. Abdominal pain is mainly in the epigastric region. Denies any hematemesis. No melena. Patient was previously admitted to hospital and underwent EGD and colonoscopy on 10/03/2020 showed mild antral gastritis and colonoscopy was normal study. Denied any fever or chills. No chest pain or shortness of breath. KUB x-ray showed overall nonobstructive bowel gas pattern Ultrasound gallbladder showed enlarged coarse heterogeneous liver consistent with underlying hepatocellular disease most likely hepatic steatosis. Common bile duct is mildly prominent measuring 0.9 cm in diameter which is unchanged from most recent CT on 09/20/2020 Laboratory data showed WBC 11.4 hemoglobin 15.0 and platelets 539 BUN 7 creatinine 0.49 AST 133 ALT 68 and alk phos 128 Amylase 162 and lipase 147 Urinalysis is negative for infection 05/29/2020 Patient states that abdominal pain is better today. Still requiring IV Dilaudid. Still complains of nausea and no episodes of vomiting. Repeat lipase level is 987. Liver enzymes are improving. MRI of the pancreas was done today showed increase in retroperitoneal fluid bilaterally. Pancreatic margins are not well-defined. This is consistent with pancreatitis. This is a change compared to old exam. No dilation of intrahepatic bile ducts. Inflammatory changes also appeared new compared to CT of 09/20/2020. No suspicious pancreatic mass. Patient has been afebrile. No complaints of chest pain or shortness of breath. Laboratory data showed BUN 5 and creatinine 0.46 AST 52 ALT 35 alk phos 92 patient is being continued on IV hydration with normal saline. Current medications reviewed. Objective - Vital Signs Vital signs: Vital Signs Temp 98.4 F 10/29/20 20:00 Pulse 67 10/29/20 20:00 Resp 16 10/29/20 20:00 BP 136/90 10/29/20 20:00 Pulse Ox 96 10/29/20 20:00 Intake & Output 10/29/20 10/29/20 10/30/20 06:59 18:59 06:59 Intake Total 2820 Balance 2820 Intake: Intake, IV Titration 1500 Amount Sodium Chloride 0.9% 1, 1500 000 ml @ 150 mls/hr IV . Q6H40M [facility] Rx#:[id number] Oral 1320 Other: # Voids 1 2 2 - Exam PHYSICAL EXAMINATION: Patient is lying in the bed comfortably, no acute distress, awake alert and oriented.anxious. HEENT: Normocephalic. Neck is supple. Pupils reactive. Nostrils clear. Oral cavity is moist. Ears reveal no drainage. Neck reveals no JVD, carotid bruits, or thyromegaly. CHEST EXAMINATION: Trachea is central. Symmetrical expansion. Lung jimenez clear to auscultation and percussion. CARDIAC: Normal S1, S2 with no gallops. No murmurs ABDOMEN: Soft. Mild epigastric tenderness. No guarding or rigidity. , Bowel sounds normal. No organomegaly. No abdominal bruits. Extremities: reveal no edema. No clubbing or cyanosis Neurologically awake, alert, oriented x3 with well-coordinated movements. No focal deficits noted Skin: No rash or skin lesions. Psychiatric: Coperative. Nonsuicidal, anxious. Musculoskeletal: No joint swelling or deformity. Normal range of motion. - Labs CBC & Chem 7: 10/30/20 06:44 10/30/20 06:44 Labs: Abnormal Lab Results - Last 24 Hours (Table) 10/29/20 Range/Units 07:25 Chloride 109 H (98-107) mmol/L BUN 5 L (7-17) mg/dL Creatinine 0.46 L (0.52-1.04) mg/dL Total Bilirubin 2.1 H (0.2-1.3) mg/dL AST 52 H (14-36) U/L ALT 35 H (4-34) U/L Total Protein 6.1 L (6.3-8.2) g/dL Albumin 3.0 L (3.5-5.0) g/dL Assessment and Plan Assessment: Acute recurrent pancreatitis with prior history of alcohol abuse Severe abdominal pain associate with nausea and vomiting. Elevated liver enzymes CBD dilation 0.9 mm unchanged from previous CT. Macrocytosis likely due to history of alcohol abuse GERD Chronic pain Anxiety/depression Hepatic steatosis Prior history of smoking DVT prophylaxis with heparin subcu Plan: Patient will be can run aggressive IV hydration and nothing by mouth until nausea and vomiting improves. Patient recommended on IV Dilaudid 1 mg every 3 hours for pain. Patient is requesting IV pain medications. Replace electrolytes and monitor closely. GI was consulted. MRI of the liver was ordered. Showed inflammatory changes consistent with plantar fasciitis. No evidence of mass. Patient is still having pain. GI is on board. Continue to follow closely. Time with Patient: Greater than 30
--- NOTE | 2020-11-01 00:57 | P.PN ---
Subjective Progress Note Date: 10/30/20 Principal diagnosis: Acute recurrent pancreatitis with prior history of alcohol abuse Patient is a 35-year-old female with a known history of chronic alcoholic pancreatitis, GERD, gastric ulcers, anxiety and history of lupus and chronic pain, anxiety/depression and previous history of smoking presents to ER with complaints of abdominal pain is worse with nausea and vomiting for the past 1 to 2 days. Abdominal pain is mainly in the epigastric region. Denies any hematemesis. No melena. Patient was previously admitted to hospital and underwent EGD and colonoscopy on 10/03/2020 showed mild antral gastritis and colonoscopy was normal study. Denied any fever or chills. No chest pain or shortness of breath. KUB x-ray showed overall nonobstructive bowel gas pattern Ultrasound gallbladder showed enlarged coarse heterogeneous liver consistent with underlying hepatocellular disease most likely hepatic steatosis. Common bile duct is mildly prominent measuring 0.9 cm in diameter which is unchanged from most recent CT on 09/20/2020 Laboratory data showed WBC 11.4 hemoglobin 15.0 and platelets 539 BUN 7 creatinine 0.49 AST 133 ALT 68 and alk phos 128 Amylase 162 and lipase 147 Urinalysis is negative for infection 05/29/2020 Patient states that abdominal pain is better today. Still requiring IV Dilaudid. Still complains of nausea and no episodes of vomiting. Repeat lipase level is 987. Liver enzymes are improving. MRI of the pancreas was done today showed increase in retroperitoneal fluid bilaterally. Pancreatic margins are not well-defined. This is consistent with pancreatitis. This is a change compared to old exam. No dilation of intrahepatic bile ducts. Inflammatory changes also appeared new compared to CT of 09/20/2020. No suspicious pancreatic mass. Patient has been afebrile. No complaints of chest pain or shortness of breath. Laboratory data showed BUN 5 and creatinine 0.46 AST 52 ALT 35 alk phos 92 patient is being continued on IV hydration with normal saline. 10/30/2020 Patient states that her abdominal pain is still there and no improvement from yesterday. No complaints of chest pain or shortness of breath. Patient is requ esting pain medications [id number]. Afebrile. No diarrhea. Patient was started on full liquid diet. Laboratory data showed WBC 5.7 hemoglobin 11.8 and platelets 347 AST 59 ALT 32 alk phos 93 and lipase level trending down to 403. Gastroenterology is following. Current medications reviewed. Objective - Vital Signs Vital signs: Vital Signs Temp 97.9 F 10/30/20 14:33 Pulse 81 10/30/20 14:33 Resp 18 10/30/20 14:33 BP 129/81 10/30/20 14:33 Pulse Ox 95 10/30/20 14:33 Intake & Output 10/29/20 10/30/20 10/30/20 18:59 06:59 18:59 Intake Total 2820 900 Balance 2820 900 Intake: Intake, IV Titration 1500 Amount Sodium Chloride 0.9% 1, 1500 000 ml @ 150 mls/hr IV . Q6H40M [facility] Rx#:[id number] Oral 1320 900 Other: Voiding Method Toilet # Voids 2 1 3 - Exam PHYSICAL EXAMINATION: Patient is lying in the bed comfortably, no acute distress, awake alert and oriented.anxious. HEENT: Normocephalic. Neck is supple. Pupils reactive. Nostrils clear. Oral cavity is moist. Ears reveal no drainage. Neck reveals no JVD, carotid bruits, or thyromegaly. CHEST EXAMINATION: Trachea is central. Symmetrical expansion. Lung jimenez clear to auscultation and percussion. CARDIAC: Normal S1, S2 with no gallops. No murmurs ABDOMEN: Soft. epigastric tenderness. No guarding or rigidity. , Bowel sounds normal. No organomegaly. No abdominal bruits. Extremities: reveal no edema. No clubbing or cyanosis Neurologically awake, alert, oriented x3 with well-coordinated movements. No focal deficits noted Skin: No rash or skin lesions. Psychiatric: Coperative. Nonsuicidal, anxious. Musculoskeletal: No joint swelling or deformity. Normal range of motion. - Labs CBC & Chem 7: 10/30/20 06:44 10/30/20 06:44 Labs: Abnormal Lab Results - Last 24 Hours (Table) 10/30/20 10/30/20 10/30/20 Range/Units 06:44 06:44 06:44 RBC 3.62 L (3.80-5.40) m/uL MCV 100.6 H (80.0-100.0) fL Chloride 110 H (98-107) mmol/L Carbon Dioxide 21 L (22-30) mmol/L BUN 3 L (7-17) mg/dL Creatinine 0.39 L (0.52-1.04) mg/dL Glucose 111 H (74-99) mg/dL AST 59 H (14-36) U/L Total Protein 6.0 L (6.3-8.2) g/dL Albumin 2.9 L (3.5-5.0) g/dL Lipase 403 H (23-300) U/L Assessment and Plan Assessment: Acute recurrent pancreatitis with prior history of alcohol abuse Severe abdominal pain associate with nausea and vomiting. Elevated liver enzymes CBD dilation 0.9 mm unchanged from previous CT. Macrocytosis likely due to history of alcohol abuse GERD Chronic pain Anxiety/depression Hepatic steatosis Prior history of smoking DVT prophylaxis with heparin subcu Plan: Patient will be can run aggressive IV hydration and nothing by mouth until nausea and vomiting improves. Patient recommended on IV Dilaudid 1 mg every 3 hours for pain. Also on Toradol IV. Patient is requesting IV pain medications round the clock. Replace electrolytes and monitor closely. GI was consulted. MRI of the liver was ordered. Showed inflammatory changes consistent with plantar fasciitis. No evidence of mass. Patient is still having pain. GI is on board. Continue to follow closely.
--- NOTE | 2020-11-01 00:58 | P.PN ---
Subjective Progress Note Date: 10/31/20 Principal diagnosis: Acute recurrent pancreatitis with prior history of alcohol abuse Patient is a 35-year-old female with a known history of chronic alcoholic pancreatitis, GERD, gastric ulcers, anxiety and history of lupus and chronic pain, anxiety/depression and previous history of smoking presents to ER with complaints of abdominal pain is worse with nausea and vomiting for the past 1 to 2 days. Abdominal pain is mainly in the epigastric region. Denies any hematemesis. No melena. Patient was previously admitted to hospital and underwent EGD and colonoscopy on 10/03/2020 showed mild antral gastritis and colonoscopy was normal study. Denied any fever or chills. No chest pain or shortness of breath. KUB x-ray showed overall nonobstructive bowel gas pattern Ultrasound gallbladder showed enlarged coarse heterogeneous liver consistent with underlying hepatocellular disease most likely hepatic steatosis. Common bile duct is mildly prominent measuring 0.9 cm in diameter which is unchanged from most recent CT on 09/20/2020 Laboratory data showed WBC 11.4 hemoglobin 15.0 and platelets 539 BUN 7 creatinine 0.49 AST 133 ALT 68 and alk phos 128 Amylase 162 and lipase 147 Urinalysis is negative for infection 10/29/2020 Patient states that abdominal pain is better today. Still requiring IV Dilaudid. Still complains of nausea and no episodes of vomiting. Repeat lipase level is 987. Liver enzymes are improving. MRI of the pancreas was done today showed increase in retroperitoneal fluid bilaterally. Pancreatic margins are not well-defined. This is consistent with pancreatitis. This is a change compared to old exam. No dilation of intrahepatic bile ducts. Inflammatory changes also appeared new compared to CT of 09/20/2020. No suspicious pancreatic mass. Patient has been afebrile. No complaints of chest pain or shortness of breath. Laboratory data showed BUN 5 and creatinine 0.46 AST 52 ALT 35 alk phos 92 patient is being continued on IV hydration with normal saline. 10/30/2020 Patient states that her abdominal pain is still there and no improvement from yesterday. No complaints of chest pain or shortness of breath. Patient is requesting pain medications [id number]. Afebrile. No diarrhea. Patient was started on full liquid diet. Laboratory data showed WBC 5.7 hemoglobin 11.8 and platelets 347 AST 59 ALT 32 alk phos 93 and lipase level trending down to 403. Gastroenterology is following. 10/31/2020 Patient states that she had a rough night. Still requiring IV pain medications every 3 hours. Complains of nausea no episodes of vomiting. Tolerating full liquid diet. Patient is currently sitting in the chair with family. Laboratory showed improvement in liver function tests and lipase level. GI is on board. Patient is afebrile. No chest pain or shortness breath. No cough or sputum production. Current medications reviewed. Objective - Vital Signs Vital signs: Vital Signs Temp 99.4 F 10/31/20 19:05 Pulse 57 L 10/31/20 19:05 Resp 16 10/31/20 19:05 BP 138/98 10/31/20 19:05 Pulse Ox 97 10/31/20 19:05 Intake & Output 10/31/20 10/31/20 11/01/20 06:59 18:59 06:59 Intake Total 3540 Balance 3540 Intake: Intake, IV Titration 1500 Amount Sodium Chloride 0.9% 1, 1500 000 ml @ 150 mls/hr IV . Q6H40M [facility] Rx#:[id number] Oral 2039 Other: # Voids 2 4 - Exam PHYSICAL EXAMINATION: Patient is lying in the bed comfortably, no acute distress, awake alert and oriented.anxious. HEENT: Normocephalic. Neck is supple. Pupils reactive. Nostrils clear. Oral cavity is moist. Ears reveal no drainage. Neck reveals no JVD, carotid bruits, or thyromegaly. CHEST EXAMINATION: Trachea is central. Symmetrical expansion. Lung jimenez clear to auscultation and percussion. CARDIAC: Normal S1, S2 with no gallops. No murmurs ABDOMEN: Soft. epigastric tenderness. No guarding or rigidity. , Bowel sounds normal. No organomegaly. No abdominal bruits. Extremities: reveal no edema. No clubbing or cyanosis Neurologically awake, alert, oriented x3 with well-coordinated movements. No focal deficits noted Skin: No rash or skin lesions. Psychiatric: Coperative. Nonsuicidal, anxious. Musculoskeletal: No joint swelling or deformity. Normal range of motion. - Labs CBC & Chem 7: 10/30/20 06:44 10/30/20 06:44 Assessment and Plan Assessment: Acute recurrent pancreatitis with prior history of alcohol abuse Severe abdominal pain associate with nausea and vomiting. Elevated liver enzymes CBD dilation 0.9 mm unchanged from previous CT. Macrocytosis likely due to history of alcohol abuse GERD Chronic pain Anxiety/depression Hepatic steatosis Prior history of smoking DVT prophylaxis with heparin subcu Plan: Patient will be can run aggressive IV hydration and nothing by mouth until nausea and vomiting improves. Patient recommended on IV Dilaudid 1 mg every 3 hours for pain. Also on Toradol IV. Patient is requesting IV pain medications round the clock. Replace electrolytes and monitor closely. GI was consulted. MRI of the liver was ordered. Showed inflammatory changes consistent with plantar fasciitis. No evidence of mass. Patient is still having pain. GI is on board. Continue to follow closely. Time with Patient: Greater than 30
[2020-11-01] MEDS: HYDROmorphone 1 MG/ML 1 ML SYRINGE IVP PRN ×5 (01:06→15:58)
[2020-11-01] MEDS: SODIUM CHLORIDE 0.9% 1,000 ML IV SCH ×4 (01:07→17:22)
[2020-11-01] MEDS: KETOROLAC 15 MG/ML 1 ML VIAL IVP PRN ×3 (05:49→21:37)
[2020-11-01] MEDS: PANTOPRAZOLE 40 MG TABLET PO SCH ×2 (06:00→18:07)
[2020-11-01 06:05] LABS: ALT 36 U/L (4-34); AST 84 U/L (14-36); African American GFR (CKD) >90 (>60 ml/min/1.73 sqM); Albumin 3.4 g/dL (3.5-5.0); Alkaline Phosphatase 93 U/L (38-126); Anion Gap 8 mmol/L; Blood Urea Nitrogen 3 mg/dL (7-17); Calcium 9.5 mg/dL (8.4-10.2); Carbon Dioxide 23 mmol/L (22-30); Chloride 108 mmol/L (98-107); Glucose 120 mg/dL (74-99); Non-African American GFR(CKD) >90 (>60 ml/min/1.73 sqM); Potassium 4.1 mmol/L (3.5-5.1); Sodium 139 mmol/L (137-145); Total Protein 6.5 g/dL (6.3-8.2)
[2020-11-01 06:19] LABS: Basophils # (A) 0.1 k/uL (0-0.2); Basophils % (A) 1 %; Eosinophils # (A) 0.4 k/uL (0-0.7); Eosinophils % (A) 6 %; HCT 35.6 % (34.0-46.0); HGB 11.5 gm/dL (11.4-16.0); Lymphocytes # (A) 2.1 k/uL (1.0-4.8); Lymphocytes % (A) 32 %; MCH 32.6 pg (25.0-35.0); MCHC 32.4 g/dL (31.0-37.0); MCV 100.6 fL (80.0-100.0); Macrocytosis Slight; Mean Platelet Volume 7.5; Monocytes # (A) 0.6 k/uL (0-1.0); Monocytes % (A) 9 %; Neutrophils # (A) 3.2 k/uL (1.3-7.7); Neutrophils % (A) 50 %; Platelet Count 331 k/uL (150-450); RBC 3.54 m/uL (3.80-5.40); RDW 13.9 % (11.5-15.5); WBC 6.4 k/uL (3.8-10.6)
[2020-11-01] MEDS: FOLIC ACID 1 MG TAB PO SCH (10:22)
[2020-11-01] MEDS: SPIRONOLACTONE 25 MG TAB PO SCH (10:22)
[2020-11-01] MEDS: VORTIOXETINE HYDROBROMIDE 10 MG TABLET PO SCH (10:23)
[2020-11-01 11:02] VITALS: BMI 30.2
[2020-11-01] MEDS ORDERED: BACLOFEN 10 MG TAB PO PRN (12:22)
--- NOTE | 2020-11-01 13:34 | P.PN ---
Subjective Progress Note Date: 11/01/20 Principal diagnosis: Pancreatitis 35-year-old female who presented to the emergency department 2 days ago with acute onset of epigastric and right upper quadrant pain. She has a history of alcohol pancreatitis and has had multiple admissions over the past 1-2 months. The patient is scheduled for appointment with [facility] on November 06 for further evaluation and possible EUS. Today the patient states abdominal pain is improving, nausea and vomiting has improved. Repeat lipase 987. She did have a slight increase in her total bilirubin to 2.1, otherwise AST, ALT, alkaline phosphatase all improving. MRI of the pancreas show some fluid collection consistent with pancreatitis, no masses seen. No biliary dilation. Patient seen and examined this morning states that abdominal pain is improved some. She denies any vomiting, has some mild nausea through the night. States her pain is worse at night and still requiring IV pain medication every 3 hours. Bowel movements have been normal. LFTs are stable. Objective - Vital Signs Vital signs: Vital Signs Temp 98 F 11/01/20 01:10 Pulse 62 11/01/20 01:10 Resp 18 11/01/20 01:10 BP 140/85 11/01/20 01:10 Pulse Ox 97 11/01/20 01:10 Intake & Output 10/31/20 11/01/20 11/01/20 18:59 06:59 18:59 Intake Total 3540 Balance 3540 Intake: Intake, IV Titration 1500 Amount Sodium Chloride 0.9% 1, 1500 000 ml @ 150 mls/hr IV . Q6H40M [facility] Rx#:[id number] Oral 2040 Other: # Voids 4 3 - Exam General appearance: The patient is alert, oriented, appears in no acute distress. HET: Head is normocephalic and atraumatic. Conjunctiva pink. Sclera anicteric. Neck: Supple without lymphadenopathy. Abdomen: Soft, right upper quadrant and epigastric tenderness, with some improvement, nondistended with bowel sounds. No guarding or rigidity. Extremities: Normal skin color and turgor. No pedal edema Skin: No rashes, no jaundice Neurological: No focal deficits. Alert and oriented 3. - Labs CBC & Chem 7: 11/01/20 05:42 11/01/20 05:42 Labs: Abnormal Lab Results - Last 24 Hours (Table) 11/01/20 11/01/20 Range/Units 05:42 05:42 RBC 3.54 L (3.80-5.40) m/uL MCV 100.6 H (80.0-100.0) fL Chloride 108 H (98-107) mmol/L BUN 3 L (7-17) mg/dL Creatinine 0.45 L (0.52-1.04) mg/dL Glucose 120 H (74-99) mg/dL AST 84 H (14-36) U/L ALT 36 H (4-34) U/L Albumin 3.4 L (3.5-5.0) g/dL Assessment and Plan (1) Abdominal pain Narrative/Plan: This is a 35-year-old female who presented to the emergency department with complaints of severe abdominal pain associated with nausea and vomiting she was noted to have an elevation in her amylase and lipase, 162 and 745 respectively. She also had elevation in her LFTs with a total bilirubin 1.6, alkaline phosphatase 128, AST 133, ALT 63. She has a history of recurrent pancreatitis and has been hospitalized 3 times in the last 1-2 months for severe abdominal pain. She has a history of alcohol abuse however states she has not had any alcohol in months. During her last admission she had an EGD and colonoscopy on 10/03/2020. EGD showed mild antral gastritis, colonoscopy showed a normal colon. Biopsy results showed duodenal, terminal ileum, and colonic epithelial lymphocytosis which can be features of celiac disease, versus infectious etiology, versus drug-induced. Patient had celiac panel on 10/01/2020 which was negative. On this admission she had a ultrasound of the gallbladder showing enlarged coarse heterogeneous liver consistent with hepatocellular disease, CBD prominent which was unchanged from CT on 09/20/2020. Plan will be to order an MRCP/MRI of the pancreas. Patient states she does have an appointment with [facility] however she is not sure when. MRI/MRCP showed fluid surrounding the pancreas consistent with pancreatitis. Current Visit: No Status: Acute Code(s): R10.9 - UNSPECIFIED ABDOMINAL PAIN SNOMED Code(s): 84932309 (2) Elevated LFTs Narrative/Plan: Improving Current Visit: Yes Status: Acute Code(s): R79.89 - OTHER SPECIFIED ABNORMAL FINDINGS OF BLOOD CHEMISTRY SNOMED Code(s): 547401812 (3) History of alcohol abuse Current Visit: Yes Status: Acute Code(s): F10.11 - ALCOHOL ABUSE, IN REMISSION SNOMED Code(s): 142543807 Plan: 1. Continue symptomatic and supportive care 2. Pain medication per primary medicine would recommend adding oral pain medication and IV medication for breakthrough pain 3. Antiemetics as needed 4. Protonix 40 mg daily 5. MRCP/MRI of the pancreas ordered and reviewed 6. Advance diet as tolerated to low fat 7. Encourage ambulation 8. Patient to follow up with [facility] as scheduled on November 06 9. Patient may be discharged if tolerating diet and pain remains controlled Thank you for this consultation, we will continue to follow Dr. Elvin Hutson I agree with the dictator's note, documented as a scribe by Madison Black.
[2020-11-01] MEDS: Acetaminophen-Codeine 300-30mg TAB PO PRN ×2 (13:39→23:33)
[2020-11-01] MEDS: clonazePAM 1 MG TAB PO PRN (14:39)
--- NOTE | 2020-11-01 15:04 | P.PN ---
Subjective Progress Note Date: 11/01/20 Acute recurrent pancreatitis with prior history of alcohol abuse Patient is a 35-year-old female with a known history of chronic alcoholic pancreatitis, GERD, gastric ulcers, anxiety and history of lupus and chronic pain, anxiety/depression and previous history of smoking presents to ER with complaints of abdominal pain is worse with nausea and vomiting for the past 1 to 2 days. Abdominal pain is mainly in the epigastric region. Denies any hematemesis. No melena. Patient was previously admitted to hospital and underwent EGD and colonoscopy on 10/03/2020 showed mild antral gastritis and colonoscopy was normal study. Denied any fever or chills. No chest pain or shortness of breath. KUB x-ray showed overall nonobstructive bowel gas pattern Ultrasound gallbladder showed enlarged coarse heterogeneous liver consistent with underlying hepatocellular disease most likely hepatic steatosis. Common bile duct is mildly prominent measuring 0.9 cm in diameter which is unchanged from most recent CT on 09/20/2020 Laboratory data showed WBC 11.4 hemoglobin 15.0 and platelets 539 BUN 7 creatinine 0.49 AST 133 ALT 68 and alk phos 128 Amylase 162 and lipase 147 Urinalysis is negative for infection 10/29/2020 Patient states that abdominal pain is better today. Still requiring IV Dilaudid. Still complains of nausea and no episodes of vomiting. Repeat lipase level is 987. Liver enzymes are improving. MRI of the pancreas was done today showed increase in retroperitoneal fluid bilaterally. Pancreatic margins are not well-defined. This is consistent with pancreatitis. This is a change compared to old exam. No dilation of intrahepatic bile ducts. Inflammatory changes also appeared new compared to CT of 09/20/2020. No suspicious pancreatic mass. Patient has been afebrile. No complaints of chest pain or shortness of breath. Laboratory data showed BUN 5 and creatinine 0.46 AST 52 ALT 35 alk phos 92 patient is being continued on IV hydration with normal saline. 10/30/2020 Patient states that her abdominal pain is still there and no improvement from yesterday. No complaints of chest pain or shortness of breath. Patient is requesting pain medications [id number]. Afebrile. No diarrhea. Patient was started on full liquid diet. Laboratory data showed WBC 5.7 hemoglobin 11.8 and platelets 347 AST 59 ALT 32 alk phos 93 and lipase level trending down to 403. Gastroenterology is following. 10/31/2020 Patient states that she had a rough night. Still requiring IV pain medications every 3 hours. Complains of nausea no episodes of vomiting. Tolerating full liquid diet. Patient is currently sitting in the chair with family. Laboratory showed improvement in liver function tests and lipase level. GI is on board. Patient is afebrile. No chest pain or shortness breath. No cough or sputum production. 11/01/2020 Patient is seen and evaluated in follow-up this morning and continues to have abdominal pain and states her pain increases about every 2-1/2 hours after IV pain medication is given requiring more. Patient continues with nausea and epigastric discomfort with no reports of vomiting noted. Patient diet being advanced to low fiber and tolerated though has continued abdominal pain. Have Resumed oral pain medications and increase the interval of IV Dilaudid and will monitor closely. White blood count within normal limits at 6.4 and hemoglobin is 11.5. Sodium is 139 with a potassium 4.1 current creatinine is 0.45. Review of systems: Constitutional: No reports of fatigue, fever, or chills Cardiovascular: No reports of chest pain or palpitations Respiratory: No reports of shortness of breath or cough GI: Reports intermittent nausea, no reports of vomiting, or diarrhea, reports continued epigastric abdominal discomfort : No reports of dysuria or retention Neurovascular: No reports of weakness or numbness All medications have been reviewed Objective - Vital Signs Vital signs: Vital Signs Temp 98 F 11/01/20 01:10 Pulse 62 11/01/20 01:10 Resp 18 11/01/20 01:10 BP 140/85 11/01/20 01:10 Pulse Ox 97 11/01/20 01:10 Intake & Output 10/31/20 11/01/20 11/01/20 18:59 06:59 18:59 Intake Total 3540 Balance 3540 Intake: Intake, IV Titration 1500 Amount Sodium Chloride 0.9% 1, 1500 000 ml @ 150 mls/hr IV . Q6H40M [facility] Rx#:[id number] Oral 2039 Other: # Voids 4 3 - Exam Patient is lying in the bed comfortably, no acute distress, awake alert and oriented.anxious. HEENT: Normocephalic. Neck is supple. Pupils reactive. Nostrils clear. Oral cavity is moist. Ears reveal no drainage. Neck reveals no JVD, carotid bruits, or thyromegaly. CHEST EXAMINATION: Trachea is central. Symmetrical expansion. Lung jimenez clear to auscultation and percussion. CARDIAC: Normal S1, S2 with no gallops. No murmurs ABDOMEN: Soft. epigastric tenderness noted on palpation. No guarding or rigidity. Bowel sounds normal. No organomegaly. No abdominal bruits. Extremities: reveal no edema. No clubbing or cyanosis Neurologically awake, alert, oriented x3 with well-coordinated movements. No focal deficits noted Skin: No rash or skin lesions. Psychiatric: Cooperative. Non-suicidal, anxious at times. Musculoskeletal: No joint swelling or deformity. Normal range of motion. - Labs CBC & Chem 7: 11/01/20 05:42 11/01/20 05:42 Labs: Abnormal Lab Results - Last 24 Hours (Table) 11/01/20 11/01/20 Range/Units 05:42 05:42 RBC 3.54 L (3.80-5.40) m/uL MCV 100.6 H (80.0-100.0) fL Chloride 108 H (98-107) mmol/L BUN 3 L (7-17) mg/dL Creatinine 0.45 L (0.52-1.04) mg/dL Glucose 120 H (74-99) mg/dL AST 84 H (14-36) U/L ALT 36 H (4-34) U/L Albumin 3.4 L (3.5-5.0) g/dL Assessment and Plan Assessment: Acute recurrent pancreatitis with prior history of alcohol abuse Severe abdominal pain associate with nausea and vomiting. Elevated liver enzymes CBD dilation 0.9 mm unchanged from previous CT. Macrocytosis likely due to history of alcohol abuse GERD Chronic pain Anxiety/depression Hepatic steatosis Prior history of smoking DVT prophylaxis with heparin subcu GI prophylaxis Full code Plan: Patient diet being advanced today to low fiber and tolerating although continuing to have intermittent periods of nausea with severe epigastric abdominal discomfort and continues to request IV pain medications. Resumed normal home medications and discussed with her about transitioning to oral pain medications as she will not be going home with IV pain medications. Patient verbalized understanding. Continue with IV hydration and continue to monitor closely. GI also following. Will repeat a.m. labs. Further recommendations to follow based on the clinical course of the patient. Prognosis is guarded.
[2020-11-01 19:35] VITALS: RESP 16
[2020-11-02] MEDS: HYDROmorphone 1 MG/ML 1 ML SYRINGE IVP PRN (00:38)
[2020-11-02] MEDS: SODIUM CHLORIDE 0.9% 1,000 ML IV SCH ×2 (00:38→06:06)
[2020-11-02] MEDS: PANTOPRAZOLE 40 MG TABLET PO SCH (06:05)
[2020-11-02] MEDS: KETOROLAC 15 MG/ML 1 ML VIAL IVP PRN (06:05)
[2020-11-02] MEDS: Acetaminophen-Codeine 300-30mg TAB PO PRN (07:22)
[2020-11-02 08:17] VITALS: BP 132/88; PULSE 65; TEMP 99
[2020-11-02] MEDS: FOLIC ACID 1 MG TAB PO SCH (08:37)
[2020-11-02] MEDS: SPIRONOLACTONE 25 MG TAB PO SCH (08:37)
[2020-11-02] MEDS: VORTIOXETINE HYDROBROMIDE 10 MG TABLET PO SCH (08:37)
== END 2020-11-02 11:14 | disposition home or self-care (01) | DRG 440 ==
LOC: EC 13:57 → 1SOBS 19:09 → OBSVTOIN 19:09 → 6PED 20:38
PROVIDERS: ADMIT Internal Medicine; ATTEND Internal Medicine
DX: K85.20 Alcohol induced acute pancreatitis without necrosis or infection (principal); D75.89 Other specified diseases of blood and blood-forming organs; K86.0 Alcohol-induced chronic pancreatitis; F10.10 Alcohol abuse, uncomplicated; F32.9 Major depressive disorder, single episode, unspecified; F41.9 Anxiety disorder, unspecified; G89.29 Other chronic pain; K21.9 Gastro-esophageal reflux disease without esophagitis; K29.70 Gastritis, unspecified, without bleeding; K52.9 Noninfective gastroenteritis and colitis, unspecified; M32.9 Systemic lupus erythematosus, unspecified; K76.0 Fatty (change of) liver, not elsewhere classified; K83.8 Other specified diseases of biliary tract; K90.0 Celiac disease; Z87.19 Personal history of other diseases of the digestive system; Z87.01 Personal history of pneumonia (recurrent); Z79.899 Other long term (current) drug therapy; Z87.11 Personal history of peptic ulcer disease; Z87.891 Personal history of nicotine dependence; Z88.5 Allergy status to narcotic agent
CPT/HCPCS: 36415; 74018; 74183; 76705; 80053; 81001; 81025; 82150; 83690; 85025; 96361; 96374; 96375; 96376; 99285

== ENCOUNTER 2020-11-02 16:13 | Inpatient (IN) | payer OTHER ==
[2020-11-02] MEDS ORDERED: SODIUM CHLORIDE 0.9% 1,000 ML IV STA ×2 (17:06→19:42)
[2020-11-02] MEDS ORDERED: ONDANSETRON 4 MG/2 ML VIAL IVP STA (17:06)
[2020-11-02] MEDS ORDERED: ACETAMINOPHEN IV (For NPO) 1,000 MG in EMPTY BAG 1 BAG IVPB STA (17:07)
[2020-11-02] MEDS ORDERED: HYDROmorphone 1 MG/ML 1 ML SYRINGE IVP STA ×2 (17:07→19:03)
[2020-11-02 17:52] LABS: Appearance,Urine Cloudy (Clear); Bacteria,Urine Rare /hpf; Bilirubin,Urine Negative (Negative); Blood,Urine Small (Negative); Color,Urine Yellow; Glucose,Urine (UA) Negative (Negative); Ketones,Urine Negative (Negative); Leukocyte Esterase,Urine Moderate (Negative); Nitrite,Urine Positive (Negative); PH, Urine 5.5 (5.0-8.0); Protein,Urine Trace (Negative); Specific Gravity,Urine 1.015 (1.001-1.035); Squamous Epithelial Cell,Urine 1 /hpf (0-4); Urobilinogen,Urine <2.0 mg/dL (<2.0); WBC,Urine 1 /hpf (0-5)
[2020-11-02 17:59] LABS: Basophils % (A) 0 %; Eosinophils # (A) 0.1 k/uL (0-0.7); Eosinophils % (A) 1 %; HCT 36.4 % (34.0-46.0); HGB 12.6 gm/dL (11.4-16.0); Lymphocytes # (A) 0.5 k/uL (1.0-4.8); Lymphocytes % (A) 6 %; MCH 33.4 pg (25.0-35.0); MCHC 34.6 g/dL (31.0-37.0); MCV 96.7 fL (80.0-100.0); Mean Platelet Volume 7.5; Monocytes # (A) 0.6 k/uL (0-1.0); Monocytes % (A) 7 %; Neutrophils # (A) 7.3 k/uL (1.3-7.7); Neutrophils % (A) 85 %; Platelet Count 313 k/uL (150-450); RBC 3.77 m/uL (3.80-5.40); RDW 14.4 % (11.5-15.5); WBC 8.6 k/uL (3.8-10.6)
[2020-11-02 18:02] LABS: ALT 30 U/L (4-34); AST 66 U/L (14-36); African American GFR (CKD) >90 (>60 ml/min/1.73 sqM); Albumin 4.1 g/dL (3.5-5.0); Alkaline Phosphatase 105 U/L (38-126); Amylase 39 U/L (30-110); Anion Gap 13 mmol/L; Blood Urea Nitrogen 8 mg/dL (7-17); Calcium 10.3 mg/dL (8.4-10.2); Carbon Dioxide 21 mmol/L (22-30); Chloride 100 mmol/L (98-107); Glucose 116 mg/dL (74-99); Lipase 160 U/L (23-300); Non-African American GFR(CKD) >90 (>60 ml/min/1.73 sqM); Sodium 134 mmol/L (137-145); Total Protein 7.4 g/dL (6.3-8.2)
[2020-11-02 18:09] LABS: Potassium 3.3 mmol/L (3.5-5.1)
--- NOTE | 2020-11-02 18:30 | US ---
EXAMINATION TYPE: US gallbladder DATE OF EXAM: 11/02/2020 COMPARISON: 10/27/2020 CLINICAL HISTORY: pain. just left hospital this am after being treated for pancreatitis, now has 104 fever and abd bloating and pain EXAM MEASUREMENTS: Liver Length: 22.7 cm Gallbladder Wall: 0.1 cm CBD: 1.0 cm Right Kidney: 12.5 x 4.8 x 4.1 cm Pancreas: limited view due to bowel gas Liver: enlarged, coarse and difficult to penetrate Gallbladder: wnl Evidence for sonographic Bro's sign: no CBD: dilated with no obvious obstruction Right Kidney: wnl IMPRESSION: Large common bile duct could relate to gallbladder dysfunction. No gallstones seen. Enlarged liver co nsistent with fatty infiltration. No sign of pancreatic mass. No free fluid.
[2020-11-02] MEDS ORDERED: POTASSIUM CHLORIDE ER 20 MEQ TAB.ER PO STA (18:39)
[2020-11-02] MEDS ORDERED: PIPERACILLIN-TAZOBACTAM 3.375 GM in SODIUM CHLORIDE 0.9% 100 ML IVPB STA (18:54)
--- NOTE | 2020-11-02 19:18 | XR ---
EXAMINATION TYPE: XR chest 2V DATE OF EXAM: 11/02/2020 COMPARISON: 09/19/2020 HISTORY: Fever TECHNIQUE: 2 views FINDINGS: There is some mild linear density at the lung bases. Heart size is normal. There are no hil ar masses. Mediastinum is normal. Bony thorax is intact. IMPRESSION: There is some mild linear infiltrate and atelectasis at the lung bases which is increased compared to old exam.
[2020-11-02] MEDS ORDERED: NALOXONE 0.4 MG/ML 1 ML VIAL IV PRN (19:43)
[2020-11-02] MEDS ORDERED: ACETAMINOPHEN TAB 325 MG TAB PO PRN (19:43)
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
[2020-11-02] MEDS: SODIUM CHLORIDE 0.9% 1,000 ML IV SCH (20:02)
[2020-11-02] MEDS: HYDROmorphone 1 MG/ML 1 ML SYRINGE IVP PRN (23:36)
[2020-11-03] MEDS: PIPERACILLIN-TAZOBACTAM 3.375 GM in SODIUM CHLORIDE 0.9% 100 ML IVPB SCH ×3 (03:49→19:21)
[2020-11-03] MEDS: HYDROmorphone 1 MG/ML 1 ML SYRINGE IVP PRN ×7 (03:55→23:56)
[2020-11-03] MEDS: SODIUM CHLORIDE 0.9% 1,000 ML IV SCH ×3 (06:58→19:22)
[2020-11-03] MEDS ORDERED: DICYCLOMINE 20 MG TAB PO PRN (17:29)
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
[2020-11-03] MEDS: clonazePAM 1 MG TAB PO PRN (20:55)
[2020-11-03] MEDS: PANTOPRAZOLE 40 MG TABLET PO SCH (20:55)
[2020-11-03] MEDS: HEPARIN SODIUM,PORCINE/PF 5,000 UNIT/0.5 ML SYRINGE SQ SCH (23:51)
[2020-11-04] MEDS: PIPERACILLIN-TAZOBACTAM 3.375 GM in SODIUM CHLORIDE 0.9% 100 ML IVPB SCH ×3 (03:51→20:45)
[2020-11-04] MEDS: HYDROmorphone 1 MG/ML 1 ML SYRINGE IVP PRN ×4 (03:52→13:08)
[2020-11-04] MEDS: SODIUM CHLORIDE 0.9% 1,000 ML IV SCH ×3 (03:55→16:38)
[2020-11-04] MEDS: HEPARIN SODIUM,PORCINE/PF 5,000 UNIT/0.5 ML SYRINGE SQ SCH ×4 (06:50→23:00)
[2020-11-04] MEDS: PANTOPRAZOLE 40 MG TABLET PO SCH ×2 (06:50→22:58)
[2020-11-04 11:18] LABS: HCT 32.3 % (37.2-46.3); HGB 10.4 g/dL (12.0-15.0); MCH 32.3 pg (27.0-32.0); MCHC 32.2 g/dL (32.0-37.0); MCV 100.3 fL (80.0-97.0); Mean Platelet Volume 11.2 fL (9.5-12.2); Platelet Count 262 X 10*3/uL (140-440); RBC 3.22 X 10*6/uL (4.10-5.20); RDW 13.7 % (11.5-14.5); WBC 5.04 X 10*3/uL (4.50-10.00)
[2020-11-04 12:40] LABS: Basophils # (A) 0.07 X 10*3/uL (0.00-0.10); Basophils % (A) 1.4 %; Eosinophils # (A) 0.29 X 10*3/uL (0.04-0.35); Eosinophils % (A) 5.8 %; Lymphocytes # (A) 1.86 X 10*3/uL (0.90-5.00); Lymphocytes % (A) 36.9 %; Monocytes # (A) 0.61 X 10*3/uL (0.20-1.00); Monocytes % (A) 12.1 %; Neutrophils % (A) 43.6 %
[2020-11-04 14:07] LABS: African American GFR (CKD) 135.9 (60.0-200.0); Albumin 3.5 g/dL (3.80-4.90); Albumin/Globulin Ratio 1.3 (1.60-3.17); Anion Gap 5.7 mmol/L (4.00-12.00); BUN/Creat Ratio 11.67 Ratio (12.00-20.00); Carbon Dioxide 24.3 mmol/L (21.6-31.8); Globulin 2.7 g/dL (1.6-3.3); Non-African American GFR(CKD) 117.3 (60.0-200.0); Potassium 4.4 mmol/L (3.5-5.5); Total Bilirubin 0.9 mg/dL (0.2-1.2); Total Protein 6.2 g/dL (6.2-8.2)
[2020-11-04] MEDS: Acetaminophen-Codeine 300-30mg TAB PO PRN (16:13)
[2020-11-04] MEDS: clonazePAM 1 MG TAB PO PRN (16:40)
[2020-11-05] MEDS: Acetaminophen-Codeine 300-30mg TAB PO PRN ×2 (01:44→09:15)
[2020-11-05 02:18] VITALS: TEMP 98.7
[2020-11-05] MEDS: SODIUM CHLORIDE 0.9% 1,000 ML IV SCH ×2 (04:15→08:21)
[2020-11-05] MEDS: PIPERACILLIN-TAZOBACTAM 3.375 GM in SODIUM CHLORIDE 0.9% 100 ML IVPB SCH ×2 (04:15→12:36)
[2020-11-05] MEDS: HYDROmorphone 1 MG/ML 1 ML SYRINGE IVP PRN (04:23)
[2020-11-05] MEDS: HEPARIN SODIUM,PORCINE/PF 5,000 UNIT/0.5 ML SYRINGE SQ SCH ×2 (07:03→10:20)
[2020-11-05] MEDS: clonazePAM 1 MG TAB PO PRN (08:22)
[2020-11-05] MEDS: PANTOPRAZOLE 40 MG TABLET PO SCH (08:22)
[2020-11-05 08:28] VITALS: BP 133/89; PULSE 43; RESP 16
[2020-11-05 11:03] LABS: HCT 34.2 % (37.2-46.3); MCH 32.3 pg (27.0-32.0); MCHC 32.2 g/dL (32.0-37.0); MCV 100.3 fL (80.0-97.0); Mean Platelet Volume 11.2 fL (9.5-12.2); Platelet Count 305 X 10*3/uL (140-440); RBC 3.41 X 10*6/uL (4.10-5.20); RDW 13.5 % (11.5-14.5); WBC 5.12 X 10*3/uL (4.50-10.00)
--- NOTE | 2020-11-05 11:15 | P.PN ---
Subjective Progress Note Date: 11/04/20 Principal diagnosis: Fever with possible pneumonia Abdominal pain with recent history of acute recurrent pancreatitis. Patient is a 35-year-old female with a known history of chronic alcoholic pancreatitis, GERD, gastric ulcers, anxiety and history of lupus and chronic pain, anxiety/depression and previous history of smoking presents to ER with complaints of abdominal pain mainly in the epigastric and right upper quadrant. Patient was discharged from the hospital today morning and was being treated for acute pancreatitis and severe abdominal pain. Patient had workup including MRI of the pancreas and EGD was done. Patient was seen by mere and maia. Patient states that she went home and did some cleaning and suddenly started having abdominal pain and also developed fever. She also is complaining of shortness of breath. Patient presents to ER with complaints of pain and fever again. Otherwise denied any complains of chest pain. No complaints of diarrhea. No headache or neck stiffness. Gallbladder ultrasound showed large common bile duct could relate to gallbladder dysfunction. No gallstones seen. A large liver consistent with fatty infiltration. No signs of enteric mass. No free fluid. EKG showed normal sinus rhythm. Chest x-ray showed there is some mild linear infiltrate and atelectasis at the lung bases which is increased compared to old exam. Urinalysis showed cloudy with small blood and nitrite positive and moderate leukocyte esterase. WBCs 1. Laboratory data showed sodium 134 potassium 3.3 chloride 100 bicarb is 21 BUN 18 creatinine 0.63 Lipase level 160 10/18/2020 Patient is currently sitting in the bed comfortably. Awake alert and oriented 3. Still complains of abdominal pain. Lipase level is not elevated. Patient is requesting IV pain medications around the clock. We will transition to oral Tylenol 3 as per her home regimen and continue to monitor another 24 hours. Patient was encouraged with incentive spirometry. Also on broad-spectrum antibiotics in the form of Zosyn for possible pneumonia. Laboratory data showed WBC 5.04 hemoglobin 10.4 and platelets 262 BUN 5.7 creatinine 0.6 sodium 140 potassium 4.4 Current medications reviewed. Objective - Vital Signs Vital signs: Vital Signs Temp 98.6 F 11/04/20 14:46 Pulse 61 11/04/20 14:46 Resp 18 11/04/20 14:46 BP 118/76 11/04/20 14:46 Pulse Ox 96 11/04/20 14:46 Intake & Output 11/03/20 11/04/20 11/04/20 18:59 06:59 18:59 Output Total 3 Balance -3 Output: Urine 3 Other: # Voids 0 # Bowel Movements 0 - Exam PHYSICAL EXAMINATION: Patient is lying in the bed comfortably, no acute distress, awake alert and oriented.. HEENT: Normocephalic. Neck is supple. Pupils reactive. Nostrils clear. Oral c avity is moist. Neck reveals no JVD, carotid bruits, or thyromegaly. CHEST EXAMINATION: Trachea is central. Symmetrical expansion. Bibasilar diminished sounds and scattered crackles. Lung jimenez clear to auscultation and percussion. CARDIAC: Normal S1, S2 with no gallops. No murmurs ABDOMEN: Soft. Mild epigastric tenderness. Bowel sounds normal. No organomegaly. No abdominal bruits. Extremities: reveal no edema. No clubbing or cyanosis Neurologically awake, alert, oriented x3 with well-coordinated movements. No focal deficits noted Skin: No rash or skin lesions. Psychiatric: Coperative. Nonsuicidal Musculoskeletal: No joint swelling or deformity. Normal range of motion. - Labs CBC & Chem 7: 11/05/20 07:00 11/04/20 06:53 Labs: Abnormal Lab Results - Last 24 Hours (Table) 11/04/20 11/04/20 11/04/20 Range/Units 06:53 06:53 06:53 RBC 3.22 L (4.10-5.20) X 10*6/uL Hgb 10.4 L (12.0-15.0) g/dL Hct 32.3 L (37.2-46.3) % MCV 100.3 H (80.0-97.0) fL MCH 32.3 H (27.0-32.0) pg Chloride 110 H (96-109) mmol/L BUN 7.0 L (9.0-27.0) mg/dL BUN/Creatinine Ratio 11.67 L (12.00-20.00) Ratio Glucose 114 H (70-110) mg/dL AST 62 H (13-35) U/L Albumin 3.50 L (3.80-4.90) g/dL Albumin/Globulin Ratio 1.30 L (1.60-3.17) g/dL Procalcitonin 25.70 H (0.02-0.09) ng/mL Microbiology - Last 24 Hours (Table) 11/02/20 19:34 Blood Culture - Preliminary Blood No Growth after 24 hours Assessment and Plan Assessment: Fever with chest x-ray findings of mild anemia of infiltrate/atelectasis. Patient has been afebrile since admission. Possible pneumonia Recent history of Acute recurrent pancreatitis with prior history of alcohol abuse Severe abdominal pain associate with nausea and vomiting. Elevated liver enzymes fatty infiltration of liver CBD dilation 0.9 mm unchanged from previous CT. Macrocytosis likely due to history of alcohol abuse GERD Chronic pain Anxiety/depression Hepatic steatosis Prior history of smoking DVT prophylaxis with heparin subcu GI prophylaxis Full code Plan: Patient be continued on pain management with IV Dilaudid and transition to oral Tylenol 3 as per home regimen.. Continue with antibiotics in the form of Zosyn and follow-up culture report and progress to level was ordered. Encourage incentive spirometry. IV fluids will be discontinued. Continue with home medications and follow closely. Gallbladder ultrasound showed common bile duct dilatation patient does have previous bile duct dilatation and was seen by GI and workup including MRI of the pancreas was done... Continue to follow closely. Time with Patient: Greater than 30
[2020-11-05 11:44] LABS: Basophils # (A) 0.05 X 10*3/uL (0.00-0.10); Eosinophils # (A) 0.24 X 10*3/uL (0.04-0.35); Eosinophils % (A) 4.7 %; Lymphocytes # (A) 2.25 X 10*3/uL (0.90-5.00); Lymphocytes % (A) 43.9 %; Monocytes # (A) 0.53 X 10*3/uL (0.20-1.00); Monocytes % (A) 10.4 %; Neutrophils # (A) 2.04 X 10*3/uL (1.80-7.70); Neutrophils % (A) 39.8 %
[2020-11-05 14:51] LABS: African American GFR (CKD) 135.9 (60.0-200.0); Anion Gap 12.9 mmol/L (4.00-12.00); BUN/Creat Ratio 8.33 Ratio (12.00-20.00); Calcium 9.3 mg/dL (8.7-10.3); Carbon Dioxide 20.1 mmol/L (21.6-31.8); Non-African American GFR(CKD) 117.3 (60.0-200.0); Potassium 4.5 mmol/L (3.5-5.5)
--- NOTE | 2020-11-26 15:17 | P.DS ---
Providers Date of admission: 11/02/20 19:35 Expected date of discharge: 11/05/20 Attending physician: Zenon Lopez Consults: 11/03/20 17:28 Consult Physician Routine Consulting Provider: Anabell Hutson Consult Reason/Comments: Abdominal pain Do you want consulting provider notified?: Yes Primary care physician: Jude [facility] Course: Discharge diagnosis Fever with chest x-ray findings of linear area of infiltrate/atelectasis. Patient has been afebrile since admission. Possible pneumonia Recent history of Acute recurrent pancreatitis with prior history of alcohol abuse Severe abdominal pain associate with nausea and vomiting. Elevated liver enzymes fatty infiltration of liver CBD dilation 0.9 mm unchanged from previous CT. Macrocytosis likely due to history of alcohol abuse GERD Chronic pain Anxiety/depression Hepatic steatosis Prior history of smoking DVT prophylaxis with heparin subcu GI prophylaxis Full code Hospital course Patient is a 35-year-old female with a known history of chronic alcoholic pancreatitis, GERD, gastric ulcers, anxiety and history of lupus and chronic pain, anxiety/depression and previous history of smoking presents to ER with complaints of abdominal pain mainly in the epigastric and right upper quadrant. Patient was discharged from the hospital today morning and was being treated for acute pancreatitis and severe abdominal pain. Patient had workup including MRI of the pancreas and EGD was done. Patient was seen by gas and drowsy. Patient states that she went home and did some cleaning and suddenly started having abdominal pain and also developed fever. She also is complaining of shortness of breath. Patient presents to ER with complaints of pain and fever again. Otherwise denied any complains of chest pain. No complaints of diarrhea. No headache or neck stiffness. Gallbladder ultrasound showed large common bile duct could relate to gallbladder dysfunction. No gallstones seen. A large liver consistent with fatty infiltration. No signs of enteric mass. No free fluid. EKG showed normal sinus rhythm. Chest x-ray showed there is some mild linear infiltrate and atelectasis at the lung bases which is increased compared to old exam. Urinalysis showed cloudy with small blood and nitrite positive and moderate leukocyte esterase. WBCs 1. Laboratory data showed sodium 134 potassium 3.3 chloride 100 bicarb is 21 BUN 18 creatinine 0.63 Lipase level 160 11/04/2020 Patient is currently sitting in the bed comfortably. Awake alert and oriented 3. Still complains of abdominal pain. Lipase level is not elevated. Patient is requesting IV pain medications around the clock. We will transition to oral Tylenol 3 as per her home regimen and continue to monitor another 24 hours. Patient was encouraged with incentive spirometry. Also on broad-spectrum antibiotics in the form of Zosyn for possible pneumonia. Laboratory data showed WBC 5.04 hemoglobin 10.4 and platelets 262 BUN 5.7 creatinine 0.6 sodium 140 potassium 4.4 11/05/2020 Patient is currently sitting on the side of the bed. Awake alert and oriented x3. No complaints of abdominal pain. No chest pain or shortness of. Blood cultures have been negative. Patient has been afebrile since admission. No leukocytosis. Patient will be continued antibiotics in the form of Augmentin to complete the course for possible pneumonia. Otherwise patient is tolerating oral diet. No nausea vomiting or diarrhea. Pain is controlled with oral pain medications. IV pain medications/Dilaudid has been discontinued. Patient is being discharged home today. PHYSICAL EXAMINATION: Patient is lying in the bed comfortably, no acute distress, awake alert and oriented.. HEENT: Normocephalic. Neck is supple. Pupils reactive. Nostrils clear. Oral cavity is moist. Neck reveals no JVD, carotid bruits, or thyromegaly. CHEST EXAMINATION: Trachea is central. Symmetrical expansion. Lung jimenez clear to auscultation and percussion. CARDIAC: Normal S1, S2 with no gallops. No murmurs ABDOMEN: Soft. Mild epigastric tenderness. Bowel sounds normal. No organomegaly. No abdominal bruits. Extremities: reveal no edema. No clubbing or cyanosis Neurologically awake, alert, oriented x3 with well-coordinated movements. No focal deficits noted Skin: No rash or skin lesions. Psychiatric: Coperative. Nonsuicidal Musculoskeletal: No joint swelling or deformity. Normal range of motion. Discharge physical examination was done and vitals reviewed. Patient Condition at Discharge: Stable Plan - Discharge Summary Discharge Rx Participant: No New Discharge Prescriptions: New Amoxicillin/Potassium Clav [Augmentin 875-125 Tablet] 1 tab PO Q12HR 5 Days #10 tab Continue clonazePAM [KlonoPIN] 1 mg PO TID PRN PRN Reason: Anxiety Vortioxetine Hydrobromide [Trintellix] 10 mg PO DAILY #30 tablet hydrOXYzine pamoate [Vistaril] 25 mg PO QID PRN #120 cap PRN Reason: Anxiety Folic Acid (Unknown Dose) 1 tab PO DAILY Cholecalciferol (Vitamin D3) [Vitamin D3 (3000 Iu)] 75 mcg PO DAILY Baclofen [Lioresal] 5 - 10 mg PO TID PRN PRN Reason: Muscle Spasm Fluticasone Nasal [place] [Flonase Nasal [place]] 1 spray EA NOSTRIL DAILY PRN PRN Reason: Congestion Acetaminophen with Codeine [Tylenol w/Codeine #4 Tablet] 1 tab PO Q8H PRN #12 cap PRN Reason: Pain Loperamide HCl [Loperamide] 4 mg PO QID PRN PRN Reason: Diarrhea Spironolactone [Aldactone] 25 mg PO DAILY Dicyclomine HCl 20 mg PO QID PRN PRN Reason: Gi Upset Pantoprazole Sodium [Protonix] 40 mg PO BID #60 tablet. Cholestyramine (with Sugar) [Questran Packet] 4 gm PO BID@1000,1800 PRN #30 packet PRN Reason: Diarrhea Discharge Medication List clonazePAM [KlonoPIN] 1 mg PO TID PRN 10/20/18 [History] Vortioxetine Hydrobromide [Trintellix] 10 mg PO DAILY #30 tablet 03/03/19 [Rx] hydrOXYzine pamoate [Vistaril] 25 mg PO QID PRN #120 cap 03/03/19 [Rx] Baclofen [Lioresal] 5 - 10 mg PO TID PRN 08/26/20 [History] Cholecalciferol (Vitamin D3) [Vitamin D3 (3000 Iu)] 75 mcg PO DAILY 08/26/20 [History] Fluticasone Nasal [place] [Flonase Nasal [place]] 1 spray EA NOSTRIL DAILY PRN 08/26/20 [History] Folic Acid (Unknown Dose) 1 tab PO DAILY 08/26/20 [History] Loperamide HCl [Loperamide] 4 mg PO QID PRN 08/26/20 [History] Spironolactone [Aldactone] 25 mg PO DAILY 08/26/20 [History] Dicyclomine HCl 20 mg PO QID PRN 09/19/20 [History] Pantoprazole Sodium [Protonix] 40 mg PO BID #60 tablet. 09/20/20 [Rx] Cholestyramine (with Sugar) [Questran Packet] 4 gm PO BID@1000,1800 PRN #30 packet 10/03/20 [Rx] Acetaminophen with Codeine [Tylenol w/Codeine #4 Tablet] 1 tab PO Q8H PRN #12 cap 11/02/20 [Rx] Amoxicillin/Potassium Clav [Augmentin 875-125 Tablet] 1 tab PO Q12HR 5 Days #10 tab 11/05/20 [Rx] Follow up Appointment(s)/Referral(s): Jude Barksdale DO [Primary Care Provider] - 12/05/20 8:00 am Patient Instructions/Handouts: Pancreatitis (DC), Pneumonia (DC) Discharge Disposition: HOME SELF-CARE
== END 2020-11-05 13:40 | disposition home or self-care (01) | DRG 193 ==
LOC: EC 16:13 → 4SSUR 19:35
PROVIDERS: ADMIT Internal Medicine; ATTEND Internal Medicine
DX: J18.9 Pneumonia, unspecified organism (principal); K85.90 Acute pancreatitis without necrosis or infection, unspecified; K86.0 Alcohol-induced chronic pancreatitis; J98.11 Atelectasis; D75.89 Other specified diseases of blood and blood-forming organs; F32.9 Major depressive disorder, single episode, unspecified; F41.9 Anxiety disorder, unspecified; G89.29 Other chronic pain; K21.9 Gastro-esophageal reflux disease without esophagitis; K82.8 Other specified diseases of gallbladder; Z20.822 Contact with and (suspected) exposure to COVID-19; Z79.899 Other long term (current) drug therapy; Z87.11 Personal history of peptic ulcer disease; Z87.891 Personal history of nicotine dependence; K76.0 Fatty (change of) liver, not elsewhere classified; K83.8 Other specified diseases of biliary tract; R16.0 Hepatomegaly, not elsewhere classified; K44.9 Diaphragmatic hernia without obstruction or gangrene; K52.9 Noninfective gastroenteritis and colitis, unspecified; F10.10 Alcohol abuse, uncomplicated
CPT/HCPCS: 36415; 71046; 76705; 80048; 80053; 81001; 81025; 82150; 83605; 83690; 84145; 85025; 87040; 87635; 93005; 94760; 96365; 96367; 96375; 96376; 99285

== ENCOUNTER → 2021-02-14 | Outpatient (CLI) | payer OTHER ==
[2021-02-14 22:36] LABS: Anti-Smith Ab Interp NEGATIVE (NEGATIVE); Cyclic Citrull Pep IgG Unit 0.5 U/mL; Cyclic Citrullinated Pep IgG NEGATIVE (NEGATIVE); DNA Double-Stranded Indetermin (NEGATIVE); JO-1 IgG Antibody <0.2 AI; Scleroderma SC-70 Ab <0.2 AI
== END | disposition home or self-care (01) ==
LOC: LABWHC1 13:01
PROVIDERS: ATTEND Psychiatry & Neurology Pain Medicine
DX: M25.50 Pain in unspecified joint (principal)
CPT/HCPCS: 36415; 83516; 86038; 86200; 86225; 86235

== ENCOUNTER → 2021-04-04 | Outpatient (CLI) | payer OTHER | END | disposition home or self-care (01) | LOC: LABWHC1 13:29 | PROVIDERS: ATTEND Psychiatry & Neurology Neurology | DX: M79.18 Myalgia, other site (principal); G89.29 Other chronic pain | CPT/HCPCS: 36415; 85652; 86140 ==

== ENCOUNTER → 2021-10-06 | Outpatient (CLI) | payer OTHER ==
--- NOTE | 2021-10-06 08:47 | MR ---
EXAMINATION TYPE: MR liver wo con DATE OF EXAM: 10/06/2021 COMPARISON: Right pancreas October 28, 2020. CT abdomen and pelvis September 20, 2020 and older studies thr [facility] [id number]. HISTORY: Jaundice, abnormal labs Standard multiplanar, multisequence MRI departmental protocol Multiplanar, multisequence images of the abdomen were acquired without contrast. Diffusion weighted i maging was performed. FINDINGS: Liver: Mild hepatomegaly with prominent right hepatic lobe redemonstrated. Liver shows diffuse signal dropout consistent with fatty infiltrative hepatocellular disease. No surrounding ascites. No obviou s suspicious or significant solid or cystic mass on noncontrast images. There is incidental 3 mm thin -walled cyst in the right hepatic lobe coronal image 8. Gallbladder shows no intraluminal gallstones or surrounding fluid. No suspicious intrahepatic or extrahepatic biliary dilatation is seen. Other: Lung bases are grossly clear. The spleen remains within normal limits. Normal adrenal glands. There is new 10 mm T1 hypointense and T2 hyperintense lesion in the body of the pancreas coronal imag e 17 and axial image 67 series 402 anteriorly felt to reflect product of pancreatitis. Correlate clin ically. Visualization of pancreatic duct without abnormal dilatation. No suspicious small or large bowel dilatation. No intra-abdominal ascites or greater than 1 cm adenop athy. Visualized osseous structures are intact. IMPRESSION: Stable mild hepatomegaly and prominent right hepatic lobe with fatty infiltrative hepatoc ellular disease. No new ascites or biliary dilatation. Suboptimal evaluation for focal intrahepatic m asses without contrast. No obvious new suspicious solid mass on noncontrast imaging.
== END | disposition home or self-care (01) ==
LOC: RADMRIMAIN 07:31
PROVIDERS: ATTEND Family Medicine
DX: R16.0 Hepatomegaly, not elsewhere classified (principal)
CPT/HCPCS: 74181

== ENCOUNTER → 2023-03-09 | Outpatient (CLI) | payer OTHER ==
--- NOTE | 2023-03-14 08:56 | CT ---
EXAMINATION TYPE: CT abdomen wo con CT DLP: 586 mGycm, Automated exposure control for dose reduction was used. DATE OF EXAM: 03/09/2023 1:00 PM COMPARISON: MR liver without 10/06/2021 CLINICAL INDICATION:Female, 37 years old with history of R74.01 ELEVATION OF LEVELS OF LIVER TRANSAMI NASE L; Elevated levels of liver transaminase. TECHNIQUE: Axial CT of the abdomen without contrast. Sagittal and coronal reformats were created on a separate workstation. Contrast used: mL of , (none if empty) Oral contrast used: with Oral Contrast (none if empty) FINDINGS: Exam is limited without IV contrast. LOWER CHEST: Heart size is within normal limits. Poor visualization of the interventricular septum, c an be seen with anemia. Clear lung bases. LIVER: Liver is enlarged with the right lobe measuring 25 cm. Diffusely decreased attenuation of the parenchyma consistent with hepatic steatosis. There is no suggestion of mass by this unenhanced exam. Gallbladder appears mildly prominent without evidence for calcified gallstones or pericholecystic inf lammation. The CBD appears mildly prominent measuring up to about 9 mm and seems to taper relatively normally distally but there is some limitation by multiple calcifications in the pancreas. PANCREAS: Multiple coarse parenchymal calcifications are seen throughout the pancreas, often associat ed with chronic pancreatitis. No acute inflammatory changes. SPLEEN: Unremarkable. ADRENAL GLANDS: Unremarkable. KIDNEYS AND URETERS: Left kidney 12.5 cm in length, right kidney 9.7 cm. A couple tiny low-attenuatio n foci in the inferior pole on the right, too small to characterize but could be cysts vs AML. There is a punctate calcification in the mid pole left kidney. There is no hydronephrosis evident. STOMACH AND BOWEL: Small to moderate hiatal hernia. Contrast traverses the stomach and multiple small bowel loops. Stomach and small bowel are nondistended, no evidence of obstruction. Visualized portio ns of the colon, particularly the right and proximal transverse, show mural fat deposition suggesting prior episodes of colitis. Appendix not seen or included on the exam. PERITONEUM/RETROPERITONEUM: No evidence of pneumoperitoneum or free fluid. VASCULATURE: Aorta and major branches are grossly unremarkable. No AAA. IVC appears normal caliber. LYMPH NODES: No gross evidence for lymphadenopathy. SOFT TISSUE/ABDOMINAL WALL: Unremarkable MUSCULOSKELETAL: No acute osseous abnormalities. Mild disc degeneration changes are present throughou t the thoracolumbar spine. Partially visualized healed/healing fractures of the left posterolateral 10th and ninth ribs, and partially visualized lateral sixth rib. IMPRESSION: 1. Hepatomegaly and hepatic steatosis. No additional abnormality detected on unenhanced exam. 2. Mildly prominent CBD, of uncertain etiology or significance. Correlate clinically with LFTs. MRCP or ERCP may be considered as warranted clinically. 3. Other stable chronic and likely incidental findings as above.
== END | disposition home or self-care (01) ==
LOC: RADCTMAIN 11:56
PROVIDERS: ATTEND Family Medicine
DX: K76.0 Fatty (change of) liver, not elsewhere classified (principal); R16.0 Hepatomegaly, not elsewhere classified; R74.01 Elevation of levels of liver transaminase levels
CPT/HCPCS: 74150

== ENCOUNTER → 2024-02-11 | Outpatient (CLI) | payer OTHER ==
[2024-02-11 19:04] LABS: Magnesium 1.3 mg/dL (1.5-2.4)
[2024-02-11 19:05] LABS: ALT 56 U/L (8-44); AST 198 U/L (13-35); Albumin 2.9 g/dL (3.8-4.9); Albumin/Globulin Ratio 0.72 Ratio (1.60-3.17); Alkaline Phosphatase 93 U/L (41-126); BUN/Creat Ratio 8.67 Ratio (12.00-20.00); Blood Urea Nitrogen 5.2 mg/dL (9.0-27.0); Chloride 99 mmol/L (96-109); Glucose 114 mg/dL (70-110); Potassium 4.3 mmol/L (3.5-5.5); Sodium 137 mmol/L (135-145); Total Bilirubin 12.9 mg/dL (0.3-1.2); Total Protein 6.9 g/dL (6.2-8.2)
[2024-02-11 19:06] LABS: Bilirubin, Conjugated 7.23 mg/dL (0.20-0.40); Bilirubin,Unconjugated 5.67 mg/dL (0.20-1.00)
[2024-02-11 20:15] LABS: HCT 26.3 % (37.2-46.3); HGB 8.1 g/dL (12.0-15.0); MCH 37.7 pg (27.0-32.0); MCHC 30.8 g/dL (32.0-37.0); MCV 122.3 FL (80.0-97.0); Mean Platelet Volume 10.9 FL (9.5-12.2); NRBC Per 100 WBC 0 X 10*3/uL (0.00-0.01); Platelet Count 197 X 10*3/uL (140-440); RBC 2.15 X 10*6/uL (4.10-5.20); RDW 23.6 % (11.5-14.5); WBC 11.21 X 10*3/uL (4.50-10.00)
[2024-02-11 20:42] LABS: Anisocytosis (M) 2+; Basophils # (A) 0.09 X 10*3/uL (0.00-0.10); Basophils % (A) 0.8 %; Eosinophils # (A) 0.26 X 10*3/uL (0.04-0.35); Eosinophils % (A) 2.3 %; Lymphocytes # (A) 1.98 X 10*3/uL (0.90-5.00); Lymphocytes % (A) 17.7 %; Macrocytosis (M) 2+; Monocytes # (A) 0.93 X 10*3/uL (0.20-1.00); Monocytes % (A) 8.3 %; Neutrophils % (A) 70.5 %
== END | disposition home or self-care (01) ==
LOC: LABWHC1 11:32
PROVIDERS: ATTEND Family Medicine
DX: K86.1 Other chronic pancreatitis (principal)
CPT/HCPCS: 36415; 80053; 82248; 83735; 85025

== ENCOUNTER → 2024-06-23 | Outpatient (CLI) | payer OTHER ==
--- NOTE | 2024-06-23 18:31 | US ---
EXAMINATION TYPE: US mass soft tissue chest/back DATE OF EXAM: 06/23/2024 COMPARISON: NONE CLINICAL INDICATION: Female, 38 years old with history of R22.2 Localized swelling, mass and lump, tr unk; TECHNIQUE: FINDINGS: Heterogenous area at patient AOC = 1.9 x 1.4 x 1.0 cm. Mixed area of lobulated hypoechoic region with a more echogenic area along the margin. The location is atypical for a lymph node. There is also no associated vascularity. IMPRESSION: Heterogeneous area measuring 1.9 cm at the patient's right gluteal area of concern localized to the s ubcutaneous adipose layer. Exact etiology is unclear. Correlate clinically to exclude small early foc us of infection. Some nonspecific trauma with fat necrosis is also a consideration. Recommend follow- up ultrasound in 4-6 weeks to reassess. [facility], , 06/23/2024 6:29 PM
== END | disposition home or self-care (01) ==
LOC: RADUSWWP 13:22
PROVIDERS: ATTEND Family Medicine
DX: R22.2 Localized swelling, mass and lump, trunk (principal)